=== PATIENT | male | born 1955 | race Caucasian/White ===

== ENCOUNTER → 2016-11-05 | Outpatient (CLI) | payer OTHER ==
[~2016-11-05] MED LIST: ASPIRIN81 M1; FLOMAX0.4 MG; LANTUS100 U/ML SC; LASIX40 MG; LIPITOR40 MG; LISINOPRIL5 MG; LOPID600 MG; LYRICA150 MG PO; METFORMIN500 MG PO; METHADONE10 MG; METOPROLOL25 MG; MICRO-K LS20 MEQ; PERCOCET 325 MG1 TA2; PRILOSEC40 MG; REGLAN10 MG; RESTORIL15 MG
== END | disposition home or self-care (01) ==
LOC: RAD 13:08
DX: M47.897 Other spondylosis, lumbosacral region (principal); R10.30 Lower abdominal pain, unspecified; M96.1 Postlaminectomy syndrome, not elsewhere classified; I70.0 Atherosclerosis of aorta; M16.11 Unilateral primary osteoarthritis, right hip

== ENCOUNTER 2017-03-05 14:53 | Inpatient (IN) | payer OTHER ==
[~2017-03-05] VITALS: Ht 172.7 cm; Wt 96.3 kg
--- NOTE | ~2017-03-05 | O ---
[place], [place] OPERATIVE NOTE NAME: LENNY ROBINS SR UNIT #: [id number] ROOM: [facility] DOCTOR: VICTOR M ALCALA DPM BIRTHDATE: [birth year] DOS: 03/07/2017 SURGEON: Victor M Alcala DPM PREOPERATIVE DIAGNOSIS: Abscess, right foot secondary to foreign body as well as diabetes. POSTOPERATIVE DIAGNOSIS: Abscess, right foot secondary to foreign body as well as diabetes. PROCEDURE: Incision and drainage of abscess, right foot. ANESTHESIA: LMAC. INJECTABLES: 10 mL of 0.5% Marcaine plain. ESTIMATED BLOOD LOSS: About 1 mL. COMPLICATIONS: None. DESCRIPTION OF PROCEDURE: After proper preoperative evaluation, patient brought in the OR and placed on the OR table in supine position. Anesthesia was then administered per anesthesia record. Next, a total of 10 mL of 0.5% Marcaine plain was injected proximal to the right second MPJ in a field block fashion. The area was then prepped and draped in usual sterile manner. Right foot was lowered to the surgical field. Attention was directed to the right foot where there was noted to be positive edema and fluctuance localized to the plantar right foot just at the base of the right second toe near the MPJ. There was erythema dorsally extending to the dorsal mid foot with increased temperature and there was a small puncture wound noted at the plantar right second MPJ. Next, using a 15 blade, a 2.5 cm incision was made overlying the puncture wound and there was found to be an abscess that was into subcutaneous tissue about 2 mL of purulent drainage was drained from the area. The area was inspected and no remaining foreign body was seen at this time. The area did track dorsally towards the second interspace and using a [place] elevator, this tract was extended dorsally and a 1 cm incision was made dorsally. There was noted to be about 0.5 mL of purulence at the dorsal incision. Cultures were then taken, will be sent for Gram stain culture and sensitivity, aerobic and anaerobic. Pulse stonecutter assistant was then used to irrigate 3 liters of normal saline through the wounds. Half inch plain Nu Gauze packing was placed followed by 4 x 4, dry dressing as well as Aleksandar wrap. Please note no foreign body was found. No bone appeared to be involved. The patient tolerated the procedure and anesthesia well and left the OR with vital signs stable and intact and transferred to the recovery room. The patient does have a consultation with Dr. Meyer for vascular evaluation and we will start daily dressing changes to the area. [place], [place] OPERATIVE NOTE NAME: ROBINS SRLENNY Kelsy UNIT #: [id number] ROOM: [facility] DOCTOR: VICTOR M ALCALA DPM BIRTHDATE: [birth year] VICTOR M ALCALA DPM CM:OPRECORD:OPERATIVE NOTE [id number] VICTOR M ALCALA DPM 03/08/17 0942 interface
--- NOTE | ~2017-03-05 | PR ---
[place], [place] PROGRESS NOTE NAME: LENNY ROBINS SR [id number] UNIT #: [id number] ROOM: 501 DOCTOR: HERIBERTO BARRIOS DPM BIRTHDATE: [birth year] DOS: 03/09/2017 SUBJECTIVE: The patient is seen postop I and D of abscess, right foot. The patient has some discomfort to the area, but otherwise feels improvement. OBJECTIVE: Upon removal of the dressing and packing, the edema appears resolved to the forefoot that I had noted on . There is decreased localized erythema. Upon removal of the packing, there are no signs of purulent drainage or foul odor. No signs of gangrenous changes. He at this point appears to be doing well post I and D of abscess. Again, the patient's vascular status is decreased as mentioned in my previous note. The patient was seen by Dr. Meyer and will be going for arterial procedure with possible stents on Saturday. His LUISITO on the right was 0.45 as I previously mentioned. ASSESSMENT: Postop incision and drainage, right foot. PLAN: Evaluation and management. Discussed with the patient extensively the importance of undergoing the arterial procedure to salvage his foot and leg. The patient is completely understandable and agreeable to the procedure and realizes the risk that he is currently in with the infected foot with the decreased circulation. I changed the dressing and packing consisting of 0.5 inch plain packing with wet to dry dressing with 4 x 4s, Kerlix and Aleksandar bandage and we will continue via nursing b.i.d. We will see the patient tomorrow or Saturday for followup. He is stable at this time and again will be going tomorrow or Saturday to [place] with Dr. Meyer for vascular intervention to help heal the patient's right foot infection and ulcerative lesions. HERIBERTO BARRIOS DPM CM:PNTRANS [id number] HERIBERTO BARRIOS DPM 03/09/17 1023 interface
--- NOTE | ~2017-03-05 | PR ---
[place], [place] PROGRESS NOTE NAME: LENNY ROBINS SR [facility] #: [id number] UNIT #: [id number] ROOM: 501 DOCTOR: HERIBERTO BARRIOS DPM BIRTHDATE: [birth year] DOS: 03/07/2017 SUBJECTIVE: The patient presents for followup of cellulitis, abscess of the right foot. The patient had a splinter removed from his foot yesterday by Dr. Montero. The patient feels overall improvement. Clinically, there is decreased erythema from the marked line of demarcation; however, there is still significant edema and erythema to the right forefoot. There is an open wound to the plantar second right MPJ with small amount of purulence noted and increased temperature consistent with possible underlying abscess. The patient was unable to have an MRI performed due to metal fragment in his hands. The patient's radiograph revealed soft tissue swelling consistent with cellulitis. No soft tissue gas or radiopaque foreign body, no apparent osteomyelitis. The patient's ultrasound arterial exam did reveal quickly reduced LUISITO indices. Bilateral moderate significant femoral and popliteal tandem stenosis. ASSESSMENT: Underlying abscess, plantar second right MPJ peripheral vascular disease. PLAN: Evaluation and management were discussed with the patient. I think he still has an underlying small abscess to the area and I recommend surgical incision and drainage meticulously due to the patient's vascular findings. The case will be performed tomorrow by Dr. Alcala. I discussed the case in detail with Dr. Alcala. Ordered n.p.o. after midnight. Ordered the consent for surgery. The [facility] will be held for surgery tomorrow, ordered PT, PTT for the morning and we will also consult Dr. Meyer for a vascular consultation to help with postoperative healing. I do not believe the surgical procedure should wait until vascular intervention is performed due to the erythema and edema, underlying high A1c and the potential for progression of the infection. The patient understood this and we will proceed with surgical intervention tomorrow. HERIBERTO BARRIOS DPM CM:PNTRANS [id number] HERIBERTO BARRIOS DPM 03/07/17 3529 interface
[~2017-03-05 14:53] MED LIST changes: -ASPIRIN81 M1; +ASPIRIN81 M1 PO; -LIPITOR40 MG; +LIPITOR40 MG PO; -LYRICA150 MG PO; +LYRICA200 M1 PO
[2017-03-05 15:03] VITALS: BP 157/73
[2017-03-05 15:43] LABS: BASO % 0.3 % (0.0-1.0); EOS % 0.2 % (1.0-4.0); HEMATOCRIT 35.5 % (42.0-52.0); HEMOGLOBIN 11.6 g/dl (14.0-18.0); LYMPH # 1.9 10*3/uL (1.3-4.4); LYMPH % 13.2 % (27.0-41.0); MEAN CELL VOLUME 81.4 fl (80.0-94.0); MEAN CORPUSCULAR HGB 26.6 pg (27.0-31.0); MEAN CORPUSCULAR HGB CONC 32.7 g/dl (33.0-37.0); MEAN PLATELET VOLUME 11.2 fl (9.6-12.3); MONO # 1.2 10*3/uL (0.1-1.0); NEUT # 11.3 10*3/uL (2.3-7.9); NEUT % 77.9 % (47.0-73.0); PLATELET COUNT AUTOMATED 216 10*3/uL (130-400); RED BLOOD COUNT 4.36 10*6/uL (4.50-5.90); RED CELL DISTRI WIDTH 14.7 % (0-14.5); WHITE BLOOD COUNT 14.5 10*3/uL (4.8-10.8)
[2017-03-05 16:00] LABS: ALBUMIN 2.9 gm/dl (3.1-4.5); ALKALINE PHOSPHATASE 86 U/L (45-117); BUN 22 mg/dl (7-24); CHLORIDE 95 mmol/L (98-107); CREATININE 1.02 mg/dL (0.70-1.30); POTASSIUM 3.7 mmol/L (3.5-5.1); SGOT/AST 10 IU/L (3-35); SGPT/ALT 20 U/L (12-78); SODIUM 134 mmol/L (136-145); TOTAL PROTEIN 6.9 gm/dL (6.4-8.2); TROPONIN I < 0.015 ng/ml (<0.045)
[2017-03-05 17:15] VITALS: BP 128/56
[2017-03-05] MEDS ORDERED: CARVEDILOL3.125 MG PO (17:36)
[2017-03-05] MEDS ORDERED: LOSARTAN POTASS50 M1 PO (17:36)
[2017-03-05] MEDS ORDERED: MECLIZINE HCL25 M2 PO (17:38)
[2017-03-05 17:50] VITALS: BP 143/52
[2017-03-05 20:00] VITALS: BP 134/46
[2017-03-05] MEDS ORDERED: HUMALOG100 UNIT/1 SQ (21:25)
[2017-03-06] VITALS: BP 189/74
[2017-03-06] MEDS ORDERED: METHADONE HCL10 MG PO (02:57)
[2017-03-06] MEDS ORDERED: GOOD NEIGHBOR L10 MG PO (02:58)
[2017-03-06] MEDS ORDERED: FUROSEMIDE40 MG PO (02:58)
[2017-03-06] MEDS ORDERED: GEMFIBROZIL600 MG PO (02:58)
[2017-03-06] MEDS ORDERED: POTASSIUM CHLO20 ME4 PO (02:59)
[2017-03-06] MEDS ORDERED: ATORVASTATIN CA20 M1 PO (03:00)
[2017-03-06] MEDS ORDERED: TEMAZEPAM15 M1 PO (03:00)
[2017-03-06] MEDS ORDERED: OMEPRAZOLE40 MG PO (03:00)
[2017-03-06] MEDS ORDERED: FLONASE ALLERG9.9 ML NAS (03:01)
[2017-03-06] MEDS ORDERED: ZETIA10 MG PO (03:02)
[2017-03-06 06:20] LABS: BASO % 0.3 % (0.0-1.0); EOS # 0.1 10*3/uL (0.0-0.4); EOS % 1.3 % (1.0-4.0); HEMATOCRIT 36.8 % (42.0-52.0); HEMOGLOBIN 11.9 g/dl (14.0-18.0); LYMPH # 2.6 10*3/uL (1.3-4.4); LYMPH % 25.2 % (27.0-41.0); MEAN CELL VOLUME 83.6 fl (80.0-94.0); MEAN CORPUSCULAR HGB CONC 32.3 g/dl (33.0-37.0); MEAN PLATELET VOLUME 11.3 fl (9.6-12.3); MONO # 0.9 10*3/uL (0.1-1.0); MONO % 9.2 % (3.0-9.0); NEUT # 6.5 10*3/uL (2.3-7.9); NEUT % 63.5 % (47.0-73.0); PLATELET COUNT AUTOMATED 215 10*3/uL (130-400); RED CELL DISTRI WIDTH 14.7 % (0-14.5); WHITE BLOOD COUNT 10.2 10*3/uL (4.8-10.8)
[2017-03-06 06:26] LABS: ALBUMIN 2.6 gm/dl (3.1-4.5); ALKALINE PHOSPHATASE 100 U/L (45-117); CHLORIDE 100 mmol/L (98-107); CHOLESTEROL 86 mg/dL (<200); CREATININE 0.62 mg/dL (0.70-1.30); FREE T4 1.03 ng/dl (0.76-1.46); HDL CHOLESTEROL 38 mg/dl (40-60); LDL CHOLESTEROL 22 mg/dL (9-159); PHOSPHOROUS 2.1 mg/dL (2.5-4.9); POTASSIUM 3.4 mmol/L (3.5-5.1); SGOT/AST 9 IU/L (3-35); SGPT/ALT 17 U/L (12-78); SODIUM 140 mmol/L (136-145); TOTAL PROTEIN 6.5 gm/dL (6.4-8.2); TRIGLYCERIDES 131 mg/dl (<150); VLDL CHOLESTEROL 26 mg/dL (6-40)
[2017-03-06 06:27] LABS: ACT PARTIAL THROMBO TIME 29.1 SECONDS (20.8-31.5)
[2017-03-06 06:37] LABS: BUN 11 mg/dl (7-24)
[2017-03-06 08:00] VITALS: BP 194/67
[2017-03-06] MEDS ORDERED: TOUJEO SOL300 UNIT/1 SQ (08:02)
[2017-03-06] MEDS ORDERED: Percocet 325 MG1 TAB PO (08:06)
[2017-03-06 12:00] VITALS: BP 163/54
[2017-03-06 16:00] VITALS: BP 138/57
[2017-03-06 20:00] VITALS: BP 180/64
[2017-03-07] VITALS: BP 167/52
[2017-03-07 07:37] LABS: BASO # 0.1 10*3/uL (0.0-0.1); BASO % 0.5 % (0.0-1.0); EOS # 0.2 10*3/uL (0.0-0.4); EOS % 2.2 % (1.0-4.0); HEMATOCRIT 35.6 % (42.0-52.0); HEMOGLOBIN 11.3 g/dl (14.0-18.0); LYMPH # 2.5 10*3/uL (1.3-4.4); MEAN CELL VOLUME 83.8 fl (80.0-94.0); MEAN CORPUSCULAR HGB 26.6 pg (27.0-31.0); MEAN CORPUSCULAR HGB CONC 31.7 g/dl (33.0-37.0); MEAN PLATELET VOLUME 11.7 fl (9.6-12.3); MONO # 0.9 10*3/uL (0.1-1.0); MONO % 8.5 % (3.0-9.0); NEUT # 6.5 10*3/uL (2.3-7.9); NEUT % 63.4 % (47.0-73.0); PLATELET COUNT AUTOMATED 209 10*3/uL (130-400); RED BLOOD COUNT 4.25 10*6/uL (4.50-5.90); RED CELL DISTRI WIDTH 14.8 % (0-14.5); WHITE BLOOD COUNT 10.2 10*3/uL (4.8-10.8)
[2017-03-07 07:45] LABS: BUN 11 mg/dl (7-24); CHLORIDE 101 mmol/L (98-107); CREATININE 0.51 mg/dL (0.70-1.30); SODIUM 136 mmol/L (136-145)
[2017-03-07 07:50] LABS: POTASSIUM 4.8 mmol/L (3.5-5.1)
[2017-03-07 08:00] VITALS: BP 134/56
[2017-03-07 12:00] VITALS: BP 142/52
[2017-03-07 16:00] VITALS: BP 124/100
[2017-03-07 20:00] VITALS: BP 137/77
[2017-03-08] VITALS (9 sets, daily range): BP systolic 108–182; BP diastolic 43–72
[2017-03-08 06:43] LABS: BASO % 0.4 % (0.0-1.0); EOS # 0.2 10*3/uL (0.0-0.4); EOS % 2.2 % (1.0-4.0); HEMATOCRIT 32.8 % (42.0-52.0); HEMOGLOBIN 10.7 g/dl (14.0-18.0); LYMPH # 2.2 10*3/uL (1.3-4.4); LYMPH % 22.3 % (27.0-41.0); MEAN CELL VOLUME 81.8 fl (80.0-94.0); MEAN CORPUSCULAR HGB 26.7 pg (27.0-31.0); MEAN CORPUSCULAR HGB CONC 32.6 g/dl (33.0-37.0); MEAN PLATELET VOLUME 11.3 fl (9.6-12.3); MONO # 0.8 10*3/uL (0.1-1.0); MONO % 8.6 % (3.0-9.0); NEUT # 6.4 10*3/uL (2.3-7.9); NEUT % 66.1 % (47.0-73.0); PLATELET COUNT AUTOMATED 216 10*3/uL (130-400); RED BLOOD COUNT 4.01 10*6/uL (4.50-5.90); RED CELL DISTRI WIDTH 14.6 % (0-14.5); WHITE BLOOD COUNT 9.6 10*3/uL (4.8-10.8)
[2017-03-08 07:12] LABS: ACT PARTIAL THROMBO TIME 28.9 SECONDS (20.8-31.5)
[2017-03-08 07:16] LABS: CHLORIDE 98 mmol/L (98-107); POTASSIUM 4.1 mmol/L (3.5-5.1); SODIUM 137 mmol/L (136-145)
[2017-03-08 07:21] LABS: BUN 12 mg/dl (7-24); CREATININE 0.63 mg/dL (0.70-1.30)
[2017-03-09] VITALS: BP 116/94; BP 145/45
[2017-03-09 08:00] VITALS: BP 144/50
[2017-03-09 12:00] VITALS: BP 119/67
[2017-03-09 16:00] VITALS: BP 168/54
[2017-03-09 20:00] VITALS: BP 104/74; BP 147/84
[2017-03-10] VITALS: BP 147/53
[2017-03-10 07:20] LABS: BASO # 0.1 10*3/uL (0.0-0.1); BASO % 0.6 % (0.0-1.0); EOS # 0.3 10*3/uL (0.0-0.4); EOS % 3.4 % (1.0-4.0); HEMATOCRIT 32.7 % (42.0-52.0); HEMOGLOBIN 10.3 g/dl (14.0-18.0); MEAN CELL VOLUME 84.1 fl (80.0-94.0); MEAN CORPUSCULAR HGB 26.5 pg (27.0-31.0); MEAN CORPUSCULAR HGB CONC 31.5 g/dl (33.0-37.0); MONO # 0.7 10*3/uL (0.1-1.0); MONO % 8.9 % (3.0-9.0); NEUT # 4.8 10*3/uL (2.3-7.9); NEUT % 61.5 % (47.0-73.0); PLATELET COUNT AUTOMATED 238 10*3/uL (130-400); RED BLOOD COUNT 3.89 10*6/uL (4.50-5.90); RED CELL DISTRI WIDTH 14.6 % (0-14.5); WHITE BLOOD COUNT 7.8 10*3/uL (4.8-10.8)
[2017-03-10 07:49] LABS: BUN 13 mg/dl (7-24); CHLORIDE 100 mmol/L (98-107); CREATININE 0.56 mg/dL (0.70-1.30); POTASSIUM 4.3 mmol/L (3.5-5.1); SODIUM 138 mmol/L (136-145)
[2017-03-10 08:00] VITALS: BP 137/55
[2017-03-10 12:00] VITALS: BP 160/58
[2017-03-10 16:00] VITALS: BP 165/59
[2017-03-10 19:54] VITALS: BP 178/50
[2017-03-10 23:47] VITALS: BP 184/62
[2017-03-11 07:24] LABS: BASO # 0.1 10*3/uL (0.0-0.1); BASO % 0.6 % (0.0-1.0); EOS # 0.3 10*3/uL (0.0-0.4); EOS % 3.9 % (1.0-4.0); HEMATOCRIT 33.4 % (42.0-52.0); MEAN CELL VOLUME 82.7 fl (80.0-94.0); MEAN CORPUSCULAR HGB 27.2 pg (27.0-31.0); MEAN CORPUSCULAR HGB CONC 32.9 g/dl (33.0-37.0); MEAN PLATELET VOLUME 9.9 fl (9.6-12.3); MONO # 0.7 10*3/uL (0.1-1.0); NEUT # 4.8 10*3/uL (2.3-7.9); NEUT % 60.9 % (47.0-73.0); PLATELET COUNT AUTOMATED 260 10*3/uL (130-400); RED BLOOD COUNT 4.04 10*6/uL (4.50-5.90); RED CELL DISTRI WIDTH 14.6 % (0-14.5); WHITE BLOOD COUNT 7.9 10*3/uL (4.8-10.8)
[2017-03-11 07:48] LABS: BUN 12 mg/dl (7-24); CHLORIDE 101 mmol/L (98-107); CREATININE 0.61 mg/dL (0.70-1.30); POTASSIUM 3.9 mmol/L (3.5-5.1); SODIUM 140 mmol/L (136-145)
[2017-03-11] MEDS ORDERED: VITAMIN D5000 UNI1 PO (07:51)
[2017-03-11] MEDS ORDERED: ZOSYN 3.373.375 GM/5 IV (07:51)
== END 2017-03-11 09:13 | disposition short-term general hospital (02) | DRG 853 ==
LOC: ED 14:53 → 5E 17:06 → EDHOLD 17:06 → 5E 17:23
PROVIDERS: Family Medicine; Internal Medicine; Nurse Practitioner Family; Podiatrist
PROC: 0J9Q0ZZ Drainage of Right Foot Subcutaneous Tissue and Fascia, Open Approach (ICD-10-PCS; principal; 2017-03-07)
DX: A41.9 Sepsis, unspecified organism (principal); E43 Unspecified severe protein-calorie malnutrition; E11.42 Type 2 diabetes mellitus with diabetic polyneuropathy; E87.2 Acidosis; L02.415 Cutaneous abscess of right lower limb; E11.51 Type 2 diabetes mellitus with diabetic peripheral angiopathy without gangrene; E83.39 Other disorders of phosphorus metabolism; L03.115 Cellulitis of right lower limb; E87.1 Hypo-osmolality and hyponatremia; I50.9 Heart failure, unspecified; I11.0 Hypertensive heart disease with heart failure; R65.20 Severe sepsis without septic shock; E87.6 Hypokalemia; E11.628 Type 2 diabetes mellitus with other skin complications; K21.9 Gastro-esophageal reflux disease without esophagitis; I25.10 Atherosclerotic heart disease of native coronary artery without angina pectoris; M54.9 Dorsalgia, unspecified; G89.29 Other chronic pain; E78.5 Hyperlipidemia, unspecified; E11.65 Type 2 diabetes mellitus with hyperglycemia; D64.9 Anemia, unspecified; Z88.8 Allergy status to other drugs, medicaments and biological substances; Z79.82 Long term (current) use of aspirin; Z79.899 Other long term (current) drug therapy; Z79.4 Long term (current) use of insulin; Z68.31 Body mass index [BMI] 31.0-31.9, adult

== ENCOUNTER → 2017-03-21 | Outpatient (CLI) | payer OTHER ==
[~2017-03-21] MED LIST changes: +ATORVASTATIN CA20 M1 PO; +CARVEDILOL3.125 MG PO; +DOXYCYCLINE100 M3 PO; +FLONASE ALLERG9.9 ML NAS; +FUROSEMIDE40 MG PO; +GEMFIBROZIL600 MG PO; +GOOD NEIGHBOR L10 MG PO; +HUMALOG100 UNIT/1 SQ; +LEVOFLOXACIN500 MG PO; +LOSARTAN POTASS50 M1 PO; +MECLIZINE HCL25 M2 PO; +METHADONE HCL10 MG PO; +OMEPRAZOLE40 MG PO; +POTASSIUM CHLO20 ME4 PO; +Percocet 325 MG1 TAB PO; +TEMAZEPAM15 M1 PO; +TOUJEO SOL300 UNIT/1 SQ; +VITAMIN D5000 UNI1 PO; +ZETIA10 MG PO; +ZOSYN 3.373.375 GM/5 IV
== END | disposition home or self-care (01) ==
LOC: WOUNDCARE 03-20 03:16
DX: T81.89XA Other complications of procedures, not elsewhere classified, initial encounter (principal); E11.621 Type 2 diabetes mellitus with foot ulcer; L97.511 Non-pressure chronic ulcer of other part of right foot limited to breakdown of skin; E11.40 Type 2 diabetes mellitus with diabetic neuropathy, unspecified; I10 Essential (primary) hypertension; G89.29 Other chronic pain; M54.9 Dorsalgia, unspecified; Z87.891 Personal history of nicotine dependence; Y83.8 Other surgical procedures as the cause of abnormal reaction of the patient, or of later complication, without mention of misadventure at the time of the procedure

== ENCOUNTER → 2017-03-27 | Outpatient (CLI) | payer OTHER | END | disposition home or self-care (01) | LOC: WOUNDCARE 01:01 | DX: T81.89XD Other complications of procedures, not elsewhere classified, subsequent encounter (principal); L84 Corns and callosities; E11.621 Type 2 diabetes mellitus with foot ulcer; L97.412 Non-pressure chronic ulcer of right heel and midfoot with fat layer exposed; E11.40 Type 2 diabetes mellitus with diabetic neuropathy, unspecified; G89.29 Other chronic pain; M54.9 Dorsalgia, unspecified; I10 Essential (primary) hypertension; Z87.891 Personal history of nicotine dependence; Y83.8 Other surgical procedures as the cause of abnormal reaction of the patient, or of later complication, without mention of misadventure at the time of the procedure ==

== ENCOUNTER 2017-04-16 21:39 | Emergency (ER) | payer OTHER ==
[~2017-04-16] VITALS: Ht 175.2 cm; Wt 79.4 kg
[~2017-04-16 21:39] MED LIST changes: -DOXYCYCLINE100 M3 PO; -LEVOFLOXACIN500 MG PO
[2017-04-16 21:44] VITALS: BP 130/69
== END 2017-04-16 23:08 | disposition home or self-care (01) ==
LOC: ED 21:39
DX: Z76.0 Encounter for issue of repeat prescription (principal); G89.29 Other chronic pain; I25.10 Atherosclerotic heart disease of native coronary artery without angina pectoris; I11.0 Hypertensive heart disease with heart failure; I50.9 Heart failure, unspecified; E78.5 Hyperlipidemia, unspecified; E11.65 Type 2 diabetes mellitus with hyperglycemia; Z98.890 Other specified postprocedural states; Z79.4 Long term (current) use of insulin; Z79.899 Other long term (current) drug therapy; Z79.82 Long term (current) use of aspirin; Z88.8 Allergy status to other drugs, medicaments and biological substances; Z88.6 Allergy status to analgesic agent

== ENCOUNTER 2017-04-18 21:46 | Emergency (ER) | payer OTHER ==
[~2017-04-18] VITALS: Wt 77.1 kg
[2017-04-18 21:51] VITALS: BP 145/63
== END 2017-04-18 22:52 | disposition home or self-care (01) ==
LOC: ED 21:46
DX: Z76.0 Encounter for issue of repeat prescription (principal); I25.10 Atherosclerotic heart disease of native coronary artery without angina pectoris; I11.0 Hypertensive heart disease with heart failure; I50.9 Heart failure, unspecified; G89.29 Other chronic pain; K21.9 Gastro-esophageal reflux disease without esophagitis; E78.5 Hyperlipidemia, unspecified; E11.65 Type 2 diabetes mellitus with hyperglycemia; Z98.890 Other specified postprocedural states; Z79.4 Long term (current) use of insulin; Z79.899 Other long term (current) drug therapy; Z79.82 Long term (current) use of aspirin; Z88.8 Allergy status to other drugs, medicaments and biological substances; Z88.6 Allergy status to analgesic agent

== ENCOUNTER → 2017-04-25 | Outpatient (CLI) | payer OTHER | END | disposition home or self-care (01) | LOC: US 04-19 15:00 | DX: I73.9 Peripheral vascular disease, unspecified (principal) ==

== ENCOUNTER 2017-05-02 13:29 | Inpatient (IN) | payer OTHER ==
[~2017-05-02] VITALS: Ht 176.5 cm; Wt 96.6 kg
--- NOTE | ~2017-05-02 | PR ---
[place], [place] PROGRESS NOTE NAME[id number] #: [id number] ROOM: 424 DOCTOR: HERIBERTO BARRIOS DPM BIRTHDATE: [birth year] DOS: 05/04/2017 SUBJECTIVE: The patient was seen for followup diabetic foot care. The patient also complains of pain still to the bottom of the right foot. OBJECTIVE: Pedal pulses decreased. Decreased hair growth, nail thickening, pigmentary discoloration. Decreased epicritic sensations. Mild edema. Temperature changes. Crumbly thickened yellow nails 1 through 5 bilateral, causing discomfort, erythema with edema to the left lower extremity, but improving. Upon debridement to the plantar second right MPJ, there is a small pocket of purulent drainage noted. Incision and drainage was performed with a 10 blade. The drainage was cultured per order. Apply Bactroban and dressing daily will be ordered to the post-abscess site plantar second right MPJ also. ASSESSMENT: Abscess, plantar second right MPJ; onychomycosis; diabetes with PVD; neuropathy. PLAN: Incision and drainage was performed plantar second right MPJ with a 10 blade. Approximately 18 mL of purulent drainage was noted, cultured and drained. Ordered Bactroban and gauze dressing be applied daily. Debrided nails 1 through 5 bilateral foot. The patient will be seen for postoperative followup tomorrow or Saturday and additional orders as needed. The radiographs revealed no signs of osteomyelitis of the right foot. HERIBERTO BARRIOS DPM CM:PNISAMAR [id number] HERIBERTO BARRIOS DPM 05/04/17 1206 interface
--- NOTE | ~2017-05-02 | CON ---
[place], [place] REPORT OF CONSULTATION NAME[facility]INS SR [id number] #: [id number] ROOM: 424 DOCTOR: AD GARCIAVICTOR M BIRTHDATE: [birth year] DOS: 05/03/2017 SUBJECTIVE: The patient is seen today as consulted for diabetic foot care as well. The patient is complaining of right foot pain. He states a few months ago, he had a foreign body in his right foot. He had subsequent surgery for removal and debridement. He states it has been sore ever since. He also has history of PAD, saw Dr. Meyer, who did intervention, but he is still complaining of pain in both legs with ambulation, claudication symptoms. Also, complains of swelling in his legs. PAST MEDICAL HISTORY: Positive for coronary artery disease; congestive heart failure; chronic back pain; gastroesophageal reflux disease; hyperlipidemia; hypertension; type 2 diabetes; history of infection, foreign body, right foot; history of significant PAD, status post intervention. ALLERGIES: DOLOBID and ROBAXIN. CURRENT MEDICATIONS: Include Cozaar, Claritin, Levemir, Lovenox, Zetia, vitamin D, Lopid, Prilosec, methadone, vancomycin, Lyrica, insulin, Lipitor, Percocet and Antivert. OBJECTIVE: Upon lower extremity examination, pedal pulses are decreased bilaterally. Skin temperature is warm at the feet and toes. CFT is delayed at this time. There is absent hair growth. Skin is thin and shiny. There is dependent edema noted bilaterally, left slightly worse than right, but negative Homans sign noted bilaterally. Sensation appears grossly intact and symmetrical to palpation and range of motion. He has some scarring noted at the plantar right forefoot with thick skin with pain noted to palpation in the area. Small scar noted in dorsal right forefoot as well. No signs of active infection. No fluctuance or signs of abscess. Nails bilaterally are thick and mycotic. There is some erythema noted diffusely throughout the left leg consistent with cellulitis. No blisters or open areas. His vascular exam done on April 25 showed a still monophasic flow, but it was improved from previous studies. ASSESSMENT: Diabetes mellitus; cellulitis, left lower extremity; history of foreign body, right foot with right foot pain; onychomycosis bilaterally. PLAN: Consult is performed. I reviewed the patient's vascular studies. I ordered an x-ray of the right foot to rule out any erosive process or retained foreign body. I will come back tomorrow and debride his toenails on both feet. Continue with antibiotics. Follow up tomorrow for reevaluation. Thank you for the opportunity to take part in care of this patient. [place], [place] REPORT OF CONSULTATION NAME: LENNY ROBINS SR UNIT #: [id number] ROOM: 424 DOCTOR: VICTOR M DUONG DPM BIRTHDATE: [birth year] VICTOR M DUONG DPM CM:CONSTR:REPORT OF CONSULTATION 1205 05/03/17 1246 interface
[2017-05-02 13:48] VITALS: BP 114/84
[2017-05-02] MEDS ORDERED: LEVOFLOXACIN500 MG PO (14:01)
[2017-05-02 14:18] VITALS: BP 107/72
[2017-05-02 14:20] LABS: BASO % 0.1 % (0.0-1.0); EOS # 0.2 10*3/uL (0.0-0.4); EOS % 2.3 % (1.0-4.0); HEMATOCRIT 35.3 % (42.0-52.0); HEMOGLOBIN 11.6 g/dl (14.0-18.0); LYMPH # 2.2 10*3/uL (1.3-4.4); MEAN CORPUSCULAR HGB 26.6 pg (27.0-31.0); MEAN CORPUSCULAR HGB CONC 32.9 g/dl (33.0-37.0); MEAN PLATELET VOLUME 11.3 fl (9.6-12.3); MONO # 0.6 10*3/uL (0.1-1.0); MONO % 8.8 % (3.0-9.0); NEUT # 3.8 10*3/uL (2.3-7.9); NEUT % 56.4 % (47.0-73.0); PLATELET COUNT AUTOMATED 237 10*3/uL (130-400); RED BLOOD COUNT 4.36 10*6/uL (4.50-5.90); RED CELL DISTRI WIDTH 14.8 % (0-14.5); WHITE BLOOD COUNT 6.8 10*3/uL (4.8-10.8)
[2017-05-02 14:43] LABS: ALBUMIN 3.3 gm/dl (3.1-4.5); ALKALINE PHOSPHATASE 131 U/L (45-117); BUN 17 mg/dl (7-24); CHLORIDE 95 mmol/L (98-107); CREATININE 0.85 mg/dL (0.70-1.30); POTASSIUM 4.6 mmol/L (3.5-5.1); SGOT/AST 22 IU/L (3-35); SGPT/ALT 26 U/L (12-78); SODIUM 131 mmol/L (136-145); TOTAL PROTEIN 7.4 gm/dL (6.4-8.2)
[2017-05-02 16:00] VITALS: BP 132/45
[2017-05-02 20:00] VITALS: BP 163/76
[2017-05-03] VITALS: BP 149/52
[2017-05-03 07:17] LABS: BASO % 0.3 % (0.0-1.0); EOS # 0.3 10*3/uL (0.0-0.4); EOS % 3.5 % (1.0-4.0); HEMOGLOBIN 11.7 g/dl (14.0-18.0); LYMPH # 1.7 10*3/uL (1.3-4.4); LYMPH % 18.4 % (27.0-41.0); MEAN CELL VOLUME 81.8 fl (80.0-94.0); MEAN CORPUSCULAR HGB 26.6 pg (27.0-31.0); MEAN CORPUSCULAR HGB CONC 32.5 g/dl (33.0-37.0); MEAN PLATELET VOLUME 10.8 fl (9.6-12.3); MONO # 0.8 10*3/uL (0.1-1.0); MONO % 8.4 % (3.0-9.0); NEUT # 6.4 10*3/uL (2.3-7.9); NEUT % 69.1 % (47.0-73.0); PLATELET COUNT AUTOMATED 219 10*3/uL (130-400); RED CELL DISTRI WIDTH 14.9 % (0-14.5); WHITE BLOOD COUNT 9.3 10*3/uL (4.8-10.8)
[2017-05-03 07:38] LABS: BUN 15 mg/dl (7-24); CHLORIDE 98 mmol/L (98-107); CREATININE 0.82 mg/dL (0.70-1.30); PHOSPHOROUS 2.7 mg/dL (2.5-4.9); SODIUM 135 mmol/L (136-145)
[2017-05-03 08:00] VITALS: BP 144/70
[2017-05-03 12:00] VITALS: BP 126/66
[2017-05-03 14:26] LABS: BASO % 0.4 % (0.0-1.0); EOS # 0.3 10*3/uL (0.0-0.4); EOS % 4.2 % (1.0-4.0); HEMATOCRIT 33.8 % (42.0-52.0); LYMPH # 1.9 10*3/uL (1.3-4.4); LYMPH % 25.1 % (27.0-41.0); MEAN CELL VOLUME 82.4 fl (80.0-94.0); MEAN CORPUSCULAR HGB 26.8 pg (27.0-31.0); MEAN CORPUSCULAR HGB CONC 32.5 g/dl (33.0-37.0); MEAN PLATELET VOLUME 10.9 fl (9.6-12.3); MONO # 0.7 10*3/uL (0.1-1.0); MONO % 8.5 % (3.0-9.0); NEUT # 4.7 10*3/uL (2.3-7.9); NEUT % 61.3 % (47.0-73.0); PLATELET COUNT AUTOMATED 216 10*3/uL (130-400); RED CELL DISTRI WIDTH 15.1 % (0-14.5); WHITE BLOOD COUNT 7.6 10*3/uL (4.8-10.8)
[2017-05-03 14:44] LABS: ALBUMIN 2.8 gm/dl (3.1-4.5); ALKALINE PHOSPHATASE 115 U/L (45-117); BUN 14 mg/dl (7-24); CHLORIDE 100 mmol/L (98-107); CREATININE 0.78 mg/dL (0.70-1.30); POTASSIUM 4.5 mmol/L (3.5-5.1); SGOT/AST 17 IU/L (3-35); SGPT/ALT 21 U/L (12-78); SODIUM 136 mmol/L (136-145); TOTAL PROTEIN 6.4 gm/dL (6.4-8.2)
[2017-05-03 16:00] VITALS: BP 144/40
[2017-05-03 20:00] VITALS: BP 149/69
[2017-05-04] VITALS: BP 147/55
[2017-05-04 08:00] VITALS: BP 134/60
[2017-05-04] MEDS ORDERED: DOXYCYCLINE100 M3 PO (11:16)
[2017-05-04 12:00] VITALS: BP 147/48
== END 2017-05-04 14:23 | disposition home or self-care (01) | DRG 872 ==
LOC: ED 13:29 → 4E 14:13 → EDHOLD 14:13 → 4E 14:30
PROVIDERS: Registered Nurse; Student in an Organized Health Care Education/Training Program
PROC: 0S9M3ZZ Drainage of Right Metatarsal-Phalangeal Joint, Percutaneous Approach (ICD-10-PCS; principal; 2017-05-04)
PROC: 0HBRXZZ Excision of Toe Nail, External Approach (ICD-10-PCS; 2017-05-04)
PROC: 0HBRXZZ Excision of Toe Nail, External Approach (ICD-10-PCS; 2017-05-04)
PROC: 0HBRXZZ Excision of Toe Nail, External Approach (ICD-10-PCS; 2017-05-04)
PROC: 0HBRXZZ Excision of Toe Nail, External Approach (ICD-10-PCS; 2017-05-04)
PROC: 0HBRXZZ Excision of Toe Nail, External Approach (ICD-10-PCS; 2017-05-04)
PROC: 0HBRXZZ Excision of Toe Nail, External Approach (ICD-10-PCS; 2017-05-04)
PROC: 0HBRXZZ Excision of Toe Nail, External Approach (ICD-10-PCS; 2017-05-04)
PROC: 0HBRXZZ Excision of Toe Nail, External Approach (ICD-10-PCS; 2017-05-04)
PROC: 0HBRXZZ Excision of Toe Nail, External Approach (ICD-10-PCS; 2017-05-04)
PROC: 0HBRXZZ Excision of Toe Nail, External Approach (ICD-10-PCS; 2017-05-04)
DX: A41.9 Sepsis, unspecified organism (principal); E11.51 Type 2 diabetes mellitus with diabetic peripheral angiopathy without gangrene; E11.40 Type 2 diabetes mellitus with diabetic neuropathy, unspecified; E87.2 Acidosis; E44.0 Moderate protein-calorie malnutrition; E87.1 Hypo-osmolality and hyponatremia; B35.1 Tinea unguium; L03.116 Cellulitis of left lower limb; L02.611 Cutaneous abscess of right foot; E11.65 Type 2 diabetes mellitus with hyperglycemia; E87.8 Other disorders of electrolyte and fluid balance, not elsewhere classified; I11.0 Hypertensive heart disease with heart failure; I50.9 Heart failure, unspecified; D64.9 Anemia, unspecified; K21.9 Gastro-esophageal reflux disease without esophagitis; M54.9 Dorsalgia, unspecified; G89.29 Other chronic pain; I25.10 Atherosclerotic heart disease of native coronary artery without angina pectoris; R74.8 Abnormal levels of other serum enzymes; E78.5 Hyperlipidemia, unspecified; R00.1 Bradycardia, unspecified; Z87.891 Personal history of nicotine dependence; Z78.9 Other specified health status; Z88.8 Allergy status to other drugs, medicaments and biological substances; Z79.899 Other long term (current) drug therapy; Z68.31 Body mass index [BMI] 31.0-31.9, adult; Z79.4 Long term (current) use of insulin

== ENCOUNTER 2018-04-02 21:40 | Inpatient (IN) | payer OTHER ==
[~2018-04-02] VITALS: Ht 175.3 cm; Wt 94.3 kg
--- NOTE | ~2018-04-02 | EKG ---
[place], [place] ELECTROCARDIOGRAM REPORT NAME: LENNY ROBINS SR UNIT #: [id number] ROOM: [place] [address] DOCTOR: MICHAEL DRAFT REPORT BIRTHDATE: [birth year] [facility] Test Date: 2018-04-03 Test Time: 08:38:05 Pat Name: LENNY ROBINS Department: Room: [place] [address] Gender: M School Office Manager: [id number] : 1955 Requested By: MALACHI MCGILL Order Number: [id number] Reading MD: Carl Ball MD Measurements Intervals [place] Rate: 44 P: 46 MS: 190 QRS: 30 QRSD: 89 T: 27 QT: 464 QTc: 397 Interpretive Statements Sinus bradycardia No change from earlier ECG this date Electronically Signed On 04-03-2018 17:48:17 PST by Carl Ball MD CM:EKGRPT:ELECTROCARDIOGRAM REPORT [id number] MALACHI RODRIGUEZ DRAFT REPORT MALACHI MCGILL
--- NOTE | ~2018-04-02 | EKG ---
[place], [place] ELECTROCARDIOGRAM REPORT NAME: LENNY ROBINS SR UNIT #: [id number] ROOM: 411 DOCTOR: MICHAEL DRAFT REPORT BIRTHDATE: [birth year] [facility] Test Date: 2018-04-04 Test Time: 07:07:19 Pat Name: LENNY ROBINS Department: Room: 411 Gender: M Paving Foreman: Dorothy Scruggs : 1955 Requested By: MALACHI MCGILL Order Number: [id number] Reading MD: Carl Ball MD Measurements Intervals [place] Rate: 49 P: 53 [place]: 183 QRS: 32 QRSD: 94 T: 43 QT: 457 QTc: 413 Interpretive Statements Sinus bradycardia Abnormal R-wave progression, early transition Compared to ECG 04/03/2018 08:38:05 No significant changes Electronically Signed On 04-04-2018 16:14:50 PST by Carl Ball MD CM:EKGRPT:ELECTROCARDIOGRAM REPORT [id number] MALACHI MCGILL EPIPHANY DRAFT REPORT MALACHI MCGILL
--- NOTE | ~2018-04-02 | EKG ---
[place], [place] ELECTROCARDIOGRAM REPORT NAME: LENNY ROBINS SR UNIT #: [id number] ROOM: [place] [address] DOCTOR: MICHAEL DRAFT REPORT BIRTHDATE: [birth year] [facility] Test Date: 2018-04-02 Test Time: 21:59:02 Pat Name: LENNY ROBINS Department: Room: [place] [address] Gender: M Records Officer: Janina Srivastava : 1955 Requested By: MARCOS CARRASCO Order Number: [id number] Reading MD: Carl Ball MD Measurements Intervals [place] Rate: 56 P: 58 CT: 170 QRS: 19 QRSD: 102 T: 24 QT: 428 QTc: 414 Interpretive Statements Sinus rhythm RSR' in V1 or V2, probably normal variant Compared to ECG 10/10/2017 06:50:29 RSR' in V1 or V2 now present Sinus bradycardia no longer present Electronically Signed On 04-03-2018 17:42:27 PST by Carl Ball MD CM:EKGRPT:ELECTROCARDIOGRAM REPORT [id number] MARCOS JOHNSON DRAFT REPORT MARCOS CARRASCO DO
[~2018-04-02 21:40] MED LIST changes: +ALDACTONE25 MG PO; +DOXYCYCLINE100 M3 PO; +LEVEMIR100 UNIT/1 SQ; +LEVOFLOXACIN500 MG PO; +NOVOLOG FL100 UNIT/1 SQ; +POTASSIUM CHLO20 ME3 PO; -POTASSIUM CHLO20 ME4 PO; +VITAMIN D-32000 UNIT PO
[2018-04-02 21:42] VITALS: BP 216/85
[2018-04-02 21:59] VITALS: BP 205/88
[2018-04-02 22:09] VITALS: BP 165/63
--- NOTE | 2018-04-02 22:16 | NUR ---
THIS RN SPOKE WITH POISON CONTROL- STATES 8HOURS FOR OBSERVATION, NARCAN IF RESP DRIVE DECREASES, IF QTC >500 GIVE MAG SULFATE..
[2018-04-02 22:20] VITALS: BP 162/82
[2018-04-02 22:20] LABS: BASO % 0.5 % (0.0-1.0); EOS # 0.3 10*3/uL (0.0-0.4); EOS % 4.3 % (1.0-4.0); HEMATOCRIT 38.6 % (42.0-52.0); HEMOGLOBIN 12.4 g/dl (14.0-18.0); LYMPH # 1.5 10*3/uL (1.3-4.4); LYMPH % 24.3 % (27.0-41.0); MEAN CELL VOLUME 83.5 fl (80.0-94.0); MEAN CORPUSCULAR HGB 26.8 pg (27.0-31.0); MEAN CORPUSCULAR HGB CONC 32.1 g/dl (33.0-37.0); MEAN PLATELET VOLUME 10.5 fl (9.6-12.3); MONO # 0.5 10*3/uL (0.1-1.0); MONO % 8.1 % (3.0-9.0); NEUT # 3.9 10*3/uL (2.3-7.9); NEUT % 62.3 % (47.0-73.0); PLATELET COUNT AUTOMATED 213 10*3/uL (130-400); RED BLOOD COUNT 4.62 10*6/uL (4.50-5.90); RED CELL DISTRI WIDTH 15.4 % (0-14.5); WHITE BLOOD COUNT 6.2 10*3/uL (4.8-10.8)
--- NOTE | 2018-04-02 22:38 | NUR ---
NUMEROUS SCABS THAT ARE INTACT AND NO DRAINAGE NOTED TO THE ABDOMEN,CHEST AND BILATERAL ARMS. NO PHOTOS TAKEN
--- NOTE | 2018-04-02 22:40 | NUR ---
MANUAL BP GIVEN TO DR DANILO RN WAS INFORMED TO HOLD THE HYDRALIZINE.
[2018-04-02 22:47] LABS: ALBUMIN 2.7 gm/dl (3.1-4.5); ALKALINE PHOSPHATASE 114 U/L (45-117); BUN 17 mg/dl (7-24); CHLORIDE 99 mmol/L (98-107); CREATININE 0.89 mg/dL (0.70-1.30); SGOT/AST 17 IU/L (3-35); SGPT/ALT 17 U/L (12-78); SODIUM 134 mmol/L (136-145)
[2018-04-02 22:48] LABS: ACETAMINOPHEN (TYLENOL) < 5.0 ug/ml (10-30); ETHYL ALCOHOL < 3.0 mg/dl (<3); TROPONIN I < 0.015 ng/ml (<0.045)
[2018-04-02 23:08] VITALS: BP 149/58
[2018-04-02 23:57] LABS: URINE AMPHETAMINES < 1000 (1000ng/ml); URINE BARBITURATES < 200 (200ng/ml); URINE BENZODIAZEPINES < 200 (200ng/ml); URINE CANNABINOIDS (THC) < 50 (50ng/ml); URINE COCAINE < 300 (300ng/ml); URINE METHADONE > 300 (300ng/ml); URINE OPIATES < 300 (300ng/ml)
[2018-04-02 23:58] LABS: URINE PHENCYCLIDINE < 25 (25ng/ml)
[2018-04-02 23:59] VITALS: BP 125/54
[2018-04-03 00:20] VITALS: BP 96/69
--- NOTE | 2018-04-03 00:20 | NUR ---
A 62, admitted to ICCU, under the services of BASSAM Mendez DO with a diagnosis of hypertensive urgency, accidental overdose. Chief complaint is accidentally took 15 methadone. Patient arrived via stretcher from ER. Monitor applied. Initial assessment completed. Vital signs taken and recorded. BASSAM MENDEZ DO notified of admission to the unit. Orders received. See assessment for past medical history, medications and allergies. Patient and/or family oriented to unit. [facility] visitation policy reviewed. Clothing/patient valuable form completed. ORN CARPENTER
--- NOTE | 2018-04-03 01:42 | NUR ---
POISON CONTROL CALLS TO CHECK ON PT CONDITION.
--- NOTE | 2018-04-03 01:45 | NUR ---
ADDENDUM: PT DOES NOT KNOW HIS HOME MEDICATIONS. STATES HE LEFT HIS LIST AT HOME. MULTIPLE UNOPEN SCABS ALL OVER BODY.
--- NOTE | 2018-04-03 02:32 | NUR ---
SLEEPING WITH EVEN, UNLABORED RESPIRATIONS. HR 40'S WHILE ASLEEP.
[2018-04-03 04:00] VITALS: BP 132/48
--- NOTE | 2018-04-03 04:44 | NUR ---
DR BOLANOS NOTIFIED THAT MED REC HAS NOT BEEN REVIEWED STATED EARLIER ABOUT PT NOT KNOWING HIS MEDICATIONS AND THAT HIS LIST IS AT HOME. WILL BE VERIFIED BY PHARMACY IN AM.
[2018-04-03 05:14] LABS: BUN 16 mg/dl (7-24); CHLORIDE 100 mmol/L (98-107); CHOLESTEROL 114 mg/dL (<200); CREATININE 0.72 mg/dL (0.70-1.30); FREE T4 0.83 ng/dl (0.76-1.46); HDL CHOLESTEROL 31 mg/dl (40-60); LDL CHOLESTEROL 44 mg/dL (9-159); PHOSPHOROUS 3.6 mg/dL (2.5-4.9); POTASSIUM 3.9 mmol/L (3.5-5.1); SODIUM 139 mmol/L (136-145); TRIGLYCERIDES 196 mg/dl (<150); VLDL CHOLESTEROL 39 mg/dL (6-40)
[2018-04-03 05:39] LABS: ACT PARTIAL THROMBO TIME 23.8 SECONDS (20.8-31.5)
[2018-04-03 05:56] LABS: BASO % 0.4 % (0.0-1.0); EOS # 0.3 10*3/uL (0.0-0.4); EOS % 4.2 % (1.0-4.0); HEMATOCRIT 36.9 % (42.0-52.0); HEMOGLOBIN 11.5 g/dl (14.0-18.0); LYMPH % 30.4 % (27.0-41.0); MEAN CELL VOLUME 85.2 fl (80.0-94.0); MEAN CORPUSCULAR HGB 26.6 pg (27.0-31.0); MEAN CORPUSCULAR HGB CONC 31.2 g/dl (33.0-37.0); MEAN PLATELET VOLUME 11.5 fl (9.6-12.3); MONO # 0.6 10*3/uL (0.1-1.0); MONO % 8.4 % (3.0-9.0); NEUT # 3.7 10*3/uL (2.3-7.9); NEUT % 56.2 % (47.0-73.0); PLATELET COUNT AUTOMATED 216 10*3/uL (130-400); RED BLOOD COUNT 4.33 10*6/uL (4.50-5.90); RED CELL DISTRI WIDTH 15.3 % (0-14.5); WHITE BLOOD COUNT 6.7 10*3/uL (4.8-10.8)
[2018-04-03 07:19] LABS: VITAMIN D, 25-HYDROXY 8.3 ng/mL (30-100)
[2018-04-03 08:00] VITALS: BP 146/54
--- NOTE | 2018-04-03 08:31 | NUR ---
PT SITTING UP IN BED EATING BREAKFAST AND TALKING WITH DR ZAMORA. HR 40-50 BUT ASYMPTOMATIC. ALERT AND ORIENTED AT THIS TIME.
[2018-04-03] MEDS ORDERED: ELIQUIS5 M1 PO (09:27)
[2018-04-03] MEDS ORDERED: GLUCOPHAGE500 M1 PO (09:29)
[2018-04-03] MEDS ORDERED: Imdur SA60 MG PO (09:31)
[2018-04-03] MEDS ORDERED: CLOPIDOGREL75 MG PO (09:37)
[2018-04-03] MEDS ORDERED: TOUJEO SOL300 UNIT/1 SQ (09:44)
--- NOTE | 2018-04-03 11:00 | NUR ---
Artificial Limb Maker in to talk to patient. Patient states lives at home alone with his girlfriend and daughter checking in on him. There are "lots" steps in the home. Physician: Dr. Abel Leung [facility]acy: [facility] Home health services: none Patient's level of ADLs: MINIMAL ASSIST Patient has working utilities: yes DME: cane Follow-up physician's appointment after d/c: will be made by the hospitalist nurse director upon discharge Does patient want to access PORTAL?: no Discharge plan discussed with patient. He lives at home alone with his daughter and girlfriend checking in on him. He is independent in his ADLs and ambulates with a cane. Discussed home health care services and he denies any home needs a this time. When medically stable he will be discharged to home. DAVID ANDINO
[2018-04-03 12:00] VITALS: BP 148/45
[2018-04-03 16:00] VITALS: BP 146/41
--- NOTE | 2018-04-03 19:36 | NUR ---
PT SITTING UP IN BED. FINISHING UP EATING AND TALKING ON TELEPHONE. HR MID 50'S.
[2018-04-03 20:00] VITALS: BP 143/50
--- NOTE | 2018-04-03 22:02 | NUR ---
PM CARE DONE. PT DENIES PAIN OR SLEEPLESSNESS AT THIS TIME. COOL CLOTH FOR FOREHEAD AND FAN PER PT REQUEST FOR COMFORT.
[2018-04-04] VITALS (8 sets, daily range): BP systolic 103–200; BP diastolic 50–82
--- NOTE | 2018-04-04 02:58 | NUR ---
PT SLEEPING. HR MID 40'S.
[2018-04-04 05:19] LABS: BUN 15 mg/dl (7-24); CHLORIDE 100 mmol/L (98-107); CREATININE 0.55 mg/dL (0.70-1.30); POTASSIUM 4.4 mmol/L (3.5-5.1); SODIUM 136 mmol/L (136-145)
[2018-04-04 05:58] LABS: BASO # 0.1 10*3/uL (0.0-0.1); BASO % 0.6 % (0.0-1.0); EOS # 0.3 10*3/uL (0.0-0.4); HEMATOCRIT 39.3 % (42.0-52.0); HEMOGLOBIN 12.5 g/dl (14.0-18.0); LYMPH # 1.7 10*3/uL (1.3-4.4); LYMPH % 20.9 % (27.0-41.0); MEAN CELL VOLUME 85.8 fl (80.0-94.0); MEAN CORPUSCULAR HGB 27.3 pg (27.0-31.0); MEAN CORPUSCULAR HGB CONC 31.8 g/dl (33.0-37.0); MEAN PLATELET VOLUME 11.1 fl (9.6-12.3); MONO # 0.6 10*3/uL (0.1-1.0); MONO % 7.4 % (3.0-9.0); NEUT # 5.5 10*3/uL (2.3-7.9); NEUT % 66.6 % (47.0-73.0); PLATELET COUNT AUTOMATED 219 10*3/uL (130-400); RED BLOOD COUNT 4.58 10*6/uL (4.50-5.90); RED CELL DISTRI WIDTH 15.3 % (0-14.5); WHITE BLOOD COUNT 8.2 10*3/uL (4.8-10.8)
--- NOTE | 2018-04-04 07:02 | NUR ---
awake and using urinal during report - pateint upset that they are holding home meds
--- NOTE | 2018-04-04 07:18 | NUR ---
Shift chart check completed.
--- NOTE | 2018-04-04 07:51 | NUR ---
DR RUIZ AWARE OF MANUAL BLOOD PRESSURE & THAT SOME HOME MEDS NEED CLARIFIED. ORDER FOR APRESOLINE RECEIVED.
--- NOTE | 2018-04-04 08:07 | NUR ---
PODIATRY RESIDENT CALLED WITH CONSULT. DR RUIZ AWARE OF SCABS/SCRATCHING HYDRALAZINE GIVEN
--- NOTE | 2018-04-04 09:00 | NUR ---
Branch Operations Coordinator in to see patient. No new needs or request at this time. He denies any home needs. When medically stable he will be discharged to home.
[2018-04-04] MEDS ORDERED: PERCOCET 10-321 EACH PO (09:42)
--- NOTE | 2018-04-04 09:46 | NUR ---
MANUAL BLOOD PRESSURES TAKEN TO SEE IF COMING DOWN. STABLE
[2018-04-04] MEDS ORDERED: LIPITOR20 MG PO (10:01)
[2018-04-04] MEDS ORDERED: 24 HOUR ALLER15.8 ML NAS (10:09)
--- NOTE | 2018-04-04 10:14 | NUR ---
MED REC AGAIN REVIEWED AFTER RECEIVING FAX FROM PATIENT'S PHARMACY - PATIENT IS UNAWARE OF MOST DOSES & NAMES. COPY PLACED ON PATIENT'S CHART. DR RUIZ AWARE.
--- NOTE | 2018-04-04 13:03 | NUR ---
DR LIVINGSTON AWARE OF BLOOD PRESSURE IMPROVMENT AND WILL NOTIFY DR MALDONADO PER HIS REQUEST WHEN WE SPOKE EARLIER. PER THE PATIENT HE STILL HAS PAIN IN THE LEGS & LOWER BACK BUT SAYS THAT IT IS ALWAYS THERE & THAT THE MEDICATION JUST TAKES THE EDGE OFF
--- NOTE | 2018-04-04 14:55 | NUR ---
METHADONE GIVEN - PATIENT ALSO ASKING ABOUT HIS LYRICA SAYING YOU DON'T REALIZE HOW MUCH IT HELPS UNTIL YOU DONT TAKE IT. DR RUIZ HERE AND MADE AWARE
--- NOTE | 2018-04-04 16:00 | NUR ---
LYRICA & METHADONE EFFECTIVE - PT DOZING OFF &ON
--- NOTE | 2018-04-04 17:43 | NUR ---
MOVED TO [facility] VIA BED WITH BELONGINGS.
--- NOTE | 2018-04-04 19:50 | NUR ---
PATIENTS REQUESTED BENADRYL FOR ITCHING, PATIENT HAS OLD SCABS ON CHEST FROM SCRATCHING. CONTACTED DR. SINCLAIR, NEW ORDERS RECEIVED.
--- NOTE | 2018-04-04 20:21 | NUR ---
24 HR chart check completed.
--- NOTE | 2018-04-04 20:32 | NUR ---
BENADRYL GIVEN FOR EXCESSIVE ITCHING TO ARMS AND CHEST. WILL REASSESS.
--- NOTE | 2018-04-04 22:00 | NUR ---
BENADRYL EFFECTIVE FOR ITCHING, PER PATIENT.
[2018-04-05] VITALS: BP 169/53
--- NOTE | 2018-04-05 06:48 | NUR ---
BENADRYL GIVEN FOR ITCHING OF CHEST AND ARMS. WILL REASSESS.
[2018-04-05 08:00] VITALS: BP 160/58
--- NOTE | 2018-04-05 09:10 | NUR ---
IN TO SEE PATIENT.
--- NOTE | 2018-04-05 09:32 | NUR ---
POISON CONTROL CALLED AT THIS TIME AND UPDATED ON PLAN OF CARE.
--- NOTE | 2018-04-05 10:08 | NUR ---
PT REQUESTED PO PERCOCET 5/325 COMBINED WITH PO OXICODONE PER PRN ORDER FOR C/O NECK AND BACK PAIN. CHRONIC PAIN PER PT. RATES PAIN 09/20. WILL MONITOR EFFECTIVENESS.
[2018-04-05 12:00] VITALS: BP 124/55
[2018-04-05] MEDS ORDERED: LOSARTAN POTAS100 M1 PO (13:33)
--- NOTE | 2018-04-05 13:55 | NUR ---
Discharge instructions reviewed with patient/family. Patient receptive and verbalizes understanding. Follow-up care arranged. Written instructions given to patient/family. AMADOU ALLISON.
== END 2018-04-05 13:55 | disposition home or self-care (01) | DRG 917 ==
LOC: ED 21:40 → EDHOLD 22:39 → ICCU 22:39 → 4E 04-04 17:34
PROVIDERS: Internal Medicine; Student in an Organized Health Care Education/Training Program; ADMIT Emergency Medicine
PROC: 0HBRXZZ Excision of Toe Nail, External Approach (ICD-10-PCS; principal; 2018-04-04)
PROC: 0HBRXZZ Excision of Toe Nail, External Approach (ICD-10-PCS; 2018-04-04)
PROC: 0HBRXZZ Excision of Toe Nail, External Approach (ICD-10-PCS; 2018-04-04)
PROC: 0HBRXZZ Excision of Toe Nail, External Approach (ICD-10-PCS; 2018-04-04)
PROC: 0HBRXZZ Excision of Toe Nail, External Approach (ICD-10-PCS; 2018-04-04)
PROC: 0HBRXZZ Excision of Toe Nail, External Approach (ICD-10-PCS; 2018-04-04)
PROC: 0HBRXZZ Excision of Toe Nail, External Approach (ICD-10-PCS; 2018-04-04)
PROC: 0HBRXZZ Excision of Toe Nail, External Approach (ICD-10-PCS; 2018-04-04)
PROC: 0HBRXZZ Excision of Toe Nail, External Approach (ICD-10-PCS; 2018-04-04)
PROC: 0HBRXZZ Excision of Toe Nail, External Approach (ICD-10-PCS; 2018-04-04)
DX: T40.3X1A Poisoning by methadone, accidental (unintentional), initial encounter (principal); E43 Unspecified severe protein-calorie malnutrition; E87.1 Hypo-osmolality and hyponatremia; I16.0 Hypertensive urgency; R41.3 Other amnesia; R00.1 Bradycardia, unspecified; D64.9 Anemia, unspecified; Z68.30 Body mass index [BMI] 30.0-30.9, adult; E11.65 Type 2 diabetes mellitus with hyperglycemia; K21.9 Gastro-esophageal reflux disease without esophagitis; M54.40 Lumbago with sciatica, unspecified side; G89.29 Other chronic pain; E78.5 Hyperlipidemia, unspecified; E11.51 Type 2 diabetes mellitus with diabetic peripheral angiopathy without gangrene; E66.3 Overweight; E55.9 Vitamin D deficiency, unspecified; J30.2 Other seasonal allergic rhinitis; G47.00 Insomnia, unspecified; R42 Dizziness and giddiness; B35.1 Tinea unguium; E11.40 Type 2 diabetes mellitus with diabetic neuropathy, unspecified; I25.10 Atherosclerotic heart disease of native coronary artery without angina pectoris; I50.9 Heart failure, unspecified; I11.0 Hypertensive heart disease with heart failure; Y92.89 Other specified places as the place of occurrence of the external cause; Z79.4 Long term (current) use of insulin; Z88.8 Allergy status to other drugs, medicaments and biological substances; Z87.891 Personal history of nicotine dependence; Z82.49 Family history of ischemic heart disease and other diseases of the circulatory system; Z79.899 Other long term (current) drug therapy; Z79.02 Long term (current) use of antithrombotics/antiplatelets

== ENCOUNTER 2018-08-03 00:48 | Inpatient (IN) | payer OTHER ==
[2018-08-03] VITALS (8 sets, daily range): BP systolic 124–162; BP diastolic 44–85
[~2018-08-03] VITALS: Ht 177.8 cm; Wt 95.3 kg
--- NOTE | ~2018-08-03 | EKG ---
[place], [place] ELECTROCARDIOGRAM REPORT NAME: LENNY ROBINS SR UNIT #: [id number] ROOM: 505 DOCTOR: MICHAEL DRAFT REPORT BIRTHDATE: [birth year] [facility] Test Date: 2018-08-03 Test Time: 01:30:53 Pat Name: LENNY ROBINS Department: Room: 505 Gender: M Polo Coach: : 1955 Requested By: GILDARDO MARTINEZ PA-C Order Number: [id number] Reading MD: Enrique Mcintyre MD Measurements Intervals [place] Rate: 53 P: 48 NM: 175 QRS: 13 QRSD: 100 T: 2 QT: 440 QTc: 414 Interpretive Statements Sinus rhythm Abnormal R-wave progression, early transition Borderline T abnormalities, inferior leads Compared to ECG 04/04/2018 07:07:19 T-wave abnormality now present Sinus bradycardia no longer present Electronically Signed On 08-03-2018 9:34:14 PDT by Enrique Mcintyre MD CM:EKGRPT:ELECTROCARDIOGRAM REPORT [id number] GILDARDO MARTINEZ PA-C EPIPHANY DRAFT REPORT GILDARDO MARTINEZ PA-C
[~2018-08-03 00:48] MED LIST changes: +24 HOUR ALLER15.8 ML NAS; +CLOPIDOGREL75 MG PO; +ELIQUIS5 M1 PO; +GLUCOPHAGE500 M1 PO; +Imdur SA60 MG PO; +LIPITOR20 MG PO; +LOSARTAN POTAS100 M1 PO; +PERCOCET 10-321 EACH PO
[2018-08-03 01:23] LABS: BASO % 0.5 % (0.0-1.0); EOS # 0.5 10*3/uL (0.0-0.4); HEMATOCRIT 31.5 % (42.0-52.0); HEMOGLOBIN 9.9 g/dl (14.0-18.0); LYMPH # 1.7 10*3/uL (1.3-4.4); LYMPH % 21.8 % (27.0-41.0); MEAN CELL VOLUME 84.5 fl (80.0-94.0); MEAN CORPUSCULAR HGB 26.5 pg (27.0-31.0); MEAN CORPUSCULAR HGB CONC 31.4 g/dl (33.0-37.0); MEAN PLATELET VOLUME 10.6 fl (9.6-12.3); MONO # 0.7 10*3/uL (0.1-1.0); MONO % 8.7 % (3.0-9.0); NEUT # 4.9 10*3/uL (2.3-7.9); NEUT % 62.5 % (47.0-73.0); PLATELET COUNT AUTOMATED 277 10*3/uL (130-400); RED BLOOD COUNT 3.73 10*6/uL (4.50-5.90); RED CELL DISTRI WIDTH 14.6 % (0-14.5); WHITE BLOOD COUNT 7.9 10*3/uL (4.8-10.8)
[2018-08-03 01:47] LABS: ALBUMIN 2.2 gm/dl (3.1-4.5); ALKALINE PHOSPHATASE 100 U/L (45-117); BUN 9 mg/dl (7-24); CHLORIDE 101 mmol/L (98-107); CREATININE 0.69 mg/dL (0.70-1.30); POTASSIUM 4.3 mmol/L (3.5-5.1); SGOT/AST 16 IU/L (3-35); SGPT/ALT 20 U/L (12-78); SODIUM 136 mmol/L (136-145); TOTAL PROTEIN 6.5 gm/dL (6.4-8.2)
[2018-08-03 01:57] LABS: TROPONIN I < 0.015 ng/ml (<0.045)
--- NOTE | 2018-08-03 02:50 | NUR ---
A 62, admitted to , under the services of BASSAM Mendez DO with a diagnosis of CHF EXACERBATION. Chief complaint is EDEMA. Patient arrived via bed from ER. Monitor applied. Initial assessment completed. Vital signs taken and recorded. BASSAM MENDEZ DO notified of admission to the unit. Orders received. See assessment for past medical history, medications and allergies. Patient and/or family oriented to unit. [facility] visitation policy reviewed. Clothing/patient valuable form completed. JAIME JORDAN
--- NOTE | 2018-08-03 03:30 | NUR ---
MED REC CANNOT BE COMPLETED AT THIS MOMENT. PT STATES BRANDYN IS BRINGING IN MED LIST IN TOMORROW SOME TIME.
--- NOTE | 2018-08-03 03:30 | NUR ---
PT NEEDS WOUND PHOTOS AT THIS TIME, PT WANTS TO WAIT UNTIL MORNING. REFUSED AT THIS TIME.
[2018-08-03 03:47] LABS: BASO % 0.4 % (0.0-1.0); EOS # 0.5 10*3/uL (0.0-0.4); EOS % 5.5 % (1.0-4.0); HEMATOCRIT 34.3 % (42.0-52.0); HEMOGLOBIN 10.7 g/dl (14.0-18.0); LYMPH # 1.8 10*3/uL (1.3-4.4); LYMPH % 20.1 % (27.0-41.0); MEAN CELL VOLUME 84.7 fl (80.0-94.0); MEAN CORPUSCULAR HGB 26.4 pg (27.0-31.0); MEAN CORPUSCULAR HGB CONC 31.2 g/dl (33.0-37.0); MONO # 0.7 10*3/uL (0.1-1.0); MONO % 8.3 % (3.0-9.0); NEUT # 5.8 10*3/uL (2.3-7.9); PLATELET COUNT AUTOMATED 301 10*3/uL (130-400); RED BLOOD COUNT 4.05 10*6/uL (4.50-5.90); RED CELL DISTRI WIDTH 14.6 % (0-14.5); WHITE BLOOD COUNT 8.9 10*3/uL (4.8-10.8)
[2018-08-03 03:59] LABS: BUN 10 mg/dl (7-24); CHLORIDE 98 mmol/L (98-107); CREATININE 0.75 mg/dL (0.70-1.30); POTASSIUM 4.3 mmol/L (3.5-5.1); SODIUM 134 mmol/L (136-145)
[2018-08-03 04:04] LABS: CHOLESTEROL 118 mg/dL (<200); FREE T4 0.95 ng/dl (0.76-1.46); HDL CHOLESTEROL 36 mg/dl (40-60); LDL CHOLESTEROL 40 mg/dL (9-159); PHOSPHOROUS 3.3 mg/dL (2.5-4.9); TRIGLYCERIDES 212 mg/dl (<150); VLDL CHOLESTEROL 42 mg/dL (6-40)
[2018-08-03 04:42] LABS: VITAMIN D, 25-HYDROXY 8.3 ng/mL (30-100)
--- NOTE | 2018-08-03 08:25 | NUR ---
24 HR chart check completed.
[2018-08-03] MEDS ORDERED: LOSARTAN POTASS50 M1 PO (10:01)
[2018-08-03] MEDS ORDERED: CARVEDILOL3.125 MG PO (10:03)
[2018-08-03] MEDS ORDERED: METHADONE HCL10 MG PO (10:07)
--- NOTE | 2018-08-03 10:10 | NUR ---
DR Erik AGUILAR HERE TO ASSESS PATIENT AND DISCUSS PLAN OF CARE
--- NOTE | 2018-08-03 12:15 | NUR ---
DR Mike ABRAHAM HERE, INFORMED OF CONSULT.
--- NOTE | 2018-08-03 13:10 | NUR ---
REQUESTED AND RECEIVED PERCOCET PER PRN ORDER FOR COMPLAINTS OF BLE PAIN RATING AN 8. CALL LIGHT WITHIN REACH. WILL MONITOR FOR EFFECTIVENESS
--- NOTE | 2018-08-03 14:48 | NUR ---
STATES MINIMAL RELIEF FROM EARLIER PAIN MEDS. MEDICATED WITH ROUTINE MEDS. CALL LIGHT WITHIN REACH. WILL MONITOR
--- NOTE | 2018-08-03 16:00 | NUR ---
EARLIER MEDS APPEAR EFFECTIVE. RESTING WITH EYES CLOSED. CALL LIGHT WITHIN REACH
--- NOTE | 2018-08-03 17:00 | NUR ---
STATES EARLIER MEDS "HELPING"
--- NOTE | 2018-08-03 20:40 | NUR ---
SITTING UP IN BED WATCHING T.V. ALERT & ORIENTED. SKIN WARM & DRY. BLOOD SUGAR 269; COVERAGE PROVIDED PER EMAR. PT. VOICES NO C/O AT THIS TIME. NO DISTRESS NOTED. CALL LIGHT WITHIN REACH.
--- NOTE | 2018-08-03 23:00 | NUR ---
PT RESTING IN BED EYES CLOSED. PT DENIES ANY NEEDS AT THIS TIME. PT CALL LIGHT IN REACH AND BED IN LOWEST POSITION/LOCKED.
[2018-08-04] VITALS: BP 152/55
--- NOTE | 2018-08-04 01:31 | NUR ---
24 HR chart check completed.
--- NOTE | 2018-08-04 05:40 | NUR ---
IV started left antecubital with #20 protective cath after 0 attempts. Site prepped with Chloroprep. Sterile dressing applied. Patient tolerated procedure well. KILEY RAZO
[2018-08-04 06:35] LABS: BASO # 0.1 10*3/uL (0.0-0.1); BASO % 0.7 % (0.0-1.0); EOS # 0.4 10*3/uL (0.0-0.4); HEMATOCRIT 36.4 % (42.0-52.0); HEMOGLOBIN 11.2 g/dl (14.0-18.0); LYMPH # 1.8 10*3/uL (1.3-4.4); LYMPH % 24.6 % (27.0-41.0); MEAN CELL VOLUME 84.8 fl (80.0-94.0); MEAN CORPUSCULAR HGB 26.1 pg (27.0-31.0); MEAN CORPUSCULAR HGB CONC 30.8 g/dl (33.0-37.0); MONO # 0.6 10*3/uL (0.1-1.0); MONO % 8.2 % (3.0-9.0); NEUT # 4.4 10*3/uL (2.3-7.9); NEUT % 60.2 % (47.0-73.0); PLATELET COUNT AUTOMATED 302 10*3/uL (130-400); RED BLOOD COUNT 4.29 10*6/uL (4.50-5.90); RED CELL DISTRI WIDTH 14.8 % (0-14.5); WHITE BLOOD COUNT 7.3 10*3/uL (4.8-10.8)
[2018-08-04 06:59] LABS: BUN 10 mg/dl (7-24); CHLORIDE 99 mmol/L (98-107); CREATININE 0.57 mg/dL (0.70-1.30); POTASSIUM 4.2 mmol/L (3.5-5.1); SODIUM 139 mmol/L (136-145)
[2018-08-04 08:00] VITALS: BP 102/62; BP 130/60
--- NOTE | 2018-08-04 08:17 | NUR ---
SHIMON MATA,LENNY Tierney [id number] Please refer to the physician's history and physical for past medical history, comorbid conditions, and allergies. Diagnosis: CHF EXACERBATION Scott Score: 16,AT RISK WOUND DESCRIPTIONS: BLE RED BLANCHABLE WITH INTACT SCABS NOTED. SKIN DRY AND WARM TO TOUCH.NO DRAINAGE NOTED. PATIENT STATES THIS STARTED ONE WEEK AGO. Surface the patient is resting on: Position Pro SKIN PREVENTION RECOMMENDATION: 1. Pressure redistribution support surface as appropriate 2. Elevate heels 3. Remove boots/TEDS every shift and reapply 4. Head of bed 30 degrees as tolerated 5. Assess nutrition and hydration 6. Manage moisture 7. Avoid the use of containment devices while in bed 8. Use absorptive products on surfaces limit layers of linens on bed 9. Turn and reposition every 1-2 hours in bed and every 1 hour in chair as tolerated 10. Weight shifts every 15 minutes while up in chair 11. Offloading with pillows or device to keep heels elevated off bed 12. Monitor skin at least every shift 13. Inspect under medical devices twice a day WOUND TREATMENT RECOMMENDATIONS: AQUAPHOR TO BLE DAILY TO DRY SKIN.
--- NOTE | 2018-08-04 09:15 | NUR ---
CMR CALLED SAID PATIENTS HR DROPPED TO 37. I WAS CONCERNED ABOUT WHAT MEDICATIONS TO GIVE HIM. I SPOKE WITH DR MAHONEY AND HE SAID TO HOLD THE COREG. WILL CONTINUE TO MONITOR. PATIENT DENIES DIZZINESS AND LIGHTHEADEDNESS. PATIENT RESTING COMFORTABLY.
--- NOTE | 2018-08-04 11:42 | NUR ---
Dr. Obrien notified of wound care recommendations.
[2018-08-04 12:00] VITALS: BP 144/60
--- NOTE | 2018-08-04 14:01 | NUR ---
Insulation Blanket Maker in to talk to patient. Patient states lives at HOME with ALONE. There are NO steps in the home. Physician: LYLE [facility]: [facility] Home health services: NONE Patient's level of ADLs: INDEPENDENT Patient has working utilities: YES DME: CANE Follow-up physician's appointment after d/c: WILL BE MADE BY HOSPITALIST NURSE DIRECTOR ON DISCHARGE Does patient want to access PORTAL?: NO Discharge plan PT LIVES AT HOME ALONE AND IS INDEPENDENT IN CARE. DENIES ANY NEEDS AT HOME. CAN BE DISCHARGED TO HOME WHEN MEDICALLY STABLE. WILL CONTINUE TO FOLLOW. WILL HAVE A RIDE HOME PER PT.. EDITH VANN
[2018-08-04 16:00] VITALS: BP 128/55
[2018-08-04 20:00] VITALS: BP 156/53
--- NOTE | 2018-08-04 20:23 | NUR ---
CALLED DR. HAMILTON REGARDING SCHEDULED RESTORIL WITH HR OF 50. ORDERED TO HOLD RESTORIL TONIGHT.
--- NOTE | 2018-08-04 21:00 | NUR ---
PT RESTING COMFORTABLY IN BED. HR 50'S PER CM. NO SIGNS OF LIGHTHEADEDNESS OR DIZZINESS. PT VOICES NO NEW NEEDS AT THIS TIME. WILL CONTINUE TO ASSESS. PT CALL LIGHT IN REACH.
[2018-08-05] VITALS: BP 129/53
--- NOTE | 2018-08-05 05:30 | NUR ---
PT STATED THAT HE DID NOT WANT BANDAGES ON HIS LEGS DUE TO THE FACT THAT THEY ARE NO LONGER "LEAKING"
[2018-08-05 06:18] LABS: BASO # 0.1 10*3/uL (0.0-0.1); BASO % 0.7 % (0.0-1.0); EOS # 0.5 10*3/uL (0.0-0.4); EOS % 7.1 % (1.0-4.0); HEMATOCRIT 35.5 % (42.0-52.0); HEMOGLOBIN 11.1 g/dl (14.0-18.0); LYMPH # 1.7 10*3/uL (1.3-4.4); LYMPH % 24.2 % (27.0-41.0); MEAN CELL VOLUME 84.1 fl (80.0-94.0); MEAN CORPUSCULAR HGB 26.3 pg (27.0-31.0); MEAN CORPUSCULAR HGB CONC 31.3 g/dl (33.0-37.0); MEAN PLATELET VOLUME 10.9 fl (9.6-12.3); MONO # 0.7 10*3/uL (0.1-1.0); MONO % 9.8 % (3.0-9.0); NEUT % 57.8 % (47.0-73.0); PLATELET COUNT AUTOMATED 309 10*3/uL (130-400); RED BLOOD COUNT 4.22 10*6/uL (4.50-5.90); RED CELL DISTRI WIDTH 14.8 % (0-14.5); WHITE BLOOD COUNT 6.9 10*3/uL (4.8-10.8)
[2018-08-05 07:02] LABS: ALBUMIN 2.3 gm/dl (3.1-4.5); BUN 16 mg/dl (7-24); CHLORIDE 96 mmol/L (98-107); CREATININE 0.72 mg/dL (0.70-1.30); POTASSIUM 4.4 mmol/L (3.5-5.1); SGOT/AST 18 IU/L (3-35); SGPT/ALT 24 U/L (12-78); SODIUM 135 mmol/L (136-145)
[2018-08-05 07:05] LABS: ALKALINE PHOSPHATASE 86 U/L (45-117); TOTAL PROTEIN 6.9 gm/dL (6.4-8.2)
[2018-08-05 07:40] VITALS: BP 138/50
--- NOTE | 2018-08-05 08:25 | NUR ---
TUBIGRIPS APPLIED TO BLE PER ORDER.
--- NOTE | 2018-08-05 08:28 | NUR ---
MEDICATED WITH PERCOCET PER PRN ORDER FOR COMPLAINTS OF BACK/LEG PAIN, RATES PAIN 8. WILL MONITOR FOR EFFECTIVENESS.
--- NOTE | 2018-08-05 09:30 | NUR ---
PT RESTING IN BED, EARLIER PERCOCET EFFECTIVE FOR BACK PAIN.
[2018-08-05 12:08] VITALS: BP 110/48
--- NOTE | 2018-08-05 12:21 | NUR ---
PT CONTINUES TO DENY NEEDS AT HOME ON DISCHARGE. WILL CONTINUE TO FOLLOW.
[2018-08-05] MEDS ORDERED: ALDACTONE25 MG PO (13:47)
[2018-08-05] MEDS ORDERED: KLOR-CON M1010 ME1 PO (13:47)
--- NOTE | 2018-08-05 14:30 | NUR ---
DISCHARGE PHOTOS TAKEN AT THIS TIME.
--- NOTE | 2018-08-05 14:32 | NUR ---
Nutrition Support Services Note: Pt is 62 year old male who presents with CHF exacerbation. His nutrition trigger was for a wound. During interview, pt stated he doesn't follow a diet at home and has an inconsistent intake throughout the day. I explained keeping a steady intake was best for controlling BG levels and asked if he had ever been educated on DM diet which he stated he hasn't. We went over what the diet entails. He didn't pay very well attention during this, with me explaining numerous times starches/breads/pastas/fruits all contained carbohydrate and when I asked him to explain back to me what a carbohydrate source example is, he said he didn't know. I repeated the diet education three times, with him still not paying attention. [employer] CPD Student Jeffy Wallace
--- NOTE | 2018-08-05 15:55 | NUR ---
Discharge instructions reviewed with patient/family. Patient receptive and verbalizes understanding. Follow-up care arranged. Written instructions given to patient/family. IV site and church supervisor removed. Pt trasnported to lobby via wheelchair. NAHUM WORTHINGTON
== END 2018-08-05 15:55 | disposition home or self-care (01) | DRG 291 ==
LOC: ED 00:48 → 5E 02:17 → EDHOLD 02:17 → 5E 02:35
PROVIDERS: Family Medicine; Internal Medicine; Physician Assistant; ADMIT Emergency Medicine
DX: I11.0 Hypertensive heart disease with heart failure (principal); E43 Unspecified severe protein-calorie malnutrition; E11.51 Type 2 diabetes mellitus with diabetic peripheral angiopathy without gangrene; I25.10 Atherosclerotic heart disease of native coronary artery without angina pectoris; I87.2 Venous insufficiency (chronic) (peripheral); I70.201 Unspecified atherosclerosis of native arteries of extremities, right leg; D64.9 Anemia, unspecified; R00.1 Bradycardia, unspecified; G89.29 Other chronic pain; E11.65 Type 2 diabetes mellitus with hyperglycemia; I50.33 Acute on chronic diastolic (congestive) heart failure; E66.01 Morbid (severe) obesity due to excess calories; K21.9 Gastro-esophageal reflux disease without esophagitis; R09.89 Other specified symptoms and signs involving the circulatory and respiratory systems; Z88.8 Allergy status to other drugs, medicaments and biological substances; Z84.89 Family history of other specified conditions; Z87.891 Personal history of nicotine dependence; Z68.30 Body mass index [BMI] 30.0-30.9, adult

== ENCOUNTER 2018-12-13 19:13 | Inpatient (IN) | payer OTHER ==
[~2018-12-13] VITALS: Ht 177.8 cm; Wt 98.2 kg
[~2018-12-13 19:13] MED LIST changes: +KLOR-CON M1010 ME1 PO
[2018-12-13 19:15] VITALS: BP 121/50
[2018-12-13 20:03] VITALS: BP 148/60
[2018-12-13 20:05] LABS: BASO # 0.1 10*3/uL (0.0-0.1); BASO % 0.3 % (0.0-1.0); EOS % 0.2 % (1.0-4.0); HEMATOCRIT 34.9 % (42.0-52.0); HEMOGLOBIN 10.8 g/dl (14.0-18.0); LYMPH # 1.5 10*3/uL (1.3-4.4); LYMPH % 8.3 % (27.0-41.0); MEAN CELL VOLUME 84.1 fl (80.0-94.0); MEAN CORPUSCULAR HGB CONC 30.9 g/dl (33.0-37.0); MEAN PLATELET VOLUME 10.9 fl (9.6-12.3); MONO # 1.5 10*3/uL (0.1-1.0); MONO % 8.2 % (3.0-9.0); NEUT % 82.4 % (47.0-73.0); PLATELET COUNT AUTOMATED 315 10*3/uL (130-400); RED BLOOD COUNT 4.15 10*6/uL (4.50-5.90); RED CELL DISTRI WIDTH 15.4 % (0-14.5); WHITE BLOOD COUNT 18.2 10*3/uL (4.8-10.8)
[2018-12-13 20:20] LABS: ALKALINE PHOSPHATASE 89 U/L (45-117); BUN 26 mg/dl (7-24); CHLORIDE 101 mmol/L (98-107); CREATININE 0.98 mg/dL (0.70-1.30); POTASSIUM 3.6 mmol/L (3.5-5.1); SGOT/AST 10 IU/L (3-35); SGPT/ALT 13 U/L (12-78); SODIUM 135 mmol/L (136-145); TOTAL PROTEIN 6.8 gm/dL (6.4-8.2)
--- NOTE | 2018-12-13 20:49 | NUR ---
PT IN CT SCAN AT THIS TIME.---TAHIR JORDAN RN
[2018-12-14 00:06] VITALS: BP 147/62
[2018-12-14 01:00] VITALS: BP 170/78
--- NOTE | 2018-12-14 01:35 | NUR ---
MORPHINE GIVEN PER PT REQUEST FOR 10/10 PAIN TO BUTTOCK. CALL LIGHT IN REACH.
--- NOTE | 2018-12-14 01:47 | NUR ---
MORPHINE GIVEN FOR 10/10 PAIN TO CELLULITIS AREA ON RT BUTTOCK. CALL LIGHT IN REACH
--- NOTE | 2018-12-14 01:48 | NUR ---
Time: 99 A 63 year old MALE admitted to 5E under services of ANA RICHARDSON DO. Pt. arrived via stretcher from ER. Chief complaint: CELLULITIS OF PERINEUM. JONO MARQUEZ
--- NOTE | 2018-12-14 03:30 | NUR ---
PATIENT STATES MEDICATION "HELPS A LITTLE"
--- NOTE | 2018-12-14 04:15 | NUR ---
MORPHINE REQUESTED AND GIVEN FOR 9/10 PAIN TO ALYSSA AREA/BUTTOCK. CALL LIGHT IN REACH.
[2018-12-14 06:29] LABS: BASO # 0.1 10*3/uL (0.0-0.1); BASO % 0.3 % (0.0-1.0); EOS # 0.1 10*3/uL (0.0-0.4); EOS % 0.8 % (1.0-4.0); HEMATOCRIT 34.4 % (42.0-52.0); HEMOGLOBIN 10.8 g/dl (14.0-18.0); LYMPH % 6.3 % (27.0-41.0); MEAN CELL VOLUME 83.1 fl (80.0-94.0); MEAN CORPUSCULAR HGB 26.1 pg (27.0-31.0); MEAN CORPUSCULAR HGB CONC 31.4 g/dl (33.0-37.0); MEAN PLATELET VOLUME 11.1 fl (9.6-12.3); MONO # 1.3 10*3/uL (0.1-1.0); MONO % 8.5 % (3.0-9.0); NEUT % 83.3 % (47.0-73.0); PLATELET COUNT AUTOMATED 294 10*3/uL (130-400); RED BLOOD COUNT 4.14 10*6/uL (4.50-5.90); RED CELL DISTRI WIDTH 15.2 % (0-14.5); WHITE BLOOD COUNT 15.6 10*3/uL (4.8-10.8)
[2018-12-14 06:57] LABS: BUN 18 mg/dl (7-24); CHLORIDE 103 mmol/L (98-107); CREATININE 0.81 mg/dL (0.70-1.30); PHOSPHOROUS 1.9 mg/dL (2.5-4.9); POTASSIUM 3.3 mmol/L (3.5-5.1); SODIUM 136 mmol/L (136-145)
--- NOTE | 2018-12-14 07:58 | NUR ---
MORPHINE 2MG IV GIVEN PER PATIENT REQUEST FOR PERINEUM AND RIGHT BUTTOCKS PAIN.
[2018-12-14 08:00] VITALS: BP 146/60
--- NOTE | 2018-12-14 10:00 | NUR ---
PATIENT SLEEPING. NO SIGNS OF DISTRESS. MORPHINE EFFECTIVE.
[2018-12-14] MEDS ORDERED: TEMAZEPAM30 MG PO (10:43)
[2018-12-14] MEDS ORDERED: BASAG SOL SC (10:43)
[2018-12-14 12:00] VITALS: BP 146/54
--- NOTE | 2018-12-14 12:00 | NUR ---
MORPHINE 2MG. GIVEN FOR BACK PAIN CAUSED BY LAYING IN BED. PATIENT STATES THAT HE IS UNABLE TO SIT UP BECAUSE OF THE PAIN TO HIS PERINEUM AREA AND BUTTOCKS.
--- NOTE | 2018-12-14 13:00 | NUR ---
PATIENT SLEEPING. NO SIGNS OF DISTRESS. MORPHINE EFFECTIVE.
[2018-12-14 16:00] VITALS: BP 145/63
--- NOTE | 2018-12-14 16:06 | NUR ---
Medicated for c/o pain 11/20 to back.
--- NOTE | 2018-12-14 17:08 | NUR ---
Pain med effective to reduce pain to 8/10.
[2018-12-14 20:00] VITALS: BP 120/45
--- NOTE | 2018-12-14 20:27 | NUR ---
Neurological: AAOX3 Respiratory: NONLABORED, ROOM AIR Breath sounds: CLEAR T/O Cough: NONE NOTED Cardiovascular: HRR, DENIES CP/PRESSURE, +2 EDEMA, PPP Gastrointestinal: NORMOACTIVE X4 QUADS, DENIES N/V/D/C, SOFT, NONTENDER, NONDISTENDED Genito/Urinary: DENIES DYSURIA Musculoskeketal: AMBULATORY W/ CANE. MULTIPLE WOUNDS/CELLULITIS PATIENT IS RESTING IN BED WITH NO S/S OF DISTRESS NOTED. PATIENT C/O PAIN TO LOWER HALF OF BODY RATING AN 8/10. PRN MORPHINE PROVIDED AND PATIENT TOLERATED WELL. BED IS LOW, LOCKED, AND CALL LIGHT IS WITHIN REACH. WILL CONTINUE TO MONITOR ESTEFANY THORPE
[2018-12-15] VITALS: BP 126/62
--- NOTE | 2018-12-15 03:00 | NUR ---
PATIENT APPEARS TO BE SLEEPING WITH EASY AND REGULAR RESPERS ON ROOM AIR. CALL LIGHT IS WITHIN REACH.
[2018-12-15 07:21] LABS: BASO # 0.1 10*3/uL (0.0-0.1); BASO % 0.3 % (0.0-1.0); EOS # 0.4 10*3/uL (0.0-0.4); EOS % 2.8 % (1.0-4.0); HEMATOCRIT 34.8 % (42.0-52.0); HEMOGLOBIN 10.5 g/dl (14.0-18.0); LYMPH # 1.4 10*3/uL (1.3-4.4); LYMPH % 9.3 % (27.0-41.0); MEAN CELL VOLUME 85.5 fl (80.0-94.0); MEAN CORPUSCULAR HGB 25.8 pg (27.0-31.0); MEAN CORPUSCULAR HGB CONC 30.2 g/dl (33.0-37.0); MONO # 1.1 10*3/uL (0.1-1.0); MONO % 7.1 % (3.0-9.0); NEUT # 12.1 10*3/uL (2.3-7.9); PLATELET COUNT AUTOMATED 326 10*3/uL (130-400); RED BLOOD COUNT 4.07 10*6/uL (4.50-5.90); RED CELL DISTRI WIDTH 15.1 % (0-14.5); WHITE BLOOD COUNT 15.1 10*3/uL (4.8-10.8)
[2018-12-15 07:45] LABS: ALBUMIN 1.7 gm/dl (3.1-4.5); ALKALINE PHOSPHATASE 95 U/L (45-117); BUN 18 mg/dl (7-24); CHLORIDE 100 mmol/L (98-107); CREATININE 0.93 mg/dL (0.70-1.30); POTASSIUM 3.1 mmol/L (3.5-5.1); SGOT/AST 19 IU/L (3-35); SGPT/ALT 15 U/L (12-78); SODIUM 136 mmol/L (136-145); TOTAL PROTEIN 6.6 gm/dL (6.4-8.2)
[2018-12-15 08:00] VITALS: BP 94/50
--- NOTE | 2018-12-15 10:19 | NUR ---
SHIMON MATA,LENNY Tierney [id number] Please refer to the physician's history and physical for past medical history, comorbid conditions, and allergies. Diagnosis: CELLULITIS OF PERINEUM, CELLULITIS, GLUTEAL Scott Score: 16,AT RISK WOUND DESCRIPTIONS: Wound Number: 1 Location of the wound: left buttocks Type of wound: stage 2 Thickness: Partial Size: 1.5cm x 1.3cm x 0.1cm Tunneling: none Undermining: none Sinus Tract: none Presence of Exudate: Serosanguineous Amount: Light Color: Red Odor: None Periwound Skin Appearance: Normal Wound edges: approximated Pain (associated with wound): none at time of assessment How does patient state this happened? pt stated this started about 2 weeks ago Wound Number:2 Left gavin intact scab noted. No drainage noted at time of assessment. Wound Number:3 Left hip intact scab noted. No drainage noted at time of assessment. Wound Number: 4 Location of the wound: right plantar aspect of foot Type of wound: unstageable Thickness: Full Size: 2.2cm x 2.5cm x <0.1cm Tunneling: none Undermining: none Sinus Tract: none Presence of Exudate: none Amount: None Color: Brown Odor: None Periwound Skin Appearance: Normal Wound edges: approximated Pain (associated with wound): none at time of assessment How does patient state this happened? pt unsure when this started Wound Number: 5 Location of the wound: right buttocks induration extends to front of testicles and right side of groin Type of wound: abscess Size: 21.0cm x 9.0cm x <0.1cm Tunneling: none Undermining: none Sinus Tract: none Presence of Exudate: none Amount: None Color: Purple, dark red Odor: None Periwound Skin Appearance: Firmness, erythema, warmth Wound edges: closed Pain (associated with wound): very tender to touch How does patient state this happened? pt stated this started about 2 weeks ago Surface the patient is resting on: Isoflex SKIN PREVENTION RECOMMENDATION: 1. Pressure redistribution support surface as appropriate 2. Elevate heels 3. Remove boots/TEDS every shift and reapply 4. Head of bed 30 degrees as tolerated 5. Assess nutrition and hydration 6. Manage moisture 7. Avoid the use of containment devices while in bed 8. Use absorptive products on surfaces limit layers of linens on bed 9. Turn and reposition every 1-2 hours in bed and every 1 hour in chair as tolerated 10. Weight shifts every 15 minutes while up in chair 11. Offloading with pillows or device to keep heels elevated off bed 12. Monitor skin at least every shift 13. Inspect under medical devices twice a day WOUND TREATMENT RECOMMENDATIONS: Consult Dr. Teixeira for area to right buttocks which extends to right testicle and groin. Wheelchair cushion when oob. Heel raiser pro boots to bilateral feet while in bed. Venous and arterial stuides to bilateral lower extremities due to non-healing wound. Consult podiatry for possible debridement of right plantar aspect of foot if studies allow. Stage 2 guidelines: Cleanse left buttocks with nss and apply sureprep around the wound hydrogel to wound bed and cover with optifoam gentle every 2 days and prn for soiling.
--- NOTE | 2018-12-15 10:45 | NUR ---
Dr. Teixeira notified of consult for cellulitis of testicle and perineum. No new orders physician to follow up at bedside.
[2018-12-15 12:00] VITALS: BP 91/63
--- NOTE | 2018-12-15 13:56 | NUR ---
Maintenance Pipefitter in to talk to patient. Patient states lives at HOME with GRANDSON. There are NO steps in the home. Physician: LYLE [facility] Home health services: NONE Patient's level of ADLs: MINIMAL ASSIST Patient has working utilities: YES DME: CANE, WALKER, WHEEL CHAIR Follow-up physician's appointment after d/c: WILL BE MADE BY HOSPITALIST NURSE DIRECTOR ON DISCHARGE Does patient want to access PORTAL?: NO Discharge plan PT LIVES AT HOME WITH GRANDSON. STATES DAUGHTER AND SON ARE ALSO AROUND DAILY TO HELP HIM. DENIES HE WILL HAVE ANY NEEDS ON DISCHARGE AT THIS TIME. HIS PLAN IS TO RETURN HOME WHEN MEDICALLY STABLE. STATES HE DOES HAVE A RIDE HOME. . EDITH VANN
--- NOTE | 2018-12-15 14:54 | NUR ---
Spoke with Podiatry resident regarding consult for wound on right foot.
[2018-12-15 16:00] VITALS: BP 152/70
--- NOTE | 2018-12-15 18:15 | NUR ---
Notified Dr. Villalobos that patient stated "it hurts to pee, I've been trying all day, but I can't." Urinal was emptied for 300ml of dark urine. Patient stated that's all he's gone since [address] Villalobos bladder scan patient.
--- NOTE | 2018-12-15 19:10 | NUR ---
Patient was bladder scanned for 231ml. Shift report given, nursing to continue to monitor.
[2018-12-15 20:00] VITALS: BP 144/58
--- NOTE | 2018-12-15 22:35 | NUR ---
PT SLEEPING; SCHEDULED PERCOCET AND METHODONE EFFECTIVE FOR PAIN. SNORING RESPIRATIONS EASY AND REGULAR ON ROOM AIR. CALL LIGHT WITHIN REACH.
[2018-12-16] VITALS: BP 141/61
[2018-12-16 08:00] VITALS: BP 107/44
--- NOTE | 2018-12-16 08:34 | NUR ---
Dr. Villalobos notified of wound care recommendations.
[2018-12-16 12:00] VITALS: BP 110/50
--- NOTE | 2018-12-16 12:43 | NUR ---
PT CONTINUES TO DENY NEEDS ON DISCHARGE. WILL CONTINUE TO FOLLOW.
[2018-12-16 16:00] VITALS: BP 150/76
[2018-12-16 20:00] VITALS: BP 117/53
--- NOTE | 2018-12-16 20:04 | NUR ---
PATIENT COMPLAINED OF PAIN RATED 9/10. MORPHINE GIVEN PER PATIENT REQUEST. WILL ASSESS EFFECTIVENESS.
--- NOTE | 2018-12-16 21:00 | NUR ---
MORPHINE SLIGHTLY EFFECTIVE PER PATIENT.
[2018-12-17] VITALS (9 sets, daily range): BP systolic 90–142; BP diastolic 43–86
--- NOTE | 2018-12-17 01:02 | NUR ---
24 HR chart check completed.
--- NOTE | 2018-12-17 05:45 | NUR ---
Dr. Obrien informed about patient complaining about increase pain towards his buttocks and groin. Patient has diffculty turning and repositioning self in bed due to increase in pain.
[2018-12-17 06:31] LABS: BASO # 0.1 10*3/uL (0.0-0.1); BASO % 0.3 % (0.0-1.0); EOS # 0.4 10*3/uL (0.0-0.4); EOS % 2.6 % (1.0-4.0); HEMATOCRIT 30.2 % (42.0-52.0); HEMOGLOBIN 8.9 g/dl (14.0-18.0); LYMPH # 1.5 10*3/uL (1.3-4.4); LYMPH % 9.2 % (27.0-41.0); MEAN CELL VOLUME 84.8 fl (80.0-94.0); MEAN CORPUSCULAR HGB CONC 29.5 g/dl (33.0-37.0); MEAN PLATELET VOLUME 10.8 fl (9.6-12.3); MONO # 1.4 10*3/uL (0.1-1.0); MONO % 8.5 % (3.0-9.0); NEUT # 12.8 10*3/uL (2.3-7.9); NEUT % 78.8 % (47.0-73.0); PLATELET COUNT AUTOMATED 339 10*3/uL (130-400); RED BLOOD COUNT 3.56 10*6/uL (4.50-5.90); RED CELL DISTRI WIDTH 15.3 % (0-14.5); WHITE BLOOD COUNT 16.3 10*3/uL (4.8-10.8)
[2018-12-17 06:45] LABS: ALBUMIN 1.5 gm/dl (3.1-4.5); ALKALINE PHOSPHATASE 102 U/L (45-117); BUN 21 mg/dl (7-24); CHLORIDE 107 mmol/L (98-107); CREATININE 1.37 mg/dL (0.70-1.30); SGOT/AST 15 IU/L (3-35); SGPT/ALT 15 U/L (12-78); SODIUM 139 mmol/L (136-145); TOTAL PROTEIN 6.1 gm/dL (6.4-8.2)
[2018-12-17 06:57] LABS: POTASSIUM 4.2 mmol/L (3.5-5.1)
--- NOTE | 2018-12-17 08:38 | NUR ---
Awake and alert. Perianal woound assessment reveals sheer to area. testicles suspended w/ sheet to lessen contact. Doudhnut ring ordered for comfort. dr. Goodwin in to [facility].
--- NOTE | 2018-12-17 09:30 | NUR ---
PER DR BELTRAN PT IS AGREEING TO SNF STAY ON DISCHARGE. WENT TO TALK TO PT ABOUT SNF AND GIVE A LIST OF FACILITIES IN AREA. PT STATES I DON'T WANT TO GO ANYWHERE I WANT TO GO HOME. I GET ALONG JUST FINE AT HOME. EXPLAINED THAT HE WAS GOING TO BE NON WEIGHT BEARING ON RIGHT FOOT AT HOME AND HE STATES I HAVE A WALKER AND A WHEELCHAIR AT HOME. IF I NEED ANTIBIOTICS I WILL COME BACK TO HOSPITAL FOR THEM.
--- NOTE | 2018-12-17 09:38 | NUR ---
Occupational therapy orders received and OT evaluation completed in full on floor five. Per OT evaluation, patient precautions include fall risk, cane use, IV line, and R LE NWB. Per patient, wound care told him he is NWB R LE but can heel walk, "can't walk on my toes." OT/PT will seek further clarification prior to treatment. Per OT eval, OT recommends SNF. If refused, home with SN, OT, and PT. Patient complexity is moderate, [id number]. Thank you. Kinga Vides, OTR/L
--- NOTE | 2018-12-17 09:42 | NUR ---
PHYSICAL THERAPY Physical therapy evaluation completed, 5E. Full details to follow. Moderate complexity determined after evaluation/chart review,90060. PT to work on strength, gait, transfers, balance and safety. Recommending SNF at discharge. Thank you! Lucila Forrest, PT, DPT
--- NOTE | 2018-12-17 13:04 | NUR ---
1000 Dr. Teixeira in to evaulate. Evaulated perineal abcess and discussed surgical option with pt. 1200 Pt. to OR via bed. Family present at bedside.
--- NOTE | 2018-12-17 14:10 | NUR ---
PT IS NOW HAVING AN I&D OF GROIN TODAY. WILL REVISIT PT AND DISCUSS SNF STAY AFTER SURGERY WITH PT.
--- NOTE | 2018-12-17 14:36 | NUR ---
Returned from OR stable condition. Family in room . Update given.
--- NOTE | 2018-12-17 17:17 | NUR ---
Pad reinforced moderate bloody drainage. Medicated for c/o pain 11/20.
--- NOTE | 2018-12-17 17:22 | NUR ---
Dozing , awakens easily , when asked if pain was effective, moaned and then closed eyes.
--- NOTE | 2018-12-17 20:10 | NUR ---
AWAKE & ALERT SITTING UP AT BEDSIDE EATING. HEP LOCK INTACT TO LEFT ANTECUBITAL; SITE ASYMPTOMATIC. PT. VOICES NO C/O AT THIS TIME. NO DISTRESS NOTED. CALL LIGHT WITHIN REACH.
--- NOTE | 2018-12-17 22:07 | NUR ---
MEDICATED WITH MS SLOW IV PUSH FOR C/O GROIN/BUTTOCK PAIN RATED A 9/10.
[2018-12-18] VITALS: BP 143/64
--- NOTE | 2018-12-18 00:30 | NUR ---
PATIENT SLEEPING.. RESPIRATIONS EASY ADN REGULAR ON ROOM AIR. NO S/S DISTRESS. IV ABX INFUSING WITHOUT INCIDENT. SIDE RAILS UP X1. BED IN LOWEST, LOCKED POS, CALL LIGHT WITHIN REACH.
[2018-12-18 08:00] VITALS: BP 149/88
[2018-12-18 09:26] LABS: BASO # 0.1 10*3/uL (0.0-0.1); BASO % 0.5 % (0.0-1.0); EOS # 0.7 10*3/uL (0.0-0.4); EOS % 5.2 % (1.0-4.0); HEMATOCRIT 30.8 % (42.0-52.0); HEMOGLOBIN 9.2 g/dl (14.0-18.0); LYMPH # 1.2 10*3/uL (1.3-4.4); LYMPH % 8.6 % (27.0-41.0); MEAN CELL VOLUME 86.8 fl (80.0-94.0); MEAN CORPUSCULAR HGB 25.9 pg (27.0-31.0); MEAN CORPUSCULAR HGB CONC 29.9 g/dl (33.0-37.0); MEAN PLATELET VOLUME 9.9 fl (9.6-12.3); MONO # 1.3 10*3/uL (0.1-1.0); MONO % 9.4 % (3.0-9.0); NEUT # 10.4 10*3/uL (2.3-7.9); NEUT % 75.3 % (47.0-73.0); PLATELET COUNT AUTOMATED 382 10*3/uL (130-400); RED BLOOD COUNT 3.55 10*6/uL (4.50-5.90); RED CELL DISTRI WIDTH 15.4 % (0-14.5); WHITE BLOOD COUNT 13.8 10*3/uL (4.8-10.8)
[2018-12-18 09:42] LABS: ALBUMIN 1.5 gm/dl (3.1-4.5); ALKALINE PHOSPHATASE 121 U/L (45-117); BUN 25 mg/dl (7-24); CHLORIDE 109 mmol/L (98-107); CREATININE 1.28 mg/dL (0.70-1.30); POTASSIUM 4.3 mmol/L (3.5-5.1); SGOT/AST 17 IU/L (3-35); SGPT/ALT 19 U/L (12-78); SODIUM 141 mmol/L (136-145); TOTAL PROTEIN 6.4 gm/dL (6.4-8.2)
--- NOTE | 2018-12-18 11:21 | NUR ---
TALKED WITH PT ABOUT POSSIBLE SKILLED STAY SINCE HE HAD SURGERY, PT STATES I WANT TO GO HOME. DISCUSSED THE NEED FOR DRESSING CHANGES AND POSSIBLITY OF IV ANTIBIOTICS, HE STATES I WILL COME BACK IN HERE FOR ANTIBIOTICS I HAVE DONE IT BEFORE AND MY FAMILY CAN HELP WITH DRESSING CHANGES. DID AGREE TO HOME HEALTH SERVICES. WILL CONTINUE TO FOLLOW.
--- NOTE | 2018-12-18 11:30 | NUR ---
OT NOTE Pt was seen this A.M. 1:1 for 15 minute OT session. Upon arrival pt was supine in bed. Pt idenitified by name and and had complaints of "9.5/10 pain all over." Pt transferred supine to sit EOB with SBA. While sitting EOB pt was questioned on weight bearing status and without any prompts pt stated "I am to place no weight on my R foot." Pt completed sit to stand transfer from EOB with Vivien and use of w/w. Pt required constant verbal prompts for maintaining NWB to RLE. Functional mobility was then completed to the bathroom and back with CGA and use of w/w while being non compliant with weight bearing status. Educated pt on importance and pt continued to be placing full weight through the foot resulting in ending session and returning to bed. Pt was left supine in bed with call light in hand, tray table in place, and bed alarm activated for safety. Continue with POC as able. CHENCHO Sanchez/Gibson
--- NOTE | 2018-12-18 11:42 | NUR ---
PHYSICAL THERAPY Patient presented to therapy in supine wit hhead of bed elevated and report of NWB on R LE. Patient reports 9.5/10 pain level although he doesn't appear to be in that level of pain. Patient was identified by name and on wristband. Patient gives informed consent for treatment. Patient was educated by this NEUROPATHOLOGIST on maintaining of NWB on R LE with use of Wh Walker. Patient does not want to use Wh Walker , but says he will if the doctor has recommended it's use. Patient transfers supine to sitting at EOB with SBA. Patient sat on EOB unassisted. Patient still complains of having to use Wh Walker. In response, this NEUROPATHOLOGIST recommended just performing standing tolerance at bedside, instead of ambulation. Patient says again, that he will use the walker if the doctor recommended it. Patient says the doctor knows best. This NEUROPATHOLOGIST agreed with patient. Patient sit to stand from EOB with CGA X 1 with verbal cues for pushing off of bed with UEs. Patient was educated in proper technique for maintaining NWB STATUS ON R LE with Wh Walker again. Patient ambulated with Wh Walker and CGA X 1 for 50' x 1 with 50% of AMBULATION distance patient was compliant with NWB on R LE. Patient was NON- COMPLIANT with NWB STATUS 50% of the ambulation distance. Patient required maximum verbal cues for proper technique for maintaining NWB on R LE during ambualation. Patient transferred back to supine to supine with SBA. Patient was left in supine with head of bed elevated, call light within reach, and bed alarm activated. Patient was 1:1 with this NEUROPATHOLOGIST for 20 minutes total. REBECCA LYLES NEUROPATHOLOGIST
[2018-12-18 12:00] VITALS: BP 151/61
--- NOTE | 2018-12-18 15:14 | NUR ---
PT REQUESTED AND GIVEN MORPHINE FOR C/O BUTTOCKS PAIN. PT RATES PAIN 8/10 WILL MONITOR
[2018-12-18 16:00] VITALS: BP 132/87
--- NOTE | 2018-12-18 19:43 | NUR ---
PATIENT COMPLAINS OF 9/10 ABD AND LEG PAIN. MEDICATED PER ORDER. WILL CONTINUE TO MONITOR FOR RELIEF. VOICES NO OTHER CONCERNS AT THIS TIME. RESTING IN CHAIR. CALL LIGHT WITHIN REACH
[2018-12-18 20:00] VITALS: BP 139/58
--- NOTE | 2018-12-18 20:30 | NUR ---
MORPHINE EFFECTIVE PER PT
--- NOTE | 2018-12-18 22:00 | NUR ---
BLOOD SUGAR 158
--- NOTE | 2018-12-18 22:00 | NUR ---
ALL DRESSINGS CHANGED PER PATIENTS REQUEST. TOLERATED WELL. RESTING IN CHAIR. CALL LIGHT WITHIN REACH
[2018-12-19] VITALS: BP 147/66
--- NOTE | 2018-12-19 01:53 | NUR ---
Patient resting quietly with no c/o discomfort. Respirations easy and regular. Vital signs stable. No overt distress. CALL LIGHT WITHIN REACH HISSOM,NAKUL
--- NOTE | 2018-12-19 03:07 | NUR ---
24 HR chart check completed.
--- NOTE | 2018-12-19 04:01 | NUR ---
Follow up with Dr. Teixeira in wound care clinic on 12/23/18 at 8:00am, call [phone] with any concerns
[2018-12-19 06:22] LABS: BASO % 0.4 % (0.0-1.0); EOS # 0.8 10*3/uL (0.0-0.4); EOS % 7.3 % (1.0-4.0); HEMATOCRIT 30.9 % (42.0-52.0); HEMOGLOBIN 9.2 g/dl (14.0-18.0); LYMPH # 1.4 10*3/uL (1.3-4.4); LYMPH % 12.5 % (27.0-41.0); MEAN CELL VOLUME 86.1 fl (80.0-94.0); MEAN CORPUSCULAR HGB 25.6 pg (27.0-31.0); MEAN CORPUSCULAR HGB CONC 29.8 g/dl (33.0-37.0); MEAN PLATELET VOLUME 9.8 fl (9.6-12.3); MONO # 1.1 10*3/uL (0.1-1.0); MONO % 10.2 % (3.0-9.0); NEUT # 7.4 10*3/uL (2.3-7.9); NEUT % 67.9 % (47.0-73.0); PLATELET COUNT AUTOMATED 441 10*3/uL (130-400); RED BLOOD COUNT 3.59 10*6/uL (4.50-5.90); RED CELL DISTRI WIDTH 15.4 % (0-14.5); WHITE BLOOD COUNT 10.9 10*3/uL (4.8-10.8)
[2018-12-19 06:32] LABS: BUN 20 mg/dl (7-24); CHLORIDE 110 mmol/L (98-107); CREATININE 1.03 mg/dL (0.70-1.30); POTASSIUM 4.2 mmol/L (3.5-5.1); SODIUM 144 mmol/L (136-145)
[2018-12-19 08:00] VITALS: BP 133/48
--- NOTE | 2018-12-19 08:45 | NUR ---
PHYSICAL THERAPY Patient seen this am 1:1 for therapy visit and was sitting up in bedside chair upon therapist arrival. Patient identified by name / and reports R sided Groin pain upon standing activities. Patient however unable to rate pain on 0-10 scale and transfers sit to stand from low chair surface with MIN A. Patient ambulates with use of st cane, CGA, demonstrating "heel only" WB on R LE and when questioned regarding WB status as NWB per physician order, patient became agitated stating "this is how I do it". Patient educated on importance of following safe WB precautions to aid in R foot wound healing, but proceeded with "heel only" gait, 25'x 2 to bathroom. Patient returned to bedside chair with mild fatigue and remained with call light, tray table and telephone. Will continue per POC as tolerated, total treatment time 15 minutes. Rancho Schaeffer, VACUUM TECHNICIAN
--- NOTE | 2018-12-19 09:20 | NUR ---
OT NOTE Pt was seen this A.M. 1:1 for 15 minute OT session. Upon arrival pt was sitting upright in the recliner. Pt identified by name and and had complaints of R sided groin pain which he did not rate on 0-10 pain scale. Sit to stand completed from chair level with CGA for safety and use of straight cane for UE support due to pt declining w/w use. Pt was able to verbalize that he was non weight bearing to RLE however stated, "I will put weight through my heel only but I will not be able to do non weight bearing. and I am not using the walker." Functional mobility completed into the bathroom with CGA and use of straight cane while being non compliant with weight bearing status even when provided with verbal instructions. Pt transferred on/off standard commode with Vivien due to low surface area and was again eduated on non weight bearing technique for toilet transfers and pt was non compliant. Pt then stood sink side while washing his hands with CGA, pt had one lOB that occured backwards that required Vivien to correct. Pt was left sitting upright in the recliner with call light in hand, tray table in place, and phone in reach. Continue with POC as able. CHENCHO Sanchez/Gibson
[2018-12-19] MEDS ORDERED: AUGMENTIN 875-875 MG PO (09:55)
--- NOTE | 2018-12-19 11:10 | NUR ---
PT STATES HE DOES NOT WANT DISCHARGE PHOTOS TAKEN D/T HIS PAIN LEVEL.
[2018-12-19 12:00] VITALS: BP 135/50
--- NOTE | 2018-12-19 12:25 | NUR ---
REFERRAL FAXED TO [facility].
--- NOTE | 2018-12-19 13:27 | NUR ---
Discharge instructions reviewed with patient/family. Patient receptive and verbalizes understanding. Follow-up care arranged. Written instructions given to patient/family. DEVYN LOPEZ
--- NOTE | 2018-12-19 15:26 | NUR ---
PHYSICAL THERAPY CO-SIGN I approve of the Physical Therapy notes written above. Elissa Combs PT
--- NOTE | 2018-12-23 07:57 | NUR ---
OCCUPATIONAL THERAPY CO-SIGN I approve of the Occupational Therapy notes written above. SINGH ARCINIEGA OTR/Gibson
== END 2018-12-19 13:27 | disposition home health service (06) | DRG 383 ==
LOC: ED 19:13 → EDHOLD 23:13 → 5E 23:13
PROVIDERS: Emergency Medicine; Internal Medicine; Physician Assistant; Student in an Organized Health Care Education/Training Program; ADMIT Family Medicine
PROC: 0HBRXZZ Excision of Toe Nail, External Approach (ICD-10-PCS; principal; 2018-12-16)
PROC: 0HBRXZZ Excision of Toe Nail, External Approach (ICD-10-PCS; 2018-12-16)
PROC: 0HBRXZZ Excision of Toe Nail, External Approach (ICD-10-PCS; 2018-12-16)
PROC: 0HBRXZZ Excision of Toe Nail, External Approach (ICD-10-PCS; 2018-12-16)
PROC: 0HBRXZZ Excision of Toe Nail, External Approach (ICD-10-PCS; 2018-12-16)
PROC: 0HBRXZZ Excision of Toe Nail, External Approach (ICD-10-PCS; 2018-12-16)
PROC: 0HBRXZZ Excision of Toe Nail, External Approach (ICD-10-PCS; 2018-12-16)
PROC: 0HBRXZZ Excision of Toe Nail, External Approach (ICD-10-PCS; 2018-12-16)
PROC: 0HBRXZZ Excision of Toe Nail, External Approach (ICD-10-PCS; 2018-12-16)
PROC: 0HBRXZZ Excision of Toe Nail, External Approach (ICD-10-PCS; 2018-12-16)
PROC: 0H99XZZ Drainage of Perineum Skin, External Approach (ICD-10-PCS; 2018-12-17)
DX: L03.315 Cellulitis of perineum (principal); L03.317 Cellulitis of buttock; K61.0 Anal abscess; R60.0 Localized edema; D72.829 Elevated white blood cell count, unspecified; D64.9 Anemia, unspecified; E87.1 Hypo-osmolality and hyponatremia; E43 Unspecified severe protein-calorie malnutrition; E66.3 Overweight; K21.9 Gastro-esophageal reflux disease without esophagitis; M54.9 Dorsalgia, unspecified; G89.29 Other chronic pain; E78.5 Hyperlipidemia, unspecified; I11.0 Hypertensive heart disease with heart failure; I87.2 Venous insufficiency (chronic) (peripheral); B35.1 Tinea unguium; E11.51 Type 2 diabetes mellitus with diabetic peripheral angiopathy without gangrene; E55.9 Vitamin D deficiency, unspecified; B95.62 Methicillin resistant Staphylococcus aureus infection as the cause of diseases classified elsewhere; E11.42 Type 2 diabetes mellitus with diabetic polyneuropathy; R42 Dizziness and giddiness; G47.00 Insomnia, unspecified; I25.10 Atherosclerotic heart disease of native coronary artery without angina pectoris; L02.215 Cutaneous abscess of perineum; E11.65 Type 2 diabetes mellitus with hyperglycemia; I50.32 Chronic diastolic (congestive) heart failure; R59.9 Enlarged lymph nodes, unspecified; Z79.4 Long term (current) use of insulin; Z88.8 Allergy status to other drugs, medicaments and biological substances; Z87.891 Personal history of nicotine dependence; Z84.89 Family history of other specified conditions; Z79.899 Other long term (current) drug therapy; Z79.02 Long term (current) use of antithrombotics/antiplatelets; Z68.28 Body mass index [BMI] 28.0-28.9, adult

== ENCOUNTER 2019-01-14 08:13 | Inpatient (IN) | payer OTHER ==
[~2019-01-14] VITALS: Ht 177.8 cm; Wt 105.0 kg
[~2019-01-14 08:13] MED LIST changes: +AUGMENTIN 875-875 MG PO; +BASAG SOL SC; +TEMAZEPAM30 MG PO
[2019-01-14 08:14] VITALS: BP 226/134
--- NOTE | 2019-01-14 08:19 | NUR ---
PATIENT BROUGHT IN BY AMBULANCE ON A 10L CPAP MASK. SPO2 READ OUT WAS 84% ON CPAP. PATIENT PLACED ON BIPAP AT 14/8 WITH 100% OXYGEN. PATIENTS SPO2 JUMP TO 100% ON THE BIPAP. OXYGEN TITRATED TO 60% WITH AN SPO2 OF 100%. CONTINUING TO MONITOR.
--- NOTE | 2019-01-14 08:20 | NUR ---
PT REFUSES TO DISROBE HIS PANTS.
--- NOTE | 2019-01-14 08:23 | NUR ---
BIPAP CHECK. RATE 25 TIDAL VOLUME 562 LEAK 54 ALARMS AND PARAMETER ALL SET. NO RESPIRATORY DISTRESS ON THE BIPAP. IPAP14/EPAP8 OXYGEN 60%
--- NOTE | 2019-01-14 08:33 | NUR ---
PT EXPRESSES MODERATE RELIEF IN SOB COMPLAINTS. POX REMAINS 100% ON 60% O2 VIA BIPAP 24/09 NOTED BY RESPIRATORY.
[2019-01-14 08:34] LABS: BASO # 0.1 10*3/uL (0.0-0.1); BASO % 0.9 % (0.0-1.0); EOS # 0.9 10*3/uL (0.0-0.4); EOS % 10.2 % (1.0-4.0); HEMATOCRIT 39.1 % (42.0-52.0); HEMOGLOBIN 11.7 g/dl (14.0-18.0); LYMPH # 2.1 10*3/uL (1.3-4.4); LYMPH % 24.3 % (27.0-41.0); MEAN CELL VOLUME 85.7 fl (80.0-94.0); MEAN CORPUSCULAR HGB 25.7 pg (27.0-31.0); MEAN CORPUSCULAR HGB CONC 29.9 g/dl (33.0-37.0); MONO # 0.6 10*3/uL (0.1-1.0); MONO % 6.9 % (3.0-9.0); NEUT % 57.2 % (47.0-73.0); PLATELET COUNT AUTOMATED 311 10*3/uL (130-400); RED BLOOD COUNT 4.56 10*6/uL (4.50-5.90); RED CELL DISTRI WIDTH 16.4 % (0-14.5); WHITE BLOOD COUNT 8.7 10*3/uL (4.8-10.8)
[2019-01-14 08:44] LABS: ACT PARTIAL THROMBO TIME 25.3 SECONDS (20.0-32.1)
[2019-01-14 08:46] VITALS: BP 186/88
[2019-01-14 08:52] LABS: ALBUMIN 2.7 gm/dl (3.1-4.5); ALKALINE PHOSPHATASE 182 U/L (45-117); BUN 19 mg/dl (7-24); CHLORIDE 103 mmol/L (98-107); LIPASE 206 U/L (73-393); POTASSIUM 3.8 mmol/L (3.5-5.1); SGOT/AST 18 IU/L (3-35); SGPT/ALT 12 U/L (12-78); SODIUM 136 mmol/L (136-145); TOTAL PROTEIN 8.4 gm/dL (6.4-8.2); TROPONIN I 0.017 ng/ml (<0.045)
--- NOTE | 2019-01-14 08:59 | NUR ---
CRITICAL LAB TEST RESULTS HAVE BEEN REPORTED TO DR AGUILAR,LACTIC ACID OF 2.5 AND GLUCOSE OF 583. CHARITO SYED
[2019-01-14 09:12] VITALS: BP 159/87
[2019-01-14 10:00] VITALS: BP 167/69
--- NOTE | 2019-01-14 10:00 | NUR ---
A 63, admitted to [facility], under the services of TJ Crowley DO with a diagnosis of ACUTE RESPIRATORY FAILURE. Chief complaint is CHF. Patient arrived via bed from ER. Monitor applied. Initial assessment completed. Vital signs taken and recorded. TJ CROWLEY DO notified of admission to the unit. Orders received. See assessment for past medical history, medications and allergies. Patient and/or family oriented to unit. [facility] visitation policy reviewed. Clothing/patient valuable form completed. DR. OJNES IN TO SEE THE PATIENT AND DISCUSS PLAN OF CARE, DR. KINCAID NOTIFIED THAT MED REC IS UP-TO-DATE. BART DRAKE J
--- NOTE | 2019-01-14 10:28 | NUR ---
SHIMON MATA,LENNY Tierney [id number] Please refer to the physician's history and physical for past medical history, comorbid conditions, and allergies. Diagnosis: ACUTE RESPIRATORY FAILURE WITH HYPOXIA Scott Score: 15,AT RISK WOUND DESCRIPTIONS: Wound Number: 1 Location of the wound: right plantar aspect of foot Type of wound: surgical Thickness: Full Size: 0.9cm x 1.6cm x 0.3cm Tunneling: none Undermining: none Sinus Tract: none Presence of Exudate: Serosanguineous Amount: Light Color: Yellow, red Odor: None Periwound Skin Appearance: Normal Wound edges: approximated Pain (associated with wound): tender at time of assessment How does patient state this happened? pt stated he had surgery during his last stay Wound Number: 2 Location of the wound: right lower extremity Thickness: Partial Size: 13.0cm x 40.0cm x <0.1cm Tunneling: none Undermining: none Sinus Tract: none Presence of Exudate: none Amount: None Color: Red Odor: None Periwound Skin Appearance: Erythema Wound edges: approximated Pain (associated with wound): none at time of assessment How does patient state this happened? pt stated this is an ongoing thing Wound Number: 3 Location of the wound: left lower extremity Thickness: Partial Size: 14.5cm x 40.0cm x <0.1cm Tunneling: none Undermining: none Sinus Tract: none Presence of Exudate: none Amount: None Color: Red Odor: None Periwound Skin Appearance: Erythema Wound edges: approximated Pain (associated with wound): none at time of assessment How does patient state this happened? pt stated this is an ongoing thing Patient has multiple linear partial thickness areas noted to entire back, abdomen, bilateral arms and bilateral lower extremities no drainage at time of assessment. Patient states this has been ongoing for 3 years and this comes and goes and stated he has tried several different types of topical medication. Surface the patient is resting on: XPRT SKIN PREVENTION RECOMMENDATION: 1. Pressure redistribution support surface as appropriate 2. Elevate heels 3. Remove boots/TEDS every shift and reapply 4. Head of bed 30 degrees as tolerated 5. Assess nutrition and hydration 6. Manage moisture 7. Avoid the use of containment devices while in bed 8. Use absorptive products on surfaces limit layers of linens on bed 9. Turn and reposition every 1-2 hours in bed and every 1 hour in chair as tolerated 10. Weight shifts every 15 minutes while up in chair 11. Offloading with pillows or device to keep heels elevated off bed 12. Monitor skin at least every shift 13. Inspect under medical devices twice a day WOUND TREATMENT RECOMMENDATIONS: Consult podiatry for area to right plantar aspect of foot Full thickness guidelines: Cleanse right plantar aspect of foot with nss and apply sureprep around the wound therahoney to wound bed and cover with optifoam gentle. heel raiser pro boots to bilateral feet while in bed. Cleanse bilateral lower extermities with soap and water and apply aquaphor ointment bid. elimite cream
--- NOTE | 2019-01-14 11:21 | NUR ---
DR. PARK NOTIFIED OF PODIATRY CONSULT. REASON FOR CONSULT AND PATIENT CONDITION REVIEWED.
--- NOTE | 2019-01-14 15:07 | NUR ---
PT MEDICATED WITH PERCOCET FOR C/O FOOT PAIN.
[2019-01-14 16:00] VITALS: BP 144/70
[2019-01-14 20:00] VITALS: BP 154/68
--- NOTE | 2019-01-14 21:38 | NUR ---
PERMETHRIN CREAM APPLIED PER ORDERS. TO WASH OFF AT 1130 AM
--- NOTE | 2019-01-14 21:38 | NUR ---
RESTORIL GIVEN PER PT REQUEST FOR INSOMNIA. CALL LIGHT IN REACH.
[2019-01-15] VITALS: BP 126/70
--- NOTE | 2019-01-15 00:27 | NUR ---
Patient is refusing NIV use at this time. States his breathing is just fine, and that he doesn't want to wear it. Patient is stable and comfortable on 2L nasal cannula.
[2019-01-15 04:00] VITALS: BP 149/59
[2019-01-15 05:09] LABS: ALBUMIN 2.5 gm/dl (3.1-4.5); ALKALINE PHOSPHATASE 107 U/L (45-117); BUN 19 mg/dl (7-24); CHLORIDE 103 mmol/L (98-107); PHOSPHOROUS 3.1 mg/dL (2.5-4.9); POTASSIUM 4.1 mmol/L (3.5-5.1); SGOT/AST 10 IU/L (3-35); SGPT/ALT 10 U/L (12-78); SODIUM 139 mmol/L (136-145); TOTAL PROTEIN 7.3 gm/dL (6.4-8.2)
[2019-01-15 06:15] LABS: HEMATOCRIT 33.7 % (42.0-52.0); HEMOGLOBIN 10.1 g/dl (14.0-18.0); MEAN CELL VOLUME 83.4 fl (80.0-94.0); PLATELET COUNT AUTOMATED 256 10*3/uL (130-400); RED BLOOD COUNT 4.04 10*6/uL (4.50-5.90); RED CELL DISTRI WIDTH 16.5 % (0-14.5); WHITE BLOOD COUNT 9.6 10*3/uL (4.8-10.8)
[2019-01-15 07:00] LABS: TOTAL CELLS COUNTED 100 #CELLS
[2019-01-15 07:01] LABS: PLATELET SUFFICIENCY NORMAL (NORMAL)
[2019-01-15 08:00] VITALS: BP 136/62
[2019-01-15 09:48] LABS: VITAMIN D, 25-HYDROXY 15.9 ng/mL (30-100)
--- NOTE | 2019-01-15 10:08 | NUR ---
PT TAKEN TO SHOWER ROOM TO WASH ELIMITE OINTMENT OFF.
--- NOTE | 2019-01-15 10:30 | NUR ---
Sandwich Counter Attendant in to talk to patient. Patient states lives at home with his grandson. There are lots of steps in the home. Physician: Dr. Abel Leung Pharmacy: [facility] Home health services: none Patient's level of ADLs: MINIMAL ASSIST Patient has working utilities: yes DME: cane, walker, wheelchair Follow-up physician's appointment after d/c: will be made by the hospitalist nurse director upon discharge Does patient want to access PORTAL?: no Discharge plan discussed with patient. He lives at home with his grandson. He is independent in his ADLs and ambulates with a cane. Discussed home health care services and he denies any home needs at this time. When medically stable he will be discharged to home. His son will provide transportation on discharge. He is receiving IV Lasix, fluid restriction of 1.5L, levaquin, BC pending, and podiatry consult for right foot wound. DAVID ANDINO
[2019-01-15 16:00] VITALS: BP 106/52
--- NOTE | 2019-01-15 19:17 | NUR ---
PT MEDICATED WITH PERCOCET AT HIS REQUEST FOR FOOT PAIN.
--- NOTE | 2019-01-15 19:34 | NUR ---
PT TRANSFERED TO [facility] [place] AT THIS [place]. REPORT GIVEN TO JOSS SYED.
--- NOTE | 2019-01-15 19:45 | NUR ---
PT TRANSFERRED FROM ICU TO THE FLOOR AT THIS TIME. RECEIVED REPORT FROM ICU NURSE GABRIELA. PT RESTING IN BED WITH NO COMPLAINTS AT THIS TIME AND STATES HE FEELS BETTER THAN EVER. HIS PULSE OX IS 98% ON ROOM AIR.
[2019-01-15 20:00] VITALS: BP 127/54; BP 150/68
--- NOTE | 2019-01-15 21:49 | NUR ---
RESTORIL GIVEN PER PT REQUEST FOR INSOMNIA. WILL CHECK EFFECTIVENESS. CALL LIGHT WITHIN REACH.
--- NOTE | 2019-01-15 22:22 | NUR ---
RESTORIL GIVEN PER PT REQUEST FOR INSOMNIA. WILL CHECK EFFECTIVENESS. CALL LIGHT WTIHIN REACH.
--- NOTE | 2019-01-15 23:53 | NUR ---
PT CO OF ITCHING TO LOWER LEGS. MEDICATED WITH PRN BENEDRYL. WILL CHECK EFFECTIVENESS. CALL LIGHT WITHIN REACH.
[2019-01-16] VITALS: BP 141/64
--- NOTE | 2019-01-16 00:20 | NUR ---
Patient is refusing NIV at this time.
--- NOTE | 2019-01-16 01:00 | NUR ---
PT STATES BENEDRYL WAS SOMEWHAT EFFECTIVE. WILL CONTINUE TO MONITOR.
[2019-01-16 06:32] LABS: BASO % 0.1 % (0.0-1.0); BUN 25 mg/dl (7-24); CHLORIDE 98 mmol/L (98-107); CREATININE 0.93 mg/dL (0.70-1.30); HEMATOCRIT 33.8 % (42.0-52.0); HEMOGLOBIN 10.2 g/dl (14.0-18.0); LYMPH # 0.6 10*3/uL (1.3-4.4); LYMPH % 7.4 % (27.0-41.0); MEAN CELL VOLUME 84.3 fl (80.0-94.0); MEAN CORPUSCULAR HGB 25.4 pg (27.0-31.0); MEAN CORPUSCULAR HGB CONC 30.2 g/dl (33.0-37.0); MEAN PLATELET VOLUME 11.2 fl (9.6-12.3); MONO # 0.2 10*3/uL (0.1-1.0); MONO % 2.2 % (3.0-9.0); NEUT # 7.5 10*3/uL (2.3-7.9); NEUT % 89.8 % (47.0-73.0); PLATELET COUNT AUTOMATED 259 10*3/uL (130-400); RED BLOOD COUNT 4.01 10*6/uL (4.50-5.90); RED CELL DISTRI WIDTH 16.7 % (0-14.5); SODIUM 135 mmol/L (136-145); WHITE BLOOD COUNT 8.4 10*3/uL (4.8-10.8)
[2019-01-16 08:00] VITALS: BP 129/82
--- NOTE | 2019-01-16 09:00 | NUR ---
Judicial Clerk in to see patient. He is sitting up in his bedside chair without distress noted eating breakfast. No new needs or request at this time. He denies any home needs and states the doctors told him yesterday he would be going home today. When medically stable he will be discharged to home.
[2019-01-16] MEDS ORDERED: LEVAQUIN750 M1 PO (10:33)
[2019-01-16] MEDS ORDERED: LASIX20 MG PO (10:33)
[2019-01-16] MEDS ORDERED: PREDNISONE10 MG PO (10:33)
[2019-01-16] MEDS ORDERED: VITAMIN D32000 UNI1 PO (10:33)
--- NOTE | 2019-01-16 11:47 | NUR ---
Discharge instructions reviewed with patient/family. Patient receptive and verbalizes understanding. Follow-up care arranged. Written instructions given to patient/family. Daughter states that podiatry was up today and changed dressing. Dressing not removed for wound care photos. ESTEFANY FERNANDEZ
--- NOTE | 2019-01-16 11:51 | NUR ---
Pt discharged in care of daughter with belongings.
== END 2019-01-16 11:51 | disposition home or self-care (01) | DRG 720 ==
LOC: ED 08:13 → ICCU 09:13 → 5E 01-15 20:09
PROVIDERS: Emergency Medicine; Family Medicine; Internal Medicine; ADMIT Internal Medicine
PROC: 5A09357 Assistance with Respiratory Ventilation, Less than 24 Consecutive Hours, Continuous Positive Airway Pressure (ICD-10-PCS; principal; 2019-01-14)
DX: A41.9 Sepsis, unspecified organism (principal); J18.9 Pneumonia, unspecified organism; J96.01 Acute respiratory failure with hypoxia; I50.33 Acute on chronic diastolic (congestive) heart failure; I25.10 Atherosclerotic heart disease of native coronary artery without angina pectoris; G89.29 Other chronic pain; M54.9 Dorsalgia, unspecified; K21.9 Gastro-esophageal reflux disease without esophagitis; E78.5 Hyperlipidemia, unspecified; G47.00 Insomnia, unspecified; I11.0 Hypertensive heart disease with heart failure; E66.9 Obesity, unspecified; I16.1 Hypertensive emergency; E11.65 Type 2 diabetes mellitus with hyperglycemia; E11.59 Type 2 diabetes mellitus with other circulatory complications; E55.9 Vitamin D deficiency, unspecified; R65.20 Severe sepsis without septic shock; E11.51 Type 2 diabetes mellitus with diabetic peripheral angiopathy without gangrene; Z82.49 Family history of ischemic heart disease and other diseases of the circulatory system; Z88.8 Allergy status to other drugs, medicaments and biological substances; Z79.4 Long term (current) use of insulin

== ENCOUNTER 2019-09-09 18:35 | Emergency (ER) | payer OTHER ==
[~2019-09-09] VITALS: Ht 175.2 cm; Wt 95.3 kg
[~2019-09-09 18:35] MED LIST changes: +LASIX20 MG PO; +LEVAQUIN750 M1 PO; +PREDNISONE10 MG PO; +VITAMIN D32000 UNI1 PO
[2019-09-09 20:10] LABS: BASO % 0.1 % (0.0-1.0); EOS % 0.3 % (1.0-4.0); HEMATOCRIT 38.8 % (42.0-52.0); LYMPH # 0.8 10*3/uL (1.3-4.4); LYMPH % 11.4 % (27.0-41.0); MEAN CELL VOLUME 79.7 fl (80.0-94.0); MEAN CORPUSCULAR HGB 25.3 pg (27.0-31.0); MEAN CORPUSCULAR HGB CONC 31.7 g/dl (33.0-37.0); MEAN PLATELET VOLUME 10.3 fl (9.6-12.3); MONO # 0.4 10*3/uL (0.1-1.0); MONO % 4.8 % (3.0-9.0); NEUT % 83.1 % (47.0-73.0); PLATELET COUNT AUTOMATED 265 10*3/uL (130-400); RED BLOOD COUNT 4.87 10*6/uL (4.50-5.90); RED CELL DISTRI WIDTH 14.8 % (0-14.5); WHITE BLOOD COUNT 7.3 10*3/uL (4.8-10.8)
[2019-09-09 20:24] LABS: ALBUMIN 2.1 gm/dl (3.1-4.5); ALKALINE PHOSPHATASE 97 U/L (45-117); BUN 9 mg/dl (7-24); CHLORIDE 104 mmol/L (98-107); CREATININE 0.66 mg/dL (0.70-1.30); LIPASE 58 U/L (73-393); POTASSIUM 4.4 mmol/L (3.5-5.1); SGOT/AST 11 IU/L (3-35); SGPT/ALT 13 U/L (12-78); SODIUM 136 mmol/L (136-145); TOTAL PROTEIN 6.6 gm/dL (6.4-8.2); TROPONIN I < 0.015 ng/ml (<0.045)
[2019-09-09 20:47] LABS: BILIRUBIN NEGATIVE (NEGATIVE); BLOOD 2+ (NEGATIVE); CLARITY SL CLOUDY (CLEAR); COLOR YELLOW (YELLOW); GLUCOSE 3+ (NEGATIVE); KETONE TRACE (NEGATIVE)
[2019-09-09 20:48] LABS: LEUKO ESTERASE NEGATIVE (NEGATIVE); NITRITE NEGATIVE (NEGATIVE); UROBILINOGEN 0.2 E.U./dl (0.2-1.0)
[2019-09-09 20:57] LABS: BACTERIA 2+; RBC 0-2 rbc/hpf (0-2)
[2019-09-09 22:03] VITALS: BP 179/81
[2019-09-09] MEDS ORDERED: PEPCID40 MG PO (23:16)
== END 2019-09-09 23:50 | disposition home or self-care (01) ==
LOC: ED 18:35
PROVIDERS: Emergency Medicine
DX: K29.70 Gastritis, unspecified, without bleeding (principal); I11.0 Hypertensive heart disease with heart failure; I50.9 Heart failure, unspecified; E11.9 Type 2 diabetes mellitus without complications; I25.10 Atherosclerotic heart disease of native coronary artery without angina pectoris; Z88.8 Allergy status to other drugs, medicaments and biological substances; Z79.899 Other long term (current) drug therapy; Z79.4 Long term (current) use of insulin; Z79.2 Long term (current) use of antibiotics

== ENCOUNTER 2020-02-17 18:55 | Inpatient (IN) | payer OTHER ==
[~2020-02-17] VITALS: Ht 177.8 cm; Wt 91.2 kg
[2020-02-17 09:30] VITALS: BP 190/67
[~2020-02-17 18:55] MED LIST changes: +PEPCID40 MG PO
[2020-02-17 19:04] VITALS: BP 170/63
[2020-02-17 19:51] LABS: BASO % 0.3 % (0.0-1.0); EOS # 0.2 10*3/uL (0.0-0.4); EOS % 3.1 % (1.0-4.0); HEMATOCRIT 35.2 % (42.0-52.0); LYMPH # 0.9 10*3/uL (1.3-4.4); LYMPH % 13.8 % (27.0-41.0); MEAN CELL VOLUME 78.4 fl (80.0-94.0); MEAN CORPUSCULAR HGB 23.2 pg (27.0-31.0); MEAN CORPUSCULAR HGB CONC 29.5 g/dl (33.0-37.0); MEAN PLATELET VOLUME 10.3 fl (9.6-12.3); MONO # 0.4 10*3/uL (0.1-1.0); MONO % 6.4 % (3.0-9.0); NEUT # 5.2 10*3/uL (2.3-7.9); NEUT % 76.1 % (47.0-73.0); PLATELET COUNT AUTOMATED 378 10*3/uL (130-400); RED BLOOD COUNT 4.49 10*6/uL (4.50-5.90); RED CELL DISTRI WIDTH 15.2 % (0-14.5); WHITE BLOOD COUNT 6.8 10*3/uL (4.8-10.8)
[2020-02-17 20:15] LABS: ALBUMIN 1.7 gm/dl (3.1-4.5); ALKALINE PHOSPHATASE 127 U/L (45-117); BUN 7 mg/dl (7-24); CHLORIDE 103 mmol/L (98-107); CREATININE 0.86 mg/dL (0.70-1.30); POTASSIUM 3.2 mmol/L (3.5-5.1); SGOT/AST 10 IU/L (3-35); SGPT/ALT 7 U/L (12-78); SODIUM 138 mmol/L (136-145); TOTAL PROTEIN 6.3 gm/dL (6.4-8.2)
[2020-02-17 20:15] LABS: INTERNATIONAL NORM RATIO 1.1 (2.0-3.5)
[2020-02-17 20:16] LABS: TROPONIN I < 0.015 ng/ml (<0.045)
[2020-02-17] MEDS ORDERED: TEMAZEPAM15 M1 PO (21:29)
[2020-02-17] MEDS ORDERED: KLOR-CON M2020 ME1 PO (21:31)
[2020-02-17] MEDS ORDERED: POTASSIUM CHLO20 ME3 PO (21:32)
[2020-02-17] MEDS ORDERED: FAMOTIDINE40 MG PO (21:33)
[2020-02-17] MEDS ORDERED: GOOD NEIGHBOR M25 M1 PO (21:33)
[2020-02-17] MEDS ORDERED: LANTUS SOL100 UNIT/1 SC (21:35)
[2020-02-17 22:11] VITALS: BP 155/76
[2020-02-18 02:08] VITALS: BP 150/66
[2020-02-18 05:43] LABS: ALBUMIN 1.7 gm/dl (3.1-4.5); ALKALINE PHOSPHATASE 105 U/L (45-117); BUN 9 mg/dl (7-24); CHLORIDE 106 mmol/L (98-107); CHOLESTEROL 92 mg/dL (<200); CREATININE 0.71 mg/dL (0.70-1.30); HDL CHOLESTEROL 35 mg/dl (40-60); LDL CHOLESTEROL 36 mg/dL (9-159); POTASSIUM 3.3 mmol/L (3.5-5.1); SGOT/AST 8 IU/L (3-35); SGPT/ALT 11 U/L (12-78); SODIUM 142 mmol/L (136-145); TRIGLYCERIDES 104 mg/dl (<150); VLDL CHOLESTEROL 21 mg/dL (6-40)
[2020-02-18 06:03] VITALS: BP 156/87
[2020-02-18 06:20] LABS: BASO % 0.2 % (0.0-1.0); EOS # 0.1 10*3/uL (0.0-0.4); HEMATOCRIT 33.9 % (42.0-52.0); LYMPH # 1.1 10*3/uL (1.3-4.4); LYMPH % 12.6 % (27.0-41.0); MEAN CELL VOLUME 78.3 fl (80.0-94.0); MEAN CORPUSCULAR HGB 23.6 pg (27.0-31.0); MEAN CORPUSCULAR HGB CONC 30.1 g/dl (33.0-37.0); MEAN PLATELET VOLUME 10.3 fl (9.6-12.3); MONO # 0.7 10*3/uL (0.1-1.0); MONO % 8.2 % (3.0-9.0); NEUT # 6.9 10*3/uL (2.3-7.9); NEUT % 77.7 % (47.0-73.0); PLATELET COUNT AUTOMATED 354 10*3/uL (130-400); RED BLOOD COUNT 4.33 10*6/uL (4.50-5.90); RED CELL DISTRI WIDTH 15.2 % (0-14.5); WHITE BLOOD COUNT 8.9 10*3/uL (4.8-10.8)
[2020-02-18 07:39] LABS: VITAMIN D, 25-HYDROXY 9.5 ng/mL (30-100)
[2020-02-18 08:20] VITALS: BP 148/62
[2020-02-18 12:00] VITALS: BP 176/58
[2020-02-18 16:00] VITALS: BP 148/52
[2020-02-18 20:00] VITALS: BP 128/50
[2020-02-19] VITALS: BP 135/50
[2020-02-19 06:31] LABS: BASO % 0.4 % (0.0-1.0); EOS # 0.4 10*3/uL (0.0-0.4); EOS % 5.5 % (1.0-4.0); HEMATOCRIT 31.1 % (42.0-52.0); LYMPH # 1.9 10*3/uL (1.3-4.4); LYMPH % 27.3 % (27.0-41.0); MEAN CELL VOLUME 78.3 fl (80.0-94.0); MEAN CORPUSCULAR HGB 23.4 pg (27.0-31.0); MEAN CORPUSCULAR HGB CONC 29.9 g/dl (33.0-37.0); MEAN PLATELET VOLUME 10.2 fl (9.6-12.3); MONO # 0.6 10*3/uL (0.1-1.0); MONO % 8.6 % (3.0-9.0); NEUT # 3.9 10*3/uL (2.3-7.9); NEUT % 58.1 % (47.0-73.0); PLATELET COUNT AUTOMATED 340 10*3/uL (130-400); RED BLOOD COUNT 3.97 10*6/uL (4.50-5.90); RED CELL DISTRI WIDTH 15.5 % (0-14.5); WHITE BLOOD COUNT 6.8 10*3/uL (4.8-10.8)
[2020-02-19 06:43] LABS: BUN 10 mg/dl (7-24); CHLORIDE 107 mmol/L (98-107); POTASSIUM 3.8 mmol/L (3.5-5.1); SODIUM 142 mmol/L (136-145)
[2020-02-19 06:44] LABS: CREATININE 0.66 mg/dL (0.70-1.30)
[2020-02-19 08:00] VITALS: BP 130/77
[2020-02-19 12:00] VITALS: BP 135/75
[2020-02-19 16:00] VITALS: BP 163/48
[2020-02-19 20:00] VITALS: BP 156/56
[2020-02-20] VITALS: BP 169/57
[2020-02-20 00:30] VITALS: BP 160/58
[2020-02-20 07:40] VITALS: BP 140/72
[2020-02-20] MEDS ORDERED: LASIX40 MG PO (11:47)
[2020-02-20 12:28] LABS: BASO % 0.4 % (0.0-1.0); EOS # 0.3 10*3/uL (0.0-0.4); EOS % 3.8 % (1.0-4.0); LYMPH % 27.6 % (27.0-41.0); MEAN CELL VOLUME 79.8 fl (80.0-94.0); MEAN CORPUSCULAR HGB 23.5 pg (27.0-31.0); MEAN CORPUSCULAR HGB CONC 29.4 g/dl (33.0-37.0); MEAN PLATELET VOLUME 10.1 fl (9.6-12.3); MONO # 0.7 10*3/uL (0.1-1.0); MONO % 9.7 % (3.0-9.0); NEUT # 4.3 10*3/uL (2.3-7.9); NEUT % 58.1 % (47.0-73.0); PLATELET COUNT AUTOMATED 353 10*3/uL (130-400); RED BLOOD COUNT 4.26 10*6/uL (4.50-5.90); RED CELL DISTRI WIDTH 15.8 % (0-14.5); WHITE BLOOD COUNT 7.3 10*3/uL (4.8-10.8)
== END 2020-02-20 13:50 | disposition home or self-care (01) | DRG 194 ==
LOC: ED 18:55 → EDHOLD 20:57 → 5E 20:57
PROVIDERS: Family Medicine; Hospitalist; Physician Assistant; Podiatrist Foot & Ankle Surgery; ADMIT Internal Medicine; ATTEND Internal Medicine
DX: I11.0 Hypertensive heart disease with heart failure (principal); I25.10 Atherosclerotic heart disease of native coronary artery without angina pectoris; L03.116 Cellulitis of left lower limb; I50.33 Acute on chronic diastolic (congestive) heart failure; G89.29 Other chronic pain; E87.6 Hypokalemia; M54.9 Dorsalgia, unspecified; K21.9 Gastro-esophageal reflux disease without esophagitis; E78.5 Hyperlipidemia, unspecified; E11.65 Type 2 diabetes mellitus with hyperglycemia; E55.9 Vitamin D deficiency, unspecified; D64.9 Anemia, unspecified; E43 Unspecified severe protein-calorie malnutrition; G47.00 Insomnia, unspecified; E66.9 Obesity, unspecified; E11.51 Type 2 diabetes mellitus with diabetic peripheral angiopathy without gangrene; Y92.89 Other specified places as the place of occurrence of the external cause; S81.801A Unspecified open wound, right lower leg, initial encounter; L03.115 Cellulitis of right lower limb; I87.8 Other specified disorders of veins; Z20.822 Contact with and (suspected) exposure to COVID-19; Z68.28 Body mass index [BMI] 28.0-28.9, adult; S81.802A Unspecified open wound, left lower leg, initial encounter; X58.XXXA Exposure to other specified factors, initial encounter; Y93.89 Activity, other specified; Y99.8 Other external cause status; Z79.4 Long term (current) use of insulin; Z88.8 Allergy status to other drugs, medicaments and biological substances; Z87.891 Personal history of nicotine dependence; Z82.49 Family history of ischemic heart disease and other diseases of the circulatory system; Z79.899 Other long term (current) drug therapy

== ENCOUNTER 2020-03-15 18:06 | Inpatient (IN) | payer OTHER ==
[~2020-03-15] VITALS: Ht 177.8 cm; Wt 90.8 kg
[~2020-03-15 18:06] MED LIST changes: +FAMOTIDINE40 MG PO; +GOOD NEIGHBOR M25 M1 PO; +KLOR-CON M2020 ME1 PO; +LANTUS SOL100 UNIT/1 SC; +LASIX40 MG PO
[2020-03-15 18:09] VITALS: BP 174/84
[2020-03-15 18:56] LABS: BASO % 0.4 % (0.0-1.0); EOS # 0.2 10*3/uL (0.0-0.4); EOS % 3.4 % (1.0-4.0); HEMATOCRIT 31.1 % (42.0-52.0); LYMPH # 1.3 10*3/uL (1.3-4.4); LYMPH % 18.9 % (27.0-41.0); MEAN CELL VOLUME 77.4 fl (80.0-94.0); MEAN CORPUSCULAR HGB 23.1 pg (27.0-31.0); MEAN CORPUSCULAR HGB CONC 29.9 g/dl (33.0-37.0); MEAN PLATELET VOLUME 10.4 fl (9.6-12.3); MONO # 0.5 10*3/uL (0.1-1.0); MONO % 7.7 % (3.0-9.0); NEUT # 4.7 10*3/uL (2.3-7.9); NEUT % 69.3 % (47.0-73.0); PLATELET COUNT AUTOMATED 284 10*3/uL (130-400); RED BLOOD COUNT 4.02 10*6/uL (4.50-5.90); RED CELL DISTRI WIDTH 15.6 % (0-14.5); WHITE BLOOD COUNT 6.8 10*3/uL (4.8-10.8)
[2020-03-15 19:07] LABS: ACT PARTIAL THROMBO TIME 28.2 SECONDS (20.0-32.1); INTERNATIONAL NORM RATIO 1.1 (2.0-3.5)
[2020-03-15 19:12] LABS: ALBUMIN 2.3 gm/dl (3.1-4.5); ALKALINE PHOSPHATASE 81 U/L (45-117); BUN 18 mg/dl (7-24); CHLORIDE 103 mmol/L (98-107); CREATININE 0.96 mg/dL (0.70-1.30); LIPASE 127 U/L (73-393); POTASSIUM 3.7 mmol/L (3.5-5.1); SGOT/AST 8 IU/L (3-35); SGPT/ALT 8 U/L (12-78); SODIUM 137 mmol/L (136-145); TOTAL PROTEIN 6.6 gm/dL (6.4-8.2)
[2020-03-15 19:14] LABS: TROPONIN I < 0.015 ng/ml (<0.045)
[2020-03-15 19:54] VITALS: BP 167/72
[2020-03-15 21:20] VITALS: BP 166/66
[2020-03-15 21:48] LABS: IRON 40 ug/dL (65-175); TOTAL IRON BINDING CAPACITY 276 ug/dl (250-450)
[2020-03-15 23:45] VITALS: BP 186/66
[2020-03-16] VITALS (7 sets, daily range): BP systolic 110–171; BP diastolic 44–81
[2020-03-16 06:28] LABS: BASO % 0.3 % (0.0-1.0); EOS # 0.1 10*3/uL (0.0-0.4); EOS % 1.7 % (1.0-4.0); HEMATOCRIT 36.1 % (42.0-52.0); LYMPH # 0.9 10*3/uL (1.3-4.4); LYMPH % 12.4 % (27.0-41.0); MEAN CELL VOLUME 76.3 fl (80.0-94.0); MEAN CORPUSCULAR HGB 22.6 pg (27.0-31.0); MEAN CORPUSCULAR HGB CONC 29.6 g/dl (33.0-37.0); MEAN PLATELET VOLUME 10.8 fl (9.6-12.3); MONO # 0.4 10*3/uL (0.1-1.0); MONO % 5.1 % (3.0-9.0); NEUT % 80.2 % (47.0-73.0); PLATELET COUNT AUTOMATED 310 10*3/uL (130-400); RED BLOOD COUNT 4.73 10*6/uL (4.50-5.90); RED CELL DISTRI WIDTH 15.6 % (0-14.5); WHITE BLOOD COUNT 7.5 10*3/uL (4.8-10.8)
[2020-03-16 06:47] LABS: ACT PARTIAL THROMBO TIME 28.5 SECONDS (20.0-32.1)
[2020-03-16 07:07] LABS: ALBUMIN 2.5 gm/dl (3.1-4.5); ALKALINE PHOSPHATASE 90 U/L (45-117); BUN 14 mg/dl (7-24); CHLORIDE 101 mmol/L (98-107); CHOLESTEROL 121 mg/dL (<200); POTASSIUM 3.3 mmol/L (3.5-5.1); SGOT/AST 7 IU/L (3-35); SGPT/ALT 9 U/L (12-78); SODIUM 138 mmol/L (136-145); TOTAL PROTEIN 7.2 gm/dL (6.4-8.2); TRIGLYCERIDES 183 mg/dl (<150); VLDL CHOLESTEROL 37 mg/dL (6-40)
[2020-03-16 07:14] LABS: FREE T4 0.95 ng/dl (0.76-1.46); HDL CHOLESTEROL 38 mg/dl (40-60); LDL CHOLESTEROL 46 mg/dL (9-159)
[2020-03-16 08:02] LABS: VITAMIN D, 25-HYDROXY 11.3 ng/mL (30-100)
[2020-03-16 14:23] LABS: BUN 14 mg/dl (7-24); CHLORIDE 100 mmol/L (98-107); CREATININE 0.87 mg/dL (0.70-1.30); POTASSIUM 4.1 mmol/L (3.5-5.1); SODIUM 137 mmol/L (136-145)
[2020-03-17] VITALS: BP 154/59
[2020-03-17 06:18] LABS: BASO % 0.3 % (0.0-1.0); EOS # 0.2 10*3/uL (0.0-0.4); EOS % 3.2 % (1.0-4.0); HEMATOCRIT 34.8 % (42.0-52.0); LYMPH # 1.6 10*3/uL (1.3-4.4); MEAN CELL VOLUME 77.3 fl (80.0-94.0); MEAN CORPUSCULAR HGB 22.7 pg (27.0-31.0); MEAN CORPUSCULAR HGB CONC 29.3 g/dl (33.0-37.0); MEAN PLATELET VOLUME 11.1 fl (9.6-12.3); MONO # 0.6 10*3/uL (0.1-1.0); MONO % 9.3 % (3.0-9.0); NEUT # 4.4 10*3/uL (2.3-7.9); NEUT % 63.9 % (47.0-73.0); PLATELET COUNT AUTOMATED 299 10*3/uL (130-400); RED CELL DISTRI WIDTH 16.1 % (0-14.5); WHITE BLOOD COUNT 6.9 10*3/uL (4.8-10.8)
[2020-03-17 06:48] LABS: ALBUMIN 2.2 gm/dl (3.1-4.5); BUN 19 mg/dl (7-24); CHLORIDE 98 mmol/L (98-107); POTASSIUM 3.7 mmol/L (3.5-5.1); SGOT/AST 7 IU/L (3-35); SGPT/ALT 8 U/L (12-78); SODIUM 136 mmol/L (136-145); TOTAL PROTEIN 6.5 gm/dL (6.4-8.2)
[2020-03-17 06:50] LABS: ALKALINE PHOSPHATASE 73 U/L (45-117)
[2020-03-17 08:00] VITALS: BP 160/52
[2020-03-17 12:00] VITALS: BP 158/55
[2020-03-17 16:00] VITALS: BP 160/58
[2020-03-17 20:00] VITALS: BP 95/40
[2020-03-18] VITALS: BP 114/53
[2020-03-18 06:11] LABS: BASO % 0.4 % (0.0-1.0); EOS # 0.3 10*3/uL (0.0-0.4); EOS % 3.5 % (1.0-4.0); HEMATOCRIT 29.8 % (42.0-52.0); LYMPH # 1.9 10*3/uL (1.3-4.4); LYMPH % 25.2 % (27.0-41.0); MEAN CELL VOLUME 78.8 fl (80.0-94.0); MEAN CORPUSCULAR HGB 23.5 pg (27.0-31.0); MEAN CORPUSCULAR HGB CONC 29.9 g/dl (33.0-37.0); MEAN PLATELET VOLUME 10.6 fl (9.6-12.3); MONO # 0.7 10*3/uL (0.1-1.0); NEUT # 4.5 10*3/uL (2.3-7.9); NEUT % 60.4 % (47.0-73.0); PLATELET COUNT AUTOMATED 258 10*3/uL (130-400); RED BLOOD COUNT 3.78 10*6/uL (4.50-5.90); RED CELL DISTRI WIDTH 16.3 % (0-14.5); WHITE BLOOD COUNT 7.4 10*3/uL (4.8-10.8)
[2020-03-18 06:22] LABS: CHLORIDE 100 mmol/L (98-107); POTASSIUM 4.2 mmol/L (3.5-5.1); SODIUM 136 mmol/L (136-145)
[2020-03-18 06:37] LABS: CREATININE 1.16 mg/dL (0.70-1.30)
[2020-03-18 06:40] LABS: BUN 30 mg/dl (7-24)
[2020-03-18 08:00] VITALS: BP 118/39
[2020-03-18 09:53] VITALS: BP 118/58
[2020-03-18 12:00] VITALS: BP 87/55
[2020-03-18 14:23] VITALS: BP 110/52
[2020-03-18] MEDS ORDERED: PERCOCET 10-321 EACH PO (14:57)
[2020-03-18] MEDS ORDERED: METHADONE HCL10 MG PO ×4 (14:57→15:02)
== END 2020-03-18 16:37 | DRG 194 ==
LOC: ED 18:06 → EDHOLD 20:12 → 5E 20:12
PROVIDERS: Emergency Medicine; Hospitalist; Internal Medicine; Social Worker Clinical; ADMIT Internal Medicine; ATTEND Internal Medicine
DX: I11.0 Hypertensive heart disease with heart failure (principal); I50.33 Acute on chronic diastolic (congestive) heart failure; E11.65 Type 2 diabetes mellitus with hyperglycemia; R79.89 Other specified abnormal findings of blood chemistry; E43 Unspecified severe protein-calorie malnutrition; E11.42 Type 2 diabetes mellitus with diabetic polyneuropathy; K21.9 Gastro-esophageal reflux disease without esophagitis; G89.29 Other chronic pain; I25.10 Atherosclerotic heart disease of native coronary artery without angina pectoris; E11.51 Type 2 diabetes mellitus with diabetic peripheral angiopathy without gangrene; E66.9 Obesity, unspecified; E78.5 Hyperlipidemia, unspecified; D50.9 Iron deficiency anemia, unspecified; M54.5 Low back pain; E78.2 Mixed hyperlipidemia; E55.9 Vitamin D deficiency, unspecified; G47.09 Other insomnia; Z20.822 Contact with and (suspected) exposure to COVID-19; Z79.4 Long term (current) use of insulin; Z88.8 Allergy status to other drugs, medicaments and biological substances; Z87.891 Personal history of nicotine dependence; Z82.49 Family history of ischemic heart disease and other diseases of the circulatory system; Z68.26 Body mass index [BMI] 26.0-26.9, adult; Z79.899 Other long term (current) drug therapy

== ENCOUNTER 2020-04-21 09:36 | Inpatient (IN) | payer OTHER ==
[~2020-04-21] VITALS: Ht 177.8 cm; Wt 100.8 kg
[2020-04-21 09:36] VITALS: BP 207/82
[2020-04-21 10:06] LABS: ABG BASE EXCESS 2.5 mmol/L (-2.0-2.0); ARTERIAL BLOOD GAS PH 7.423 (7.35-7.45); ARTERIAL BLOOD GAS PO2 104.1 (80-90)
[2020-04-21 10:12] LABS: BASO % 0.3 % (0.0-1.0); EOS # 0.2 10*3/uL (0.0-0.4); EOS % 2.4 % (1.0-4.0); HEMATOCRIT 32.2 % (42.0-52.0); LYMPH # 1.2 10*3/uL (1.3-4.4); LYMPH % 13.7 % (27.0-41.0); MEAN CELL VOLUME 77.8 fl (80.0-94.0); MEAN CORPUSCULAR HGB 22.5 pg (27.0-31.0); MEAN CORPUSCULAR HGB CONC 28.9 g/dl (33.0-37.0); MEAN PLATELET VOLUME 9.5 fl (9.6-12.3); MONO # 0.6 10*3/uL (0.1-1.0); MONO % 6.7 % (3.0-9.0); NEUT # 6.6 10*3/uL (2.3-7.9); NEUT % 76.1 % (47.0-73.0); PLATELET COUNT AUTOMATED 416 10*3/uL (130-400); RED BLOOD COUNT 4.14 10*6/uL (4.50-5.90); RED CELL DISTRI WIDTH 17.1 % (0-14.5); WHITE BLOOD COUNT 8.6 10*3/uL (4.8-10.8)
[2020-04-21 10:13] VITALS: BP 176/66
[2020-04-21 10:23] LABS: ACT PARTIAL THROMBO TIME 28.7 SECONDS (20.0-32.1)
[2020-04-21 10:29] LABS: ALBUMIN 1.7 gm/dl (3.1-4.5); ALKALINE PHOSPHATASE 136 U/L (45-117); BUN 16 mg/dl (7-24); CHLORIDE 106 mmol/L (98-107); CREATININE 0.71 mg/dL (0.70-1.30); SGOT/AST 9 IU/L (3-35); SGPT/ALT 11 U/L (12-78); SODIUM 141 mmol/L (136-145); TOTAL PROTEIN 6.3 gm/dL (6.4-8.2)
[2020-04-21 10:30] LABS: TROPONIN I < 0.015 ng/ml (<0.045)
[2020-04-21 11:23] VITALS: BP 161/52
[2020-04-21 13:47] LABS: BILIRUBIN Negative (Negative); BLOOD Trace-Lysed (Negative); CLARITY Clear (Clear); COLOR Yellow (Yellow); GLUCOSE Trace (Negative); KETONE Negative (Negative); LEUKO ESTERASE Negative (Negative); NITRITE Negative (Negative); PH 6.5 (4.5-8.0); SPECIFIC GRAVITY 1.015 (1.001-1.030)
[2020-04-21 13:52] LABS: WBC 0-2 wbc/hpf (0-5)
[2020-04-21 14:42] VITALS: BP 143/98
[2020-04-21 15:00] VITALS: BP 189/70
[2020-04-21] MEDS ORDERED: METHADONE HCL10 MG PO ×3 (16:12→16:13)
[2020-04-21] MEDS ORDERED: PERCOCET 10-321 EACH PO (16:19)
[2020-04-21 20:00] VITALS: BP 188/75
[2020-04-22] VITALS (9 sets, daily range): BP systolic 145–200; BP diastolic 52–82
[2020-04-22 06:32] LABS: BASO % 0.2 % (0.0-1.0); HEMATOCRIT 30.9 % (42.0-52.0); LYMPH # 0.8 10*3/uL (1.3-4.4); LYMPH % 12.8 % (27.0-41.0); MEAN CELL VOLUME 76.3 fl (80.0-94.0); MEAN CORPUSCULAR HGB 22.5 pg (27.0-31.0); MEAN CORPUSCULAR HGB CONC 29.4 g/dl (33.0-37.0); MEAN PLATELET VOLUME 9.6 fl (9.6-12.3); MONO # 0.4 10*3/uL (0.1-1.0); MONO % 5.5 % (3.0-9.0); NEUT # 5.3 10*3/uL (2.3-7.9); PLATELET COUNT AUTOMATED 374 10*3/uL (130-400); RED BLOOD COUNT 4.05 10*6/uL (4.50-5.90); RED CELL DISTRI WIDTH 16.8 % (0-14.5); WHITE BLOOD COUNT 6.5 10*3/uL (4.8-10.8)
[2020-04-22 06:53] LABS: ALBUMIN 1.6 gm/dl (3.1-4.5); ALKALINE PHOSPHATASE 118 U/L (45-117); BUN 17 mg/dl (7-24); CHLORIDE 105 mmol/L (98-107); CREATININE 0.69 mg/dL (0.70-1.30); LDH 182 U/L (87-241); POTASSIUM 4.4 mmol/L (3.5-5.1); SGOT/AST 7 IU/L (3-35); SGPT/ALT 8 U/L (12-78); SODIUM 139 mmol/L (136-145); TOTAL PROTEIN 5.8 gm/dL (6.4-8.2)
[2020-04-22 08:52] LABS: FERRITIN 67.3 ng/mL (22.0-322.0); VITAMIN D, 25-HYDROXY 11.7 ng/mL (30-100)
[2020-04-23] VITALS: BP 153/71
[2020-04-23 05:47] LABS: ALBUMIN 1.7 gm/dl (3.1-4.5); ALKALINE PHOSPHATASE 103 U/L (45-117); BUN 23 mg/dl (7-24); CHLORIDE 101 mmol/L (98-107); CREATININE 0.72 mg/dL (0.70-1.30); LDH 153 U/L (87-241); POTASSIUM 4.2 mmol/L (3.5-5.1); SGOT/AST 5 IU/L (3-35); SGPT/ALT 6 U/L (12-78); SODIUM 136 mmol/L (136-145); TOTAL PROTEIN 5.7 gm/dL (6.4-8.2)
[2020-04-23 05:54] LABS: BASO % 0.2 % (0.0-1.0); EOS % 0.2 % (1.0-4.0); HEMATOCRIT 27.9 % (42.0-52.0); LYMPH # 1.4 10*3/uL (1.3-4.4); MEAN CORPUSCULAR HGB 22.3 pg (27.0-31.0); MEAN CORPUSCULAR HGB CONC 29.4 g/dl (33.0-37.0); MEAN PLATELET VOLUME 9.7 fl (9.6-12.3); MONO # 0.8 10*3/uL (0.1-1.0); MONO % 8.6 % (3.0-9.0); NEUT % 75.6 % (47.0-73.0); PLATELET COUNT AUTOMATED 349 10*3/uL (130-400); RED BLOOD COUNT 3.67 10*6/uL (4.50-5.90); RED CELL DISTRI WIDTH 16.6 % (0-14.5); WHITE BLOOD COUNT 9.2 10*3/uL (4.8-10.8)
[2020-04-23 08:00] VITALS: BP 180/72
[2020-04-23 12:00] VITALS: BP 164/58
[2020-04-23 16:00] VITALS: BP 158/62
[2020-04-23 20:00] VITALS: BP 168/54
[2020-04-24] VITALS: BP 176/61
[2020-04-24 05:08] LABS: BASO % 0.2 % (0.0-1.0); EOS % 0.1 % (1.0-4.0); HEMATOCRIT 29.8 % (42.0-52.0); LYMPH # 1.6 10*3/uL (1.3-4.4); LYMPH % 16.2 % (27.0-41.0); MEAN CELL VOLUME 75.1 fl (80.0-94.0); MEAN CORPUSCULAR HGB 22.2 pg (27.0-31.0); MEAN CORPUSCULAR HGB CONC 29.5 g/dl (33.0-37.0); MEAN PLATELET VOLUME 9.9 fl (9.6-12.3); MONO # 0.8 10*3/uL (0.1-1.0); MONO % 8.1 % (3.0-9.0); NEUT # 7.4 10*3/uL (2.3-7.9); NEUT % 74.9 % (47.0-73.0); PLATELET COUNT AUTOMATED 394 10*3/uL (130-400); RED BLOOD COUNT 3.97 10*6/uL (4.50-5.90); RED CELL DISTRI WIDTH 16.7 % (0-14.5); WHITE BLOOD COUNT 9.9 10*3/uL (4.8-10.8)
[2020-04-24 05:09] LABS: BUN 27 mg/dl (7-24); CHLORIDE 102 mmol/L (98-107); POTASSIUM 3.9 mmol/L (3.5-5.1); SODIUM 137 mmol/L (136-145)
[2020-04-24 08:00] VITALS: BP 176/56
[2020-04-24 12:00] VITALS: BP 151/56
== END 2020-04-24 14:36 | disposition home health service (06) | DRG 137 ==
LOC: ED 09:36 → EDHOLD 11:37 → 4E 11:37 → EDHOLD 11:41 → 4E 14:24
PROVIDERS: Emergency Medicine; Hospitalist; ADMIT Internal Medicine; ATTEND Internal Medicine
DX: J15.6 Pneumonia due to other Gram-negative bacteria (principal); I11.0 Hypertensive heart disease with heart failure; I50.33 Acute on chronic diastolic (congestive) heart failure; Z20.822 Contact with and (suspected) exposure to COVID-19; E11.42 Type 2 diabetes mellitus with diabetic polyneuropathy; Z79.4 Long term (current) use of insulin; E43 Unspecified severe protein-calorie malnutrition; D50.9 Iron deficiency anemia, unspecified; E78.5 Hyperlipidemia, unspecified; G47.00 Insomnia, unspecified; I25.10 Atherosclerotic heart disease of native coronary artery without angina pectoris; K21.9 Gastro-esophageal reflux disease without esophagitis; E11.65 Type 2 diabetes mellitus with hyperglycemia; E11.51 Type 2 diabetes mellitus with diabetic peripheral angiopathy without gangrene; Z88.8 Allergy status to other drugs, medicaments and biological substances; E66.9 Obesity, unspecified; Z87.891 Personal history of nicotine dependence; Z82.49 Family history of ischemic heart disease and other diseases of the circulatory system; Z79.899 Other long term (current) drug therapy; Z79.02 Long term (current) use of antithrombotics/antiplatelets; J96.01 Acute respiratory failure with hypoxia; Z68.31 Body mass index [BMI] 31.0-31.9, adult

== ENCOUNTER 2020-05-24 15:29 | Inpatient (IN) | payer OTHER ==
[~2020-05-24] VITALS: Ht 177.8 cm; Wt 94.0 kg
[2020-05-24 15:44] VITALS: BP 166/59
[2020-05-24 16:44] LABS: BASO % 0.3 % (0.0-1.0); EOS # 0.1 10*3/uL (0.0-0.4); EOS % 1.5 % (1.0-4.0); HEMATOCRIT 29.5 % (42.0-52.0); LYMPH # 1.2 10*3/uL (1.3-4.4); LYMPH % 12.2 % (27.0-41.0); MEAN CELL VOLUME 76.8 fl (80.0-94.0); MEAN CORPUSCULAR HGB 22.4 pg (27.0-31.0); MEAN CORPUSCULAR HGB CONC 29.2 g/dl (33.0-37.0); MEAN PLATELET VOLUME 10.4 fl (9.6-12.3); MONO # 0.8 10*3/uL (0.1-1.0); MONO % 8.5 % (3.0-9.0); NEUT # 7.4 10*3/uL (2.3-7.9); NEUT % 77.1 % (47.0-73.0); PLATELET COUNT AUTOMATED 472 10*3/uL (130-400); RED BLOOD COUNT 3.84 10*6/uL (4.50-5.90); RED CELL DISTRI WIDTH 16.9 % (0-14.5); WHITE BLOOD COUNT 9.5 10*3/uL (4.8-10.8)
[2020-05-24 17:00] LABS: ALBUMIN 1.6 gm/dl (3.1-4.5); ALKALINE PHOSPHATASE 126 U/L (45-117); BUN 16 mg/dl (7-24); CHLORIDE 105 mmol/L (98-107); POTASSIUM 4.6 mmol/L (3.5-5.1); SGOT/AST 6 IU/L (3-35); SGPT/ALT 9 U/L (12-78); SODIUM 137 mmol/L (136-145); TOTAL PROTEIN 6.3 gm/dL (6.4-8.2)
[2020-05-24 17:21] VITALS: BP 158/72
[2020-05-24 19:42] VITALS: BP 144/76
[2020-05-24 20:45] VITALS: BP 191/75
[2020-05-25] VITALS: BP 196/69
[2020-05-25 07:09] LABS: BASO # 0.1 10*3/uL (0.0-0.1); BASO % 0.5 % (0.0-1.0); EOS # 0.2 10*3/uL (0.0-0.4); HEMATOCRIT 29.7 % (42.0-52.0); LYMPH # 1.9 10*3/uL (1.3-4.4); LYMPH % 15.9 % (27.0-41.0); MEAN CELL VOLUME 76.9 fl (80.0-94.0); MEAN CORPUSCULAR HGB CONC 28.6 g/dl (33.0-37.0); MEAN PLATELET VOLUME 10.4 fl (9.6-12.3); MONO # 1.1 10*3/uL (0.1-1.0); MONO % 9.5 % (3.0-9.0); NEUT # 8.6 10*3/uL (2.3-7.9); NEUT % 71.5 % (47.0-73.0); PLATELET COUNT AUTOMATED 456 10*3/uL (130-400); RED BLOOD COUNT 3.86 10*6/uL (4.50-5.90); RED CELL DISTRI WIDTH 17.2 % (0-14.5)
[2020-05-25 07:19] LABS: ACT PARTIAL THROMBO TIME 34.7 SECONDS (20.0-32.1); INTERNATIONAL NORM RATIO 1.1 (2.0-3.5)
[2020-05-25 07:23] LABS: ALBUMIN 1.5 gm/dl (3.1-4.5); ALKALINE PHOSPHATASE 94 U/L (45-117); BUN 14 mg/dl (7-24); CHLORIDE 108 mmol/L (98-107); CREATININE 0.89 mg/dL (0.70-1.30); POTASSIUM 3.8 mmol/L (3.5-5.1); SGOT/AST 7 IU/L (3-35); SGPT/ALT 8 U/L (12-78); SODIUM 141 mmol/L (136-145); TOTAL PROTEIN 5.9 gm/dL (6.4-8.2)
[2020-05-25 08:00] VITALS: BP 134/54
[2020-05-25 12:00] VITALS: BP 135/56
[2020-05-25 16:00] VITALS: BP 143/19; BP 171/71
[2020-05-25 20:00] VITALS: BP 172/84
[2020-05-26] VITALS: BP 118/79
[2020-05-26 06:29] LABS: BASO # 0.1 10*3/uL (0.0-0.1); BASO % 0.6 % (0.0-1.0); EOS # 0.2 10*3/uL (0.0-0.4); EOS % 1.7 % (1.0-4.0); HEMATOCRIT 33.5 % (42.0-52.0); LYMPH # 1.8 10*3/uL (1.3-4.4); LYMPH % 15.2 % (27.0-41.0); MEAN CELL VOLUME 77.2 fl (80.0-94.0); MEAN CORPUSCULAR HGB 21.9 pg (27.0-31.0); MEAN CORPUSCULAR HGB CONC 28.4 g/dl (33.0-37.0); MEAN PLATELET VOLUME 10.3 fl (9.6-12.3); MONO % 8.4 % (3.0-9.0); NEUT # 8.6 10*3/uL (2.3-7.9); NEUT % 73.5 % (47.0-73.0); PLATELET COUNT AUTOMATED 490 10*3/uL (130-400); RED BLOOD COUNT 4.34 10*6/uL (4.50-5.90); RED CELL DISTRI WIDTH 17.2 % (0-14.5); WHITE BLOOD COUNT 11.7 10*3/uL (4.8-10.8)
[2020-05-26 06:43] LABS: BUN 15 mg/dl (7-24); CHLORIDE 105 mmol/L (98-107); CREATININE 0.85 mg/dL (0.70-1.30); POTASSIUM 3.7 mmol/L (3.5-5.1); SODIUM 139 mmol/L (136-145)
[2020-05-26 08:00] VITALS: BP 150/50
[2020-05-26 12:00] VITALS: BP 142/67
[2020-05-26 16:00] VITALS: BP 128/81
[2020-05-26 20:00] VITALS: BP 153/96
[2020-05-27] VITALS: BP 169/68
[2020-05-27 06:23] LABS: BASO % 0.3 % (0.0-1.0); EOS # 0.3 10*3/uL (0.0-0.4); EOS % 2.8 % (1.0-4.0); HEMATOCRIT 29.7 % (42.0-52.0); LYMPH # 2.3 10*3/uL (1.3-4.4); LYMPH % 19.6 % (27.0-41.0); MEAN CELL VOLUME 76.7 fl (80.0-94.0); MEAN CORPUSCULAR HGB CONC 28.6 g/dl (33.0-37.0); MEAN PLATELET VOLUME 9.6 fl (9.6-12.3); MONO # 1.2 10*3/uL (0.1-1.0); MONO % 10.2 % (3.0-9.0); NEUT # 7.7 10*3/uL (2.3-7.9); NEUT % 66.6 % (47.0-73.0); PLATELET COUNT AUTOMATED 426 10*3/uL (130-400); RED BLOOD COUNT 3.87 10*6/uL (4.50-5.90); RED CELL DISTRI WIDTH 17.4 % (0-14.5); WHITE BLOOD COUNT 11.6 10*3/uL (4.8-10.8)
[2020-05-27 06:37] LABS: BUN 17 mg/dl (7-24); CHLORIDE 106 mmol/L (98-107); CREATININE 1.14 mg/dL (0.70-1.30); POTASSIUM 4.3 mmol/L (3.5-5.1); SODIUM 139 mmol/L (136-145)
[2020-05-27 08:00] VITALS: BP 122/60
[2020-05-27 12:00] VITALS: BP 134/69
[2020-05-27 16:00] VITALS: BP 148/69
[2020-05-27 20:00] VITALS: BP 171/56
[2020-05-28] VITALS: BP 155/57
[2020-05-28 06:30] LABS: BASO % 0.4 % (0.0-1.0); EOS # 0.3 10*3/uL (0.0-0.4); EOS % 2.8 % (1.0-4.0); HEMATOCRIT 29.8 % (42.0-52.0); LYMPH # 1.9 10*3/uL (1.3-4.4); LYMPH % 18.6 % (27.0-41.0); MEAN CELL VOLUME 76.4 fl (80.0-94.0); MEAN CORPUSCULAR HGB 22.1 pg (27.0-31.0); MEAN CORPUSCULAR HGB CONC 28.9 g/dl (33.0-37.0); MEAN PLATELET VOLUME 10.1 fl (9.6-12.3); MONO # 1.1 10*3/uL (0.1-1.0); MONO % 10.5 % (3.0-9.0); NEUT # 6.9 10*3/uL (2.3-7.9); NEUT % 67.1 % (47.0-73.0); PLATELET COUNT AUTOMATED 457 10*3/uL (130-400); RED CELL DISTRI WIDTH 17.1 % (0-14.5); WHITE BLOOD COUNT 10.3 10*3/uL (4.8-10.8)
[2020-05-28 06:40] LABS: BUN 20 mg/dl (7-24); CHLORIDE 103 mmol/L (98-107); CREATININE 0.99 mg/dL (0.70-1.30); POTASSIUM 4.1 mmol/L (3.5-5.1); SODIUM 137 mmol/L (136-145)
[2020-05-28 08:00] VITALS: BP 156/65
[2020-05-28 12:00] VITALS: BP 153/55
[2020-05-28 16:00] VITALS: BP 133/55
[2020-05-28 20:00] VITALS: BP 149/60
[2020-05-29] VITALS: BP 175/59
[2020-05-29 06:01] LABS: BUN 23 mg/dl (7-24); CHLORIDE 106 mmol/L (98-107); CREATININE 0.89 mg/dL (0.70-1.30); POTASSIUM 4.1 mmol/L (3.5-5.1); SODIUM 138 mmol/L (136-145)
[2020-05-29 06:08] LABS: BASO % 0.4 % (0.0-1.0); EOS # 0.3 10*3/uL (0.0-0.4); EOS % 2.8 % (1.0-4.0); HEMATOCRIT 29.1 % (42.0-52.0); LYMPH # 2.1 10*3/uL (1.3-4.4); LYMPH % 18.8 % (27.0-41.0); MEAN CELL VOLUME 76.8 fl (80.0-94.0); MEAN CORPUSCULAR HGB 22.2 pg (27.0-31.0); MEAN CORPUSCULAR HGB CONC 28.9 g/dl (33.0-37.0); MONO # 1.2 10*3/uL (0.1-1.0); MONO % 10.1 % (3.0-9.0); NEUT # 7.7 10*3/uL (2.3-7.9); NEUT % 67.4 % (47.0-73.0); PLATELET COUNT AUTOMATED 461 10*3/uL (130-400); RED BLOOD COUNT 3.79 10*6/uL (4.50-5.90); RED CELL DISTRI WIDTH 17.2 % (0-14.5); WHITE BLOOD COUNT 11.4 10*3/uL (4.8-10.8)
[2020-05-29 08:00] VITALS: BP 158/70
[2020-05-29 08:53] VITALS: BP 186/46
[2020-05-29 11:35] VITALS: BP 113/54
[2020-05-29] MEDS ORDERED: AUGMENTIN 875875 MG PO (13:19)
[2020-05-29 15:59] VITALS: BP 134/60
[2020-05-29 20:00] VITALS: BP 152/55
[2020-05-30] VITALS: BP 156/64
[2020-05-30 06:27] LABS: BASO % 0.4 % (0.0-1.0); EOS # 0.3 10*3/uL (0.0-0.4); EOS % 3.2 % (1.0-4.0); HEMATOCRIT 28.3 % (42.0-52.0); LYMPH # 2.2 10*3/uL (1.3-4.4); MEAN CELL VOLUME 75.9 fl (80.0-94.0); MEAN CORPUSCULAR HGB 22.3 pg (27.0-31.0); MEAN CORPUSCULAR HGB CONC 29.3 g/dl (33.0-37.0); MEAN PLATELET VOLUME 9.9 fl (9.6-12.3); MONO # 1.1 10*3/uL (0.1-1.0); MONO % 10.8 % (3.0-9.0); NEUT # 6.6 10*3/uL (2.3-7.9); NEUT % 63.9 % (47.0-73.0); PLATELET COUNT AUTOMATED 458 10*3/uL (130-400); RED BLOOD COUNT 3.73 10*6/uL (4.50-5.90); WHITE BLOOD COUNT 10.4 10*3/uL (4.8-10.8)
[2020-05-30 08:00] VITALS: BP 148/68
[2020-05-30 12:00] VITALS: BP 140/53
[2020-05-30 16:00] VITALS: BP 127/50
[2020-05-30 20:00] VITALS: BP 127/42
[2020-05-31] VITALS: BP 141/69
[2020-05-31 08:00] VITALS: BP 145/82
== END 2020-05-31 08:15 | disposition short-term general hospital (02) | DRG 383 ==
LOC: ED 15:29 → EDHOLD 16:59 → 5E 16:59
PROVIDERS: Hospitalist; Internal Medicine; Nurse Practitioner; Student in an Organized Health Care Education/Training Program; ADMIT Family Medicine; ATTEND Family Medicine
DX: L03.116 Cellulitis of left lower limb (principal); D50.9 Iron deficiency anemia, unspecified; I50.9 Heart failure, unspecified; E43 Unspecified severe protein-calorie malnutrition; E78.5 Hyperlipidemia, unspecified; Z20.822 Contact with and (suspected) exposure to COVID-19; E11.42 Type 2 diabetes mellitus with diabetic polyneuropathy; E11.65 Type 2 diabetes mellitus with hyperglycemia; K21.9 Gastro-esophageal reflux disease without esophagitis; I11.0 Hypertensive heart disease with heart failure; B95.8 Unspecified staphylococcus as the cause of diseases classified elsewhere; I87.8 Other specified disorders of veins; E11.51 Type 2 diabetes mellitus with diabetic peripheral angiopathy without gangrene; M54.5 Low back pain; G89.29 Other chronic pain; E55.9 Vitamin D deficiency, unspecified; I25.10 Atherosclerotic heart disease of native coronary artery without angina pectoris; L89.623 Pressure ulcer of left heel, stage 3; Z79.4 Long term (current) use of insulin; Z87.891 Personal history of nicotine dependence; Z88.8 Allergy status to other drugs, medicaments and biological substances; Z79.1 Long term (current) use of non-steroidal anti-inflammatories (NSAID); Z79.899 Other long term (current) drug therapy

== ENCOUNTER 2020-06-20 02:14 | Inpatient (IN) | payer OTHER ==
[2020-06-20] VITALS (10 sets, daily range): BP systolic 154–191; BP diastolic 52–89
[~2020-06-20] VITALS: Ht 177.8 cm; Wt 96.8 kg
[~2020-06-20 02:14] MED LIST changes: +AUGMENTIN 875875 MG PO
[2020-06-20 03:18] LABS: BASO % 0.3 % (0.0-1.0); EOS # 0.1 10*3/uL (0.0-0.4); LYMPH # 0.9 10*3/uL (1.3-4.4); LYMPH % 8.1 % (27.0-41.0); MEAN CELL VOLUME 74.6 fl (80.0-94.0); MEAN CORPUSCULAR HGB 21.5 pg (27.0-31.0); MEAN CORPUSCULAR HGB CONC 28.9 g/dl (33.0-37.0); MONO # 0.6 10*3/uL (0.1-1.0); MONO % 5.5 % (3.0-9.0); NEUT % 84.3 % (47.0-73.0); PLATELET COUNT AUTOMATED 417 10*3/uL (130-400); RED BLOOD COUNT 3.62 10*6/uL (4.50-5.90); RED CELL DISTRI WIDTH 16.9 % (0-14.5); WHITE BLOOD COUNT 10.6 10*3/uL (4.8-10.8)
[2020-06-20 03:31] LABS: INTERNATIONAL NORM RATIO 1.1 (2.0-3.5)
[2020-06-20 03:37] LABS: ALBUMIN 1.6 gm/dl (3.1-4.5); ALKALINE PHOSPHATASE 148 U/L (45-117); BUN 20 mg/dl (7-24); CHLORIDE 108 mmol/L (98-107); CREATININE 0.91 mg/dL (0.70-1.30); POTASSIUM 3.5 mmol/L (3.5-5.1); SGOT/AST 10 IU/L (3-35); SGPT/ALT 13 U/L (12-78); SODIUM 140 mmol/L (136-145); TOTAL PROTEIN 6.8 gm/dL (6.4-8.2)
[2020-06-21] VITALS (8 sets, daily range): BP systolic 141–187; BP diastolic 57–77
[2020-06-21 06:14] LABS: CHLORIDE 109 mmol/L (98-107); POTASSIUM 3.3 mmol/L (3.5-5.1); SODIUM 141 mmol/L (136-145)
[2020-06-21 06:28] LABS: BASO % 0.3 % (0.0-1.0); EOS # 0.2 10*3/uL (0.0-0.4); EOS % 1.7 % (1.0-4.0); HEMATOCRIT 25.6 % (42.0-52.0); LYMPH # 1.8 10*3/uL (1.3-4.4); LYMPH % 17.8 % (27.0-41.0); MEAN CELL VOLUME 73.6 fl (80.0-94.0); MEAN CORPUSCULAR HGB 21.3 pg (27.0-31.0); MEAN CORPUSCULAR HGB CONC 28.9 g/dl (33.0-37.0); MEAN PLATELET VOLUME 9.6 fl (9.6-12.3); MONO # 0.7 10*3/uL (0.1-1.0); MONO % 7.1 % (3.0-9.0); NEUT # 7.4 10*3/uL (2.3-7.9); NEUT % 72.6 % (47.0-73.0); PLATELET COUNT AUTOMATED 426 10*3/uL (130-400); RED BLOOD COUNT 3.48 10*6/uL (4.50-5.90); RED CELL DISTRI WIDTH 17.2 % (0-14.5); WHITE BLOOD COUNT 10.2 10*3/uL (4.8-10.8)
[2020-06-21 06:35] LABS: ALBUMIN 1.6 gm/dl (3.1-4.5); ALKALINE PHOSPHATASE 130 U/L (45-117); BUN 16 mg/dl (7-24); CREATININE 0.76 mg/dL (0.70-1.30); SGOT/AST 9 IU/L (3-35); SGPT/ALT 11 U/L (12-78); TOTAL PROTEIN 6.2 gm/dL (6.4-8.2)
[2020-06-22] VITALS (7 sets, daily range): BP systolic 112–187; BP diastolic 51–80
[2020-06-23] VITALS: BP 166/76
[2020-06-23 06:31] LABS: BASO % 0.3 % (0.0-1.0); EOS # 0.3 10*3/uL (0.0-0.4); EOS % 2.5 % (1.0-4.0); HEMATOCRIT 27.6 % (42.0-52.0); LYMPH # 1.6 10*3/uL (1.3-4.4); LYMPH % 15.2 % (27.0-41.0); MEAN CELL VOLUME 73.2 fl (80.0-94.0); MEAN CORPUSCULAR HGB 21.2 pg (27.0-31.0); MEAN PLATELET VOLUME 8.9 fl (9.6-12.3); MONO # 1.1 10*3/uL (0.1-1.0); MONO % 10.4 % (3.0-9.0); NEUT # 7.4 10*3/uL (2.3-7.9); NEUT % 71.1 % (47.0-73.0); PLATELET COUNT AUTOMATED 415 10*3/uL (130-400); RED BLOOD COUNT 3.77 10*6/uL (4.50-5.90); RED CELL DISTRI WIDTH 18.2 % (0-14.5); WHITE BLOOD COUNT 10.5 10*3/uL (4.8-10.8)
[2020-06-23 06:57] LABS: BUN 21 mg/dl (7-24); CHLORIDE 107 mmol/L (98-107); CREATININE 0.99 mg/dL (0.70-1.30); SODIUM 140 mmol/L (136-145)
[2020-06-23 08:00] VITALS: BP 160/51
[2020-06-23 12:00] VITALS: BP 131/53
[2020-06-23 14:25] LABS: BUN 22 mg/dl (7-24); CHLORIDE 106 mmol/L (98-107); CREATININE 1.02 mg/dL (0.70-1.30); POTASSIUM 3.9 mmol/L (3.5-5.1); SODIUM 140 mmol/L (136-145)
[2020-06-23 16:00] VITALS: BP 108/48
[2020-06-23 20:00] VITALS: BP 133/51
[2020-06-24] VITALS: BP 147/57
[2020-06-24 06:45] LABS: BASO % 0.4 % (0.0-1.0); EOS # 0.3 10*3/uL (0.0-0.4); EOS % 2.8 % (1.0-4.0); HEMATOCRIT 28.1 % (42.0-52.0); LYMPH # 1.7 10*3/uL (1.3-4.4); LYMPH % 17.1 % (27.0-41.0); MEAN CELL VOLUME 75.5 fl (80.0-94.0); MEAN CORPUSCULAR HGB 21.5 pg (27.0-31.0); MEAN CORPUSCULAR HGB CONC 28.5 g/dl (33.0-37.0); MEAN PLATELET VOLUME 9.5 fl (9.6-12.3); MONO # 1.1 10*3/uL (0.1-1.0); MONO % 10.9 % (3.0-9.0); NEUT # 6.7 10*3/uL (2.3-7.9); NEUT % 68.1 % (47.0-73.0); PLATELET COUNT AUTOMATED 424 10*3/uL (130-400); RED BLOOD COUNT 3.72 10*6/uL (4.50-5.90); RED CELL DISTRI WIDTH 18.7 % (0-14.5); WHITE BLOOD COUNT 9.8 10*3/uL (4.8-10.8)
[2020-06-24 07:08] LABS: BUN 22 mg/dl (7-24); CHLORIDE 105 mmol/L (98-107); CREATININE 1.04 mg/dL (0.70-1.30); SODIUM 141 mmol/L (136-145)
[2020-06-24 08:00] VITALS: BP 145/62
[2020-06-24 12:00] VITALS: BP 136/58
[2020-06-24] MEDS ORDERED: LEVOFLOXACIN750 M2 PO (13:24)
[2020-06-24 15:07] LABS: ACID FAST SPEC PROCESSING Tissue Grinding (.)
[2020-06-24 21:12] VITALS: BP 163/35
[2020-06-25] VITALS: BP 171/66
[2020-06-25 06:33] LABS: BUN 24 mg/dl (7-24); CHLORIDE 104 mmol/L (98-107); CREATININE 1.04 mg/dL (0.70-1.30); POTASSIUM 4.3 mmol/L (3.5-5.1); SODIUM 139 mmol/L (136-145)
[2020-06-25 08:00] VITALS: BP 129/64
[2020-06-25 12:00] VITALS: BP 122/46
[2020-06-25 16:00] VITALS: BP 135/46
[2020-06-25 20:19] VITALS: BP 138/55
[2020-06-25 23:53] VITALS: BP 145/70
[2020-06-26 08:00] VITALS: BP 111/61
[2020-06-26 12:00] VITALS: BP 108/48
[2020-06-26 16:00] VITALS: BP 117/54
[2020-06-26 20:00] VITALS: BP 113/42
[2020-06-27] VITALS: BP 149/56
[2020-06-27 06:20] LABS: BASO % 0.3 % (0.0-1.0); EOS # 0.2 10*3/uL (0.0-0.4); EOS % 2.1 % (1.0-4.0); LYMPH # 1.5 10*3/uL (1.3-4.4); LYMPH % 17.4 % (27.0-41.0); MEAN CELL VOLUME 74.3 fl (80.0-94.0); MEAN CORPUSCULAR HGB 21.1 pg (27.0-31.0); MEAN CORPUSCULAR HGB CONC 28.5 g/dl (33.0-37.0); MEAN PLATELET VOLUME 10.2 fl (9.6-12.3); MONO # 1.3 10*3/uL (0.1-1.0); MONO % 15.2 % (3.0-9.0); NEUT # 5.6 10*3/uL (2.3-7.9); NEUT % 64.4 % (47.0-73.0); PLATELET COUNT AUTOMATED 420 10*3/uL (130-400); RED CELL DISTRI WIDTH 18.9 % (0-14.5); WHITE BLOOD COUNT 8.7 10*3/uL (4.8-10.8)
[2020-06-27 06:29] LABS: CREATININE 1.47 mg/dL (0.70-1.30)
[2020-06-27 08:04] VITALS: BP 113/75
[2020-06-27 11:57] VITALS: BP 98/77
[2020-06-27] MEDS ORDERED: METHADONE HCL10 MG PO (12:05)
[2020-06-27] MEDS ORDERED: LYRICA200 M1 PO (12:05)
== END 2020-06-27 14:37 | DRG 951 ==
LOC: ED 02:14 → 5E 06:35 → EDHOLD 06:35 → 5E 06-21 08:20
PROVIDERS: Emergency Medicine; Family Medicine; Internal Medicine; Podiatrist; ADMIT Emergency Medicine; ATTEND Emergency Medicine
PROC: 0JB90ZZ Excision of Buttock Subcutaneous Tissue and Fascia, Open Approach (ICD-10-PCS; principal; 2020-06-22)
PROC: 0QBM0ZX Excision of Left Tarsal, Open Approach, Diagnostic (ICD-10-PCS; 2020-06-22)
PROC: 0HRNXK3 Replacement of Left Foot Skin with Nonautologous Tissue Substitute, Full Thickness, External Approach (ICD-10-PCS; 2020-06-22)
PROC: 2W1RX6Z Compression of Left Lower Leg using Pressure Dressing (ICD-10-PCS; 2020-06-22)
DX: E11.51 Type 2 diabetes mellitus with diabetic peripheral angiopathy without gangrene (principal); I50.33 Acute on chronic diastolic (congestive) heart failure; L89.620 Pressure ulcer of left heel, unstageable; E11.65 Type 2 diabetes mellitus with hyperglycemia; J96.01 Acute respiratory failure with hypoxia; Z20.822 Contact with and (suspected) exposure to COVID-19; K21.9 Gastro-esophageal reflux disease without esophagitis; D50.9 Iron deficiency anemia, unspecified; E43 Unspecified severe protein-calorie malnutrition; I25.10 Atherosclerotic heart disease of native coronary artery without angina pectoris; D69.6 Thrombocytopenia, unspecified; E66.9 Obesity, unspecified; L89.323 Pressure ulcer of left buttock, stage 3; G47.00 Insomnia, unspecified; E11.69 Type 2 diabetes mellitus with other specified complication; M86.8X7 Other osteomyelitis, ankle and foot; M54.9 Dorsalgia, unspecified; E78.5 Hyperlipidemia, unspecified; G89.29 Other chronic pain; E11.42 Type 2 diabetes mellitus with diabetic polyneuropathy; Z79.4 Long term (current) use of insulin; Z68.30 Body mass index [BMI] 30.0-30.9, adult; Z88.8 Allergy status to other drugs, medicaments and biological substances; Z87.891 Personal history of nicotine dependence; Z79.1 Long term (current) use of non-steroidal anti-inflammatories (NSAID)

== ENCOUNTER → 2020-08-19 | Outpatient (CLI) | payer OTHER ==
[~2020-08-19] MED LIST changes: +LEVOFLOXACIN750 M2 PO; +Methadone Hydro10 MG PO
== END | disposition home or self-care (01) ==
LOC: ORTHO 13:13
PROVIDERS: ATTEND Orthopaedic Surgery
DX: M17.11 Unilateral primary osteoarthritis, right knee (principal); M25.461 Effusion, right knee; M25.761 Osteophyte, right knee

== ENCOUNTER 2020-09-25 16:31 | Emergency (ER) | payer MEDICAID ==
[~2020-09-25] VITALS: Ht 177.8 cm; Wt 96.6 kg
[~2020-09-25 16:31] MED LIST changes: -Methadone Hydro10 MG PO
[2020-09-25 16:34] VITALS: BP 180/76
== END 2020-09-25 18:51 | disposition home or self-care (01) ==
LOC: ED 16:31
DX: F19.939 Other psychoactive substance use, unspecified with withdrawal, unspecified (principal); Z76.0 Encounter for issue of repeat prescription; R25.1 Tremor, unspecified; Z88.8 Allergy status to other drugs, medicaments and biological substances; Z79.899 Other long term (current) drug therapy; Z79.2 Long term (current) use of antibiotics; Z79.4 Long term (current) use of insulin; Z98.890 Other specified postprocedural states; Z87.891 Personal history of nicotine dependence

== ENCOUNTER 2020-10-09 21:28 | Inpatient (IN) | payer MEDICAID ==
[~2020-10-09] VITALS: Ht 177.8 cm; Wt 99.8 kg
[2020-10-09 21:31] VITALS: BP 216/100
[2020-10-09 21:42] LABS: BASO # 0.1 10*3/uL (0.0-0.1); BASO % 0.5 % (0.0-1.0); EOS # 0.3 10*3/uL (0.0-0.4); EOS % 2.4 % (1.0-4.0); HEMATOCRIT 34.5 % (42.0-52.0); LYMPH # 1.9 10*3/uL (1.3-4.4); LYMPH % 15.3 % (27.0-41.0); MEAN CELL VOLUME 73.4 fl (80.0-94.0); MEAN CORPUSCULAR HGB 20.2 pg (27.0-31.0); MEAN CORPUSCULAR HGB CONC 27.5 g/dl (33.0-37.0); MEAN PLATELET VOLUME 9.9 fl (9.6-12.3); MONO # 1.1 10*3/uL (0.1-1.0); MONO % 9.2 % (3.0-9.0); NEUT # 8.8 10*3/uL (2.3-7.9); NEUT % 71.8 % (47.0-73.0); PLATELET COUNT AUTOMATED 391 10*3/uL (130-400); RED CELL DISTRI WIDTH 19.7 % (0-14.5); WHITE BLOOD COUNT 12.2 10*3/uL (4.8-10.8)
[2020-10-09 22:05] LABS: ALKALINE PHOSPHATASE 156 U/L (45-117); BUN 12 mg/dl (7-24); CHLORIDE 104 mmol/L (98-107); SGOT/AST 13 IU/L (3-35); SGPT/ALT 19 U/L (12-78); SODIUM 137 mmol/L (136-145); TOTAL PROTEIN 6.8 gm/dL (6.4-8.2)
[2020-10-09 22:32] LABS: TROPONIN I < 0.015 ng/ml (<0.045)
[2020-10-09 22:38] VITALS: BP 131/51
[2020-10-10] VITALS (10 sets, daily range): BP systolic 122–182; BP diastolic 45–82
[2020-10-10 04:04] LABS: ALBUMIN 1.7 gm/dl (3.1-4.5); ALKALINE PHOSPHATASE 127 U/L (45-117); BUN 16 mg/dl (7-24); CHLORIDE 106 mmol/L (98-107); SGOT/AST 12 IU/L (3-35); SGPT/ALT 19 U/L (12-78); SODIUM 138 mmol/L (136-145)
[2020-10-10 04:14] LABS: POTASSIUM 5.3 mmol/L (3.5-5.1)
[2020-10-10 04:22] LABS: BASO % 0.2 % (0.0-1.0); EOS % 0.2 % (1.0-4.0); HEMATOCRIT 28.8 % (42.0-52.0); LYMPH % 8.3 % (27.0-41.0); MEAN CELL VOLUME 74.4 fl (80.0-94.0); MEAN CORPUSCULAR HGB 20.4 pg (27.0-31.0); MEAN CORPUSCULAR HGB CONC 27.4 g/dl (33.0-37.0); MEAN PLATELET VOLUME 10.6 fl (9.6-12.3); MONO % 7.8 % (3.0-9.0); NEUT % 82.9 % (47.0-73.0); PLATELET COUNT AUTOMATED 322 10*3/uL (130-400); RED BLOOD COUNT 3.87 10*6/uL (4.50-5.90); RED CELL DISTRI WIDTH 19.5 % (0-14.5); WHITE BLOOD COUNT 12.1 10*3/uL (4.8-10.8)
[2020-10-10] MEDS ORDERED: Methadone Hydro10 MG PO ×3 (09:52→09:53)
[2020-10-10] MEDS ORDERED: LASIX40 MG PO (11:02)
[2020-10-11] VITALS (11 sets, daily range): BP systolic 100–157; BP diastolic 33–61
[2020-10-11 06:25] LABS: BASO % 0.4 % (0.0-1.0); EOS # 0.3 10*3/uL (0.0-0.4); EOS % 3.4 % (1.0-4.0); HEMATOCRIT 27.6 % (42.0-52.0); LYMPH # 1.6 10*3/uL (1.3-4.4); LYMPH % 16.5 % (27.0-41.0); MEAN CELL VOLUME 72.8 fl (80.0-94.0); MEAN CORPUSCULAR HGB 20.3 pg (27.0-31.0); MEAN CORPUSCULAR HGB CONC 27.9 g/dl (33.0-37.0); MEAN PLATELET VOLUME 10.7 fl (9.6-12.3); MONO % 10.1 % (3.0-9.0); NEUT # 6.5 10*3/uL (2.3-7.9); NEUT % 69.1 % (47.0-73.0); PLATELET COUNT AUTOMATED 305 10*3/uL (130-400); RED BLOOD COUNT 3.79 10*6/uL (4.50-5.90); RED CELL DISTRI WIDTH 19.2 % (0-14.5); WHITE BLOOD COUNT 9.4 10*3/uL (4.8-10.8)
[2020-10-11 06:38] LABS: BUN 14 mg/dl (7-24); CHLORIDE 106 mmol/L (98-107); CREATININE 0.74 mg/dL (0.70-1.30); POTASSIUM 4.1 mmol/L (3.5-5.1); SODIUM 138 mmol/L (136-145)
[2020-10-11 18:14] LABS: BASO # 0.1 10*3/uL (0.0-0.1); BASO % 0.6 % (0.0-1.0); EOS # 0.3 10*3/uL (0.0-0.4); EOS % 3.4 % (1.0-4.0); HEMATOCRIT 30.9 % (42.0-52.0); LYMPH # 1.3 10*3/uL (1.3-4.4); LYMPH % 15.2 % (27.0-41.0); MEAN CELL VOLUME 74.8 fl (80.0-94.0); MEAN CORPUSCULAR HGB 21.3 pg (27.0-31.0); MEAN CORPUSCULAR HGB CONC 28.5 g/dl (33.0-37.0); MEAN PLATELET VOLUME 10.3 fl (9.6-12.3); MONO # 0.9 10*3/uL (0.1-1.0); MONO % 9.9 % (3.0-9.0); NEUT # 6.2 10*3/uL (2.3-7.9); NEUT % 70.6 % (47.0-73.0); PLATELET COUNT AUTOMATED 313 10*3/uL (130-400); RED BLOOD COUNT 4.13 10*6/uL (4.50-5.90); RED CELL DISTRI WIDTH 19.9 % (0-14.5); WHITE BLOOD COUNT 8.8 10*3/uL (4.8-10.8)
[2020-10-12] VITALS: BP 141/50
[2020-10-12 04:07] VITALS: BP 138/60
[2020-10-12 06:30] LABS: BASO % 0.4 % (0.0-1.0); EOS # 0.3 10*3/uL (0.0-0.4); EOS % 2.8 % (1.0-4.0); HEMATOCRIT 29.6 % (42.0-52.0); LYMPH # 1.2 10*3/uL (1.3-4.4); LYMPH % 13.5 % (27.0-41.0); MEAN CORPUSCULAR HGB 20.8 pg (27.0-31.0); MEAN PLATELET VOLUME 10.7 fl (9.6-12.3); MONO # 1.1 10*3/uL (0.1-1.0); MONO % 11.9 % (3.0-9.0); NEUT # 6.4 10*3/uL (2.3-7.9); NEUT % 71.1 % (47.0-73.0); PLATELET COUNT AUTOMATED 335 10*3/uL (130-400); RED CELL DISTRI WIDTH 19.9 % (0-14.5)
[2020-10-12 06:38] LABS: BUN 19 mg/dl (7-24); CHLORIDE 103 mmol/L (98-107); POTASSIUM 4.2 mmol/L (3.5-5.1); SODIUM 138 mmol/L (136-145)
[2020-10-12 08:00] VITALS: BP 108/46
[2020-10-12 12:00] VITALS: BP 111/52
[2020-10-12 16:00] VITALS: BP 111/39
[2020-10-12 20:00] VITALS: BP 128/44
[2020-10-13] VITALS: BP 120/44
[2020-10-13 07:05] LABS: BASO % 0.5 % (0.0-1.0); EOS # 0.2 10*3/uL (0.0-0.4); EOS % 2.8 % (1.0-4.0); HEMATOCRIT 29.8 % (42.0-52.0); LYMPH # 1.4 10*3/uL (1.3-4.4); LYMPH % 15.8 % (27.0-41.0); MEAN CELL VOLUME 75.3 fl (80.0-94.0); MEAN CORPUSCULAR HGB CONC 27.9 g/dl (33.0-37.0); MEAN PLATELET VOLUME 10.7 fl (9.6-12.3); MONO # 1.1 10*3/uL (0.1-1.0); NEUT # 5.8 10*3/uL (2.3-7.9); NEUT % 67.6 % (47.0-73.0); PLATELET COUNT AUTOMATED 311 10*3/uL (130-400); RED BLOOD COUNT 3.96 10*6/uL (4.50-5.90); RED CELL DISTRI WIDTH 20.4 % (0-14.5); WHITE BLOOD COUNT 8.6 10*3/uL (4.8-10.8)
[2020-10-13 07:17] LABS: BUN 25 mg/dl (7-24); CHLORIDE 105 mmol/L (98-107); CREATININE 1.05 mg/dL (0.70-1.30); POTASSIUM 4.1 mmol/L (3.5-5.1); SODIUM 140 mmol/L (136-145)
[2020-10-13 08:00] VITALS: BP 146/58
[2020-10-13 12:00] VITALS: BP 160/68
[2020-10-13 15:41] VITALS: BP 145/58
[2020-10-13 20:00] VITALS: BP 124/43
[2020-10-14] VITALS: BP 127/68
[2020-10-14 06:15] LABS: BASO % 0.5 % (0.0-1.0); EOS # 0.2 10*3/uL (0.0-0.4); EOS % 2.8 % (1.0-4.0); HEMATOCRIT 30.1 % (42.0-52.0); LYMPH # 1.6 10*3/uL (1.3-4.4); LYMPH % 19.3 % (27.0-41.0); MEAN CELL VOLUME 74.9 fl (80.0-94.0); MEAN CORPUSCULAR HGB 21.1 pg (27.0-31.0); MEAN CORPUSCULAR HGB CONC 28.2 g/dl (33.0-37.0); MEAN PLATELET VOLUME 10.6 fl (9.6-12.3); MONO # 1.1 10*3/uL (0.1-1.0); MONO % 13.6 % (3.0-9.0); NEUT # 5.2 10*3/uL (2.3-7.9); NEUT % 63.3 % (47.0-73.0); PLATELET COUNT AUTOMATED 340 10*3/uL (130-400); RED BLOOD COUNT 4.02 10*6/uL (4.50-5.90); RED CELL DISTRI WIDTH 20.5 % (0-14.5); WHITE BLOOD COUNT 8.2 10*3/uL (4.8-10.8)
[2020-10-14 06:25] LABS: BUN 32 mg/dl (7-24); CHLORIDE 105 mmol/L (98-107); CREATININE 1.26 mg/dL (0.70-1.30); POTASSIUM 4.4 mmol/L (3.5-5.1); SODIUM 141 mmol/L (136-145)
[2020-10-14 08:00] VITALS: BP 162/50
[2020-10-14] MEDS ORDERED: CARVEDILOL3.125 MG PO (12:27)
== END 2020-10-14 13:48 | disposition home or self-care (01) | DRG 194 ==
LOC: ED 21:28 → EDHOLD 10-10 03:27 → 4E 10-10 03:27
PROVIDERS: Hospitalist; Internal Medicine; ADMIT Family Medicine; ATTEND Family Medicine
PROC: 30233N1 Transfusion of Nonautologous Red Blood Cells into Peripheral Vein, Percutaneous Approach (ICD-10-PCS; principal; 2020-10-11)
PROC: 0HB8XZZ Excision of Buttock Skin, External Approach (ICD-10-PCS; 2020-10-12)
DX: I11.0 Hypertensive heart disease with heart failure (principal); I50.23 Acute on chronic systolic (congestive) heart failure; R65.10 Systemic inflammatory response syndrome (SIRS) of non-infectious origin without acute organ dysfunction; J91.8 Pleural effusion in other conditions classified elsewhere; E88.09 Other disorders of plasma-protein metabolism, not elsewhere classified; D50.9 Iron deficiency anemia, unspecified; R00.1 Bradycardia, unspecified; J96.01 Acute respiratory failure with hypoxia; D69.6 Thrombocytopenia, unspecified; E11.65 Type 2 diabetes mellitus with hyperglycemia; I16.1 Hypertensive emergency; I21.4 Non-ST elevation (NSTEMI) myocardial infarction; L89.320 Pressure ulcer of left buttock, unstageable; I25.10 Atherosclerotic heart disease of native coronary artery without angina pectoris; L03.116 Cellulitis of left lower limb; L89.313 Pressure ulcer of right buttock, stage 3; E43 Unspecified severe protein-calorie malnutrition; E11.69 Type 2 diabetes mellitus with other specified complication; E11.621 Type 2 diabetes mellitus with foot ulcer; L97.429 Non-pressure chronic ulcer of left heel and midfoot with unspecified severity; M86.8X7 Other osteomyelitis, ankle and foot; E11.40 Type 2 diabetes mellitus with diabetic neuropathy, unspecified; Z68.36 Body mass index [BMI] 36.0-36.9, adult; Z79.4 Long term (current) use of insulin; Z87.891 Personal history of nicotine dependence; Z95.5 Presence of coronary angioplasty implant and graft; Z88.8 Allergy status to other drugs, medicaments and biological substances

== ENCOUNTER 2020-11-02 23:56 | Inpatient (IN) | payer OTHER ==
[~2020-11-02] VITALS: Ht 177.8 cm; Wt 94.8 kg
[~2020-11-02 23:56] MED LIST changes: +Methadone Hydro10 MG PO
[2020-11-03] VITALS (14 sets, daily range): BP systolic 131–212; BP diastolic 49–88
[2020-11-03 00:11] LABS: BASO % 0.4 % (0.0-1.0); EOS # 0.2 10*3/uL (0.0-0.4); EOS % 2.3 % (1.0-4.0); HEMATOCRIT 33.9 % (42.0-52.0); LYMPH # 0.8 10*3/uL (1.3-4.4); LYMPH % 8.8 % (27.0-41.0); MEAN CELL VOLUME 72.6 fl (80.0-94.0); MEAN CORPUSCULAR HGB 19.9 pg (27.0-31.0); MEAN CORPUSCULAR HGB CONC 27.4 g/dl (33.0-37.0); MEAN PLATELET VOLUME 9.4 fl (9.6-12.3); MONO # 0.7 10*3/uL (0.1-1.0); MONO % 7.5 % (3.0-9.0); NEUT # 7.7 10*3/uL (2.3-7.9); NEUT % 80.2 % (47.0-73.0); PLATELET COUNT AUTOMATED 366 10*3/uL (130-400); RED BLOOD COUNT 4.67 10*6/uL (4.50-5.90); RED CELL DISTRI WIDTH 18.7 % (0-14.5); WHITE BLOOD COUNT 9.6 10*3/uL (4.8-10.8)
[2020-11-03 00:27] LABS: ALBUMIN 1.6 gm/dl (3.1-4.5); ALKALINE PHOSPHATASE 161 U/L (45-117); BUN 21 mg/dl (7-24); CHLORIDE 107 mmol/L (98-107); POTASSIUM 3.8 mmol/L (3.5-5.1); SGOT/AST 10 IU/L (3-35); SGPT/ALT 12 U/L (12-78); SODIUM 139 mmol/L (136-145); TOTAL PROTEIN 6.6 gm/dL (6.4-8.2)
[2020-11-03 06:17] LABS: BASO % 0.3 % (0.0-1.0); EOS # 0.1 10*3/uL (0.0-0.4); EOS % 1.5 % (1.0-4.0); HEMATOCRIT 31.1 % (42.0-52.0); LYMPH # 1.3 10*3/uL (1.3-4.4); LYMPH % 14.3 % (27.0-41.0); MEAN CORPUSCULAR HGB 19.9 pg (27.0-31.0); MEAN CORPUSCULAR HGB CONC 27.7 g/dl (33.0-37.0); MEAN PLATELET VOLUME 9.9 fl (9.6-12.3); MONO # 0.9 10*3/uL (0.1-1.0); MONO % 9.5 % (3.0-9.0); NEUT # 6.7 10*3/uL (2.3-7.9); NEUT % 73.7 % (47.0-73.0); PLATELET COUNT AUTOMATED 363 10*3/uL (130-400); RED BLOOD COUNT 4.32 10*6/uL (4.50-5.90); RED CELL DISTRI WIDTH 18.6 % (0-14.5); WHITE BLOOD COUNT 9.1 10*3/uL (4.8-10.8)
[2020-11-03 06:33] LABS: ALBUMIN 1.5 gm/dl (3.1-4.5); ALKALINE PHOSPHATASE 120 U/L (45-117); BUN 21 mg/dl (7-24); CHLORIDE 108 mmol/L (98-107); CREATININE 0.89 mg/dL (0.70-1.30); POTASSIUM 3.7 mmol/L (3.5-5.1); SGOT/AST 12 IU/L (3-35); SGPT/ALT 11 U/L (12-78); SODIUM 139 mmol/L (136-145); TOTAL PROTEIN 5.9 gm/dL (6.4-8.2)
[2020-11-04] VITALS: BP 180/72
[2020-11-04 06:15] VITALS: BP 150/72
[2020-11-04 06:22] LABS: BASO % 0.4 % (0.0-1.0); EOS # 0.2 10*3/uL (0.0-0.4); EOS % 2.1 % (1.0-4.0); HEMATOCRIT 31.6 % (42.0-52.0); LYMPH # 1.5 10*3/uL (1.3-4.4); LYMPH % 15.9 % (27.0-41.0); MEAN CELL VOLUME 70.1 fl (80.0-94.0); MEAN CORPUSCULAR HGB 20.2 pg (27.0-31.0); MEAN CORPUSCULAR HGB CONC 28.8 g/dl (33.0-37.0); MEAN PLATELET VOLUME 10.3 fl (9.6-12.3); MONO # 0.9 10*3/uL (0.1-1.0); MONO % 9.5 % (3.0-9.0); NEUT # 6.7 10*3/uL (2.3-7.9); NEUT % 70.8 % (47.0-73.0); PLATELET COUNT AUTOMATED 379 10*3/uL (130-400); RED BLOOD COUNT 4.51 10*6/uL (4.50-5.90); WHITE BLOOD COUNT 9.5 10*3/uL (4.8-10.8)
[2020-11-04 06:45] LABS: CHLORIDE 106 mmol/L (98-107); POTASSIUM 3.7 mmol/L (3.5-5.1); SODIUM 139 mmol/L (136-145)
[2020-11-04 06:55] LABS: BUN 18 mg/dl (7-24); CREATININE 0.76 mg/dL (0.70-1.30)
[2020-11-04 08:00] VITALS: BP 145/78
[2020-11-04 12:00] VITALS: BP 123/53
[2020-11-04 16:00] VITALS: BP 131/58
[2020-11-04 20:00] VITALS: BP 137/51
[2020-11-05] VITALS: BP 129/42
[2020-11-05 04:00] VITALS: BP 129/42
[2020-11-05 07:14] LABS: BASO % 0.4 % (0.0-1.0); EOS # 0.2 10*3/uL (0.0-0.4); EOS % 2.1 % (1.0-4.0); HEMATOCRIT 30.4 % (42.0-52.0); LYMPH # 1.5 10*3/uL (1.3-4.4); LYMPH % 16.5 % (27.0-41.0); MEAN CELL VOLUME 72.2 fl (80.0-94.0); MEAN CORPUSCULAR HGB CONC 27.6 g/dl (33.0-37.0); MEAN PLATELET VOLUME 10.2 fl (9.6-12.3); MONO # 1.2 10*3/uL (0.1-1.0); MONO % 13.2 % (3.0-9.0); NEUT # 6.2 10*3/uL (2.3-7.9); NEUT % 67.4 % (47.0-73.0); PLATELET COUNT AUTOMATED 353 10*3/uL (130-400); RED BLOOD COUNT 4.21 10*6/uL (4.50-5.90); RED CELL DISTRI WIDTH 19.2 % (0-14.5); WHITE BLOOD COUNT 9.3 10*3/uL (4.8-10.8)
[2020-11-05 07:54] LABS: BUN 24 mg/dl (7-24); CHLORIDE 104 mmol/L (98-107); CREATININE 1.04 mg/dL (0.70-1.30); SODIUM 140 mmol/L (136-145)
[2020-11-05 08:00] VITALS: BP 119/41
[2020-11-05 12:00] VITALS: BP 107/48
[2020-11-05 16:00] VITALS: BP 131/54
[2020-11-05 20:00] VITALS: BP 123/47
[2020-11-06] VITALS: BP 142/46
[2020-11-06 08:00] VITALS: BP 118/40
[2020-11-06 12:00] VITALS: BP 142/46
[2020-11-06 16:00] VITALS: BP 138/51
[2020-11-06 20:00] VITALS: BP 142/51
[2020-11-07] VITALS: BP 144/53
[2020-11-07 06:50] LABS: BASO % 0.5 % (0.0-1.0); EOS # 0.1 10*3/uL (0.0-0.4); EOS % 1.6 % (1.0-4.0); HEMATOCRIT 33.1 % (42.0-52.0); LYMPH # 1.2 10*3/uL (1.3-4.4); LYMPH % 15.4 % (27.0-41.0); MEAN CELL VOLUME 71.2 fl (80.0-94.0); MEAN CORPUSCULAR HGB CONC 28.1 g/dl (33.0-37.0); MEAN PLATELET VOLUME 10.1 fl (9.6-12.3); MONO % 12.4 % (3.0-9.0); NEUT # 5.3 10*3/uL (2.3-7.9); NEUT % 69.6 % (47.0-73.0); PLATELET COUNT AUTOMATED 348 10*3/uL (130-400); RED BLOOD COUNT 4.65 10*6/uL (4.50-5.90); RED CELL DISTRI WIDTH 19.4 % (0-14.5); WHITE BLOOD COUNT 7.7 10*3/uL (4.8-10.8)
[2020-11-07 07:08] LABS: ALBUMIN 1.7 gm/dl (3.1-4.5); CHLORIDE 101 mmol/L (98-107); CREATININE 1.26 mg/dL (0.70-1.30); POTASSIUM 4.1 mmol/L (3.5-5.1); SGOT/AST 7 IU/L (3-35); SGPT/ALT 12 U/L (12-78); SODIUM 139 mmol/L (136-145)
[2020-11-07 07:10] LABS: ALKALINE PHOSPHATASE 123 U/L (45-117); TOTAL PROTEIN 6.3 gm/dL (6.4-8.2)
[2020-11-07 07:11] LABS: BUN 35 mg/dl (7-24)
[2020-11-07 08:00] VITALS: BP 113/62
[2020-11-07 12:00] VITALS: BP 92/53
[2020-11-07 16:00] VITALS: BP 103/60
[2020-11-07 20:09] VITALS: BP 109/49
[2020-11-08] VITALS: BP 129/56
[2020-11-08 08:00] VITALS: BP 108/42
[2020-11-08 12:00] VITALS: BP 116/58
[2020-11-08] MEDS ORDERED: BUMETANIDE1 MG PO (12:58)
[2020-11-08 16:00] VITALS: BP 124/37
== END 2020-11-08 19:50 | disposition home or self-care (01) | DRG 194 ==
LOC: ED 23:56 → EDHOLD 11-03 02:40 → 4E 11-03 02:40
PROVIDERS: Hospitalist; Internal Medicine; Registered Nurse; ADMIT Family Medicine; ATTEND Family Medicine
PROC: 0HB6XZZ Excision of Back Skin, External Approach (ICD-10-PCS; principal; 2020-11-04)
DX: I11.0 Hypertensive heart disease with heart failure (principal); I50.23 Acute on chronic systolic (congestive) heart failure; I16.1 Hypertensive emergency; J96.01 Acute respiratory failure with hypoxia; E44.0 Moderate protein-calorie malnutrition; L89.893 Pressure ulcer of other site, stage 3; E11.65 Type 2 diabetes mellitus with hyperglycemia; E11.51 Type 2 diabetes mellitus with diabetic peripheral angiopathy without gangrene; D50.9 Iron deficiency anemia, unspecified; Z20.822 Contact with and (suspected) exposure to COVID-19; E11.69 Type 2 diabetes mellitus with other specified complication; E78.2 Mixed hyperlipidemia; E55.9 Vitamin D deficiency, unspecified; E88.09 Other disorders of plasma-protein metabolism, not elsewhere classified; G47.00 Insomnia, unspecified; I95.9 Hypotension, unspecified; Z88.8 Allergy status to other drugs, medicaments and biological substances; Z79.4 Long term (current) use of insulin; Z87.891 Personal history of nicotine dependence; Z95.5 Presence of coronary angioplasty implant and graft; Z68.32 Body mass index [BMI] 32.0-32.9, adult

== ENCOUNTER → 2021-01-23 | Outpatient (CLI) | payer OTHER ==
[~2021-01-23] MED LIST changes: +BUMETANIDE1 MG PO; +Humalog SQ; +METRONIDAZOLE500 M1 PO; +TRAMADOL HCL50 MG PO; +VITAMIN D350 MC2 PO
== END ==
LOC: WOUNDCARE 08:04
PROVIDERS: ATTEND Nurse Practitioner Family
DX: T81.89XA Other complications of procedures, not elsewhere classified, initial encounter (principal); E11.622 Type 2 diabetes mellitus with other skin ulcer; L89.321 Pressure ulcer of left buttock, stage 1; L98.412 Non-pressure chronic ulcer of buttock with fat layer exposed; L89.222 Pressure ulcer of left hip, stage 2; L98.491 Non-pressure chronic ulcer of skin of other sites limited to breakdown of skin; E11.42 Type 2 diabetes mellitus with diabetic polyneuropathy; L03.115 Cellulitis of right lower limb; I11.0 Hypertensive heart disease with heart failure; I50.9 Heart failure, unspecified; G89.29 Other chronic pain; M54.9 Dorsalgia, unspecified; K21.9 Gastro-esophageal reflux disease without esophagitis; D64.9 Anemia, unspecified; Z87.891 Personal history of nicotine dependence; Z98.890 Other specified postprocedural states; Y83.8 Other surgical procedures as the cause of abnormal reaction of the patient, or of later complication, without mention of misadventure at the time of the procedure; Y92.238 Other place in hospital as the place of occurrence of the external cause

== ENCOUNTER 2021-05-10 09:14 | Inpatient (IN) | payer OTHER ==
[~2021-05-10] VITALS: Ht 177.8 cm; Wt 96.6 kg
[~2021-05-10 09:14] MED LIST changes: +AMLODIPINE BESYL5 MG PO; +CARVEDILOL6.25 MG PO; +ERTAPENEM1 GM IV; +LISINOPRIL20 MG PO; +VANC1PIG IV
[2021-05-10 09:25] VITALS: BP 141/42
[2021-05-10] MEDS ORDERED: BUMETANIDE2 MG PO (09:34)
[2021-05-10] MEDS ORDERED: VITAMIN D350 MC3 PO (09:37)
[2021-05-10] MEDS ORDERED: HUMALOG KW200 UNIT/1 SQ (09:40)
[2021-05-10] MEDS ORDERED: METHADONE HYDRO10 MG PO (09:41)
[2021-05-10 10:00] LABS: BASO % 0.4 % (0.0-1.0); EOS # 0.1 10*3/uL (0.0-0.4); EOS % 1.3 % (1.0-4.0); HEMATOCRIT 27.7 % (42.0-52.0); LYMPH # 0.9 10*3/uL (1.3-4.4); MEAN CELL VOLUME 75.5 fl (80.0-94.0); MEAN CORPUSCULAR HGB 22.3 pg (27.0-31.0); MEAN CORPUSCULAR HGB CONC 29.6 g/dl (33.0-37.0); MEAN PLATELET VOLUME 10.1 fl (9.6-12.3); MONO # 0.8 10*3/uL (0.1-1.0); MONO % 8.2 % (3.0-9.0); NEUT % 80.8 % (47.0-73.0); PLATELET COUNT AUTOMATED 271 10*3/uL (130-400); RED BLOOD COUNT 3.67 10*6/uL (4.50-5.90); RED CELL DISTRI WIDTH 19.4 % (0-14.5); WHITE BLOOD COUNT 9.9 10*3/uL (4.8-10.8)
[2021-05-10 10:15] LABS: CREATININE 1.45 mg/dL (0.70-1.30); TOTAL PROTEIN 5.9 gm/dL (6.4-8.2)
[2021-05-10 10:27] LABS: BILIRUBIN Negative (Negative); BLOOD Trace-Lysed (Negative); CLARITY Clear (Clear); COLOR Yellow (Yellow); GLUCOSE Trace (Negative); KETONE Negative (Negative); LEUKO ESTERASE Negative (Negative); NITRITE Negative (Negative); UROBILINOGEN 0.2 E.U./dl (0.0-1.0)
[2021-05-10 11:08] LABS: BACTERIA 1+; EPITHELIAL CELLS 0-2; MUCOUS 1+; YEAST 1+
[2021-05-10 14:00] VITALS: BP 135/47
[2021-05-10] MEDS ORDERED: HUMALOG100 UNIT/1 SC (16:59)
[2021-05-10 20:00] VITALS: BP 116/51
[2021-05-11] VITALS: BP 128/42
[2021-05-11 04:00] VITALS: BP 125/42
[2021-05-11 06:04] LABS: ALKALINE PHOSPHATASE 86 U/L (45-117); BUN 30 mg/dl (7-24); CHLORIDE 109 mmol/L (98-107); CREATININE 1.28 mg/dL (0.70-1.30); POTASSIUM 4.6 mmol/L (3.5-5.1); SGOT/AST 11 IU/L (3-35); SGPT/ALT 6 U/L (12-78); SODIUM 142 mmol/L (136-145); TOTAL PROTEIN 5.9 gm/dL (6.4-8.2)
[2021-05-11 06:38] LABS: BASO % 0.5 % (0.0-1.0); EOS # 0.6 10*3/uL (0.0-0.4); EOS % 6.4 % (1.0-4.0); HEMATOCRIT 26.8 % (42.0-52.0); LYMPH # 1.5 10*3/uL (1.3-4.4); LYMPH % 17.1 % (27.0-41.0); MEAN CELL VOLUME 77.2 fl (80.0-94.0); MEAN CORPUSCULAR HGB 22.5 pg (27.0-31.0); MEAN CORPUSCULAR HGB CONC 29.1 g/dl (33.0-37.0); MEAN PLATELET VOLUME 10.7 fl (9.6-12.3); NEUT # 5.6 10*3/uL (2.3-7.9); NEUT % 64.7 % (47.0-73.0); PLATELET COUNT AUTOMATED 271 10*3/uL (130-400); RED BLOOD COUNT 3.47 10*6/uL (4.50-5.90); RED CELL DISTRI WIDTH 19.5 % (0-14.5); WHITE BLOOD COUNT 8.7 10*3/uL (4.8-10.8)
[2021-05-11 08:00] VITALS: BP 130/46
[2021-05-11 12:00] VITALS: BP 124/48
[2021-05-11 16:00] VITALS: BP 148/52
[2021-05-11 20:00] VITALS: BP 146/48
[2021-05-11 21:06] LABS: ABG BASE EXCESS 5.1 mmol/L (-2.0-2.0); ARTERIAL BLOOD GAS PH 7.476 (7.35-7.45); ARTERIAL BLOOD GAS PO2 68.6 (80-90)
[2021-05-11 21:09] LABS: ALKALINE PHOSPHATASE 87 U/L (45-117); BUN 28 mg/dl (7-24); CHLORIDE 106 mmol/L (98-107); CREATININE 1.25 mg/dL (0.70-1.30); POTASSIUM 4.2 mmol/L (3.5-5.1); SGOT/AST 15 IU/L (3-35); SGPT/ALT 8 U/L (12-78); SODIUM 142 mmol/L (136-145); TOTAL PROTEIN 6.1 gm/dL (6.4-8.2)
[2021-05-12] VITALS: BP 150/43
[2021-05-12 04:00] VITALS: BP 145/45
[2021-05-12 06:13] LABS: BUN 25 mg/dl (7-24); CHLORIDE 108 mmol/L (98-107); POTASSIUM 3.7 mmol/L (3.5-5.1); SODIUM 142 mmol/L (136-145)
[2021-05-12 06:31] LABS: BASO # 0.1 10*3/uL (0.0-0.1); BASO % 0.6 % (0.0-1.0); EOS # 1.3 10*3/uL (0.0-0.4); HEMATOCRIT 25.9 % (42.0-52.0); LYMPH # 1.5 10*3/uL (1.3-4.4); LYMPH % 17.8 % (27.0-41.0); MEAN CELL VOLUME 75.3 fl (80.0-94.0); MEAN CORPUSCULAR HGB 22.4 pg (27.0-31.0); MEAN CORPUSCULAR HGB CONC 29.7 g/dl (33.0-37.0); MEAN PLATELET VOLUME 10.4 fl (9.6-12.3); MONO # 0.8 10*3/uL (0.1-1.0); MONO % 9.2 % (3.0-9.0); NEUT # 4.9 10*3/uL (2.3-7.9); NEUT % 57.1 % (47.0-73.0); PLATELET COUNT AUTOMATED 253 10*3/uL (130-400); RED BLOOD COUNT 3.44 10*6/uL (4.50-5.90); RED CELL DISTRI WIDTH 19.1 % (0-14.5); WHITE BLOOD COUNT 8.7 10*3/uL (4.8-10.8)
[2021-05-12 08:51] VITALS: BP 135/47
[2021-05-12 12:00] VITALS: BP 126/54
[2021-05-12] MEDS ORDERED: CUBICIN500 MG IV (13:36)
[2021-05-12] MEDS ORDERED: TEMAZEPAM15 M1 PO (14:55)
[2021-05-12] MEDS ORDERED: LYRICA200 M1 PO (14:55)
[2021-05-12] MEDS ORDERED: METHADONE HYDRO10 MG PO (14:55)
== END 2021-05-12 18:36 | DRG 52 ==
LOC: ED 09:14 → EDHOLD 13:07 → 5E 13:07
PROVIDERS: Emergency Medicine; Internal Medicine; ADMIT Internal Medicine; ATTEND Internal Medicine
PROC: 02HV33Z Insertion of Infusion Device into Superior Vena Cava, Percutaneous Approach (ICD-10-PCS; principal; 2021-05-11)
DX: G93.41 Metabolic encephalopathy (principal); N17.0 Acute kidney failure with tubular necrosis; E43 Unspecified severe protein-calorie malnutrition; D50.9 Iron deficiency anemia, unspecified; E11.65 Type 2 diabetes mellitus with hyperglycemia; R00.1 Bradycardia, unspecified; K21.9 Gastro-esophageal reflux disease without esophagitis; E78.5 Hyperlipidemia, unspecified; I11.0 Hypertensive heart disease with heart failure; G47.00 Insomnia, unspecified; I50.9 Heart failure, unspecified; E11.42 Type 2 diabetes mellitus with diabetic polyneuropathy; E11.51 Type 2 diabetes mellitus with diabetic peripheral angiopathy without gangrene; E11.69 Type 2 diabetes mellitus with other specified complication; M86.8X7 Other osteomyelitis, ankle and foot; E11.621 Type 2 diabetes mellitus with foot ulcer; L97.429 Non-pressure chronic ulcer of left heel and midfoot with unspecified severity; L97.419 Non-pressure chronic ulcer of right heel and midfoot with unspecified severity; R91.1 Solitary pulmonary nodule; G30.9 Alzheimer's disease, unspecified; F02.80 Dementia in other diseases classified elsewhere, unspecified severity, without behavioral disturbance, psychotic disturbance, mood disturbance, and anxiety; Z79.4 Long term (current) use of insulin; Z88.8 Allergy status to other drugs, medicaments and biological substances; Z79.899 Other long term (current) drug therapy; Z68.30 Body mass index [BMI] 30.0-30.9, adult

== ENCOUNTER 2021-05-19 15:40 | Emergency (ER) | payer OTHER ==
[~2021-05-19] VITALS: Ht 182.8 cm; Wt 97.5 kg
[~2021-05-19 15:40] MED LIST changes: +BUMETANIDE2 MG PO; +CUBICIN500 MG IV; +HUMALOG KW200 UNIT/1 SQ; +HUMALOG100 UNIT/1 SC; +METHADONE HYDRO10 MG PO; +VITAMIN D350 MC3 PO
[2021-05-19 15:47] VITALS: BP 154/53
[2021-05-19 16:08] LABS: BILIRUBIN Negative (Negative); BLOOD Negative (Negative); CLARITY Clear (Clear); COLOR Yellow (Yellow); GLUCOSE Negative (Negative); KETONE Negative (Negative); LEUKO ESTERASE Negative (Negative); NITRITE Negative (Negative); PH 7.5 (4.5-8.0); SPECIFIC GRAVITY 1.015 (1.001-1.030); UROBILINOGEN 0.2 E.U./dl (0.0-1.0)
[2021-05-19 16:11] LABS: BASO % 0.3 % (0.0-1.0); EOS # 0.2 10*3/uL (0.0-0.4); EOS % 1.6 % (1.0-4.0); HEMATOCRIT 29.5 % (42.0-52.0); LYMPH # 0.9 10*3/uL (1.3-4.4); LYMPH % 10.1 % (27.0-41.0); MEAN CORPUSCULAR HGB 22.7 pg (27.0-31.0); MEAN CORPUSCULAR HGB CONC 29.8 g/dl (33.0-37.0); MEAN PLATELET VOLUME 9.8 fl (9.6-12.3); MONO # 0.7 10*3/uL (0.1-1.0); MONO % 7.6 % (3.0-9.0); NEUT # 7.4 10*3/uL (2.3-7.9); NEUT % 79.6 % (47.0-73.0); PLATELET COUNT AUTOMATED 376 10*3/uL (130-400); RED BLOOD COUNT 3.88 10*6/uL (4.50-5.90); RED CELL DISTRI WIDTH 18.1 % (0-14.5); WHITE BLOOD COUNT 9.3 10*3/uL (4.8-10.8)
[2021-05-19 16:14] LABS: EPITHELIAL CELLS 0-2
[2021-05-19 16:15] LABS: BACTERIA 1+; HYALINE CAST 0-2
[2021-05-19 16:25] LABS: CREATININE 1.56 mg/dL (0.70-1.30); TOTAL PROTEIN 7.1 gm/dL (6.4-8.2)
== END 2021-05-19 19:34 ==
LOC: ED 15:40
PROVIDERS: Student in an Organized Health Care Education/Training Program
DX: S09.90XA Unspecified injury of head, initial encounter (principal); E86.0 Dehydration; Z88.8 Allergy status to other drugs, medicaments and biological substances; Z79.899 Other long term (current) drug therapy; Z98.890 Other specified postprocedural states; Z87.891 Personal history of nicotine dependence; W18.39XA Other fall on same level, initial encounter; Y93.89 Activity, other specified; Y92.89 Other specified places as the place of occurrence of the external cause; Y99.8 Other external cause status

== ENCOUNTER → 2021-09-18 | Outpatient (CLI) | payer MEDICAID | END | disposition home or self-care (01) | LOC: WOUNDCARE 15:33 | PROVIDERS: ATTEND Podiatrist Foot & Ankle Surgery | DX: E11.621 Type 2 diabetes mellitus with foot ulcer (principal); L97.422 Non-pressure chronic ulcer of left heel and midfoot with fat layer exposed; L97.522 Non-pressure chronic ulcer of other part of left foot with fat layer exposed; T87.89 Other complications of amputation stump; E11.622 Type 2 diabetes mellitus with other skin ulcer; L97.822 Non-pressure chronic ulcer of other part of left lower leg with fat layer exposed; L84 Corns and callosities; E11.40 Type 2 diabetes mellitus with diabetic neuropathy, unspecified; K21.9 Gastro-esophageal reflux disease without esophagitis; I25.10 Atherosclerotic heart disease of native coronary artery without angina pectoris; I11.0 Hypertensive heart disease with heart failure; I50.9 Heart failure, unspecified; E78.5 Hyperlipidemia, unspecified; D64.9 Anemia, unspecified; G89.29 Other chronic pain; M54.9 Dorsalgia, unspecified; Z87.891 Personal history of nicotine dependence; Y83.5 Amputation of limb(s) as the cause of abnormal reaction of the patient, or of later complication, without mention of misadventure at the time of the procedure; Y92.238 Other place in hospital as the place of occurrence of the external cause ==

== ENCOUNTER → 2021-09-25 | Outpatient (CLI) | payer MEDICAID | END | disposition home or self-care (01) | LOC: WOUNDCARE 02:24 | PROVIDERS: ATTEND Podiatrist Foot & Ankle Surgery | DX: E11.621 Type 2 diabetes mellitus with foot ulcer (principal); L97.422 Non-pressure chronic ulcer of left heel and midfoot with fat layer exposed; L97.522 Non-pressure chronic ulcer of other part of left foot with fat layer exposed; T87.89 Other complications of amputation stump; E11.622 Type 2 diabetes mellitus with other skin ulcer; L97.822 Non-pressure chronic ulcer of other part of left lower leg with fat layer exposed; L84 Corns and callosities; E11.40 Type 2 diabetes mellitus with diabetic neuropathy, unspecified; K21.9 Gastro-esophageal reflux disease without esophagitis; I25.10 Atherosclerotic heart disease of native coronary artery without angina pectoris; I11.0 Hypertensive heart disease with heart failure; I50.9 Heart failure, unspecified; E78.5 Hyperlipidemia, unspecified; D64.9 Anemia, unspecified; G89.29 Other chronic pain; M54.9 Dorsalgia, unspecified; Z87.891 Personal history of nicotine dependence; Y83.5 Amputation of limb(s) as the cause of abnormal reaction of the patient, or of later complication, without mention of misadventure at the time of the procedure ==

== ENCOUNTER 2021-10-08 00:51 | Emergency (ER) | payer MEDICAID ==
[2021-10-08 01:37] VITALS: BP 182/69
== END 2021-10-08 04:21 | disposition left against medical advice (07) ==
LOC: ED 00:51
DX: T78.49XA Other allergy, initial encounter (principal); I25.10 Atherosclerotic heart disease of native coronary artery without angina pectoris; I11.0 Hypertensive heart disease with heart failure; I50.9 Heart failure, unspecified; K21.9 Gastro-esophageal reflux disease without esophagitis; E78.5 Hyperlipidemia, unspecified; E11.9 Type 2 diabetes mellitus without complications; E11.51 Type 2 diabetes mellitus with diabetic peripheral angiopathy without gangrene; E43 Unspecified severe protein-calorie malnutrition; Z88.8 Allergy status to other drugs, medicaments and biological substances; Z79.4 Long term (current) use of insulin; Z98.890 Other specified postprocedural states; Z87.891 Personal history of nicotine dependence; X58.XXXA Exposure to other specified factors, initial encounter

== ENCOUNTER → 2021-10-09 | Outpatient (CLI) | payer MEDICAID | END | disposition home or self-care (01) | LOC: WOUNDCARE 00:58 | PROVIDERS: ATTEND Podiatrist Foot & Ankle Surgery | DX: E11.621 Type 2 diabetes mellitus with foot ulcer (principal); L97.422 Non-pressure chronic ulcer of left heel and midfoot with fat layer exposed; L97.522 Non-pressure chronic ulcer of other part of left foot with fat layer exposed; T87.89 Other complications of amputation stump; L84 Corns and callosities; E11.40 Type 2 diabetes mellitus with diabetic neuropathy, unspecified; I87.2 Venous insufficiency (chronic) (peripheral); I10 Essential (primary) hypertension; G89.29 Other chronic pain; Z87.891 Personal history of nicotine dependence; Z95.828 Presence of other vascular implants and grafts; Y83.5 Amputation of limb(s) as the cause of abnormal reaction of the patient, or of later complication, without mention of misadventure at the time of the procedure ==

== ENCOUNTER → 2021-10-30 | Outpatient (CLI) | payer OTHER ==
[~2021-10-30] MED LIST changes: +AMLODIPINE BESY10 MG PO; +BUTRANS1 EAC2 TD; +CEFDINIR300 MG PO; +COREG3.125 MG PO; +ERYTHROMYCIN OPH1 GM OPH; +PERCOCET 5-3251 EACH PO
== END | disposition home or self-care (01) ==
LOC: WOUNDCARE 03:00
PROVIDERS: ATTEND Podiatrist Foot & Ankle Surgery
DX: E11.621 Type 2 diabetes mellitus with foot ulcer (principal); L97.421 Non-pressure chronic ulcer of left heel and midfoot limited to breakdown of skin; L97.522 Non-pressure chronic ulcer of other part of left foot with fat layer exposed; L84 Corns and callosities; E11.40 Type 2 diabetes mellitus with diabetic neuropathy, unspecified; G89.29 Other chronic pain; I87.2 Venous insufficiency (chronic) (peripheral); I10 Essential (primary) hypertension; Z87.891 Personal history of nicotine dependence; Z95.828 Presence of other vascular implants and grafts

== ENCOUNTER → 2021-11-01 | Day surgery (SDC) | payer OTHER ==
[~2021-11-01] VITALS: Ht 177.8 cm; Wt 96.6 kg
[~2021-11-01] MED LIST changes: +DOXYCYCLINE MO100 MG PO
[2021-11-01 06:45] VITALS: BP 169/66
[2021-11-01 08:15] VITALS: BP 118/64
[2021-11-01 08:30] VITALS: BP 121/64
[2021-11-01 08:45] VITALS: BP 149/67
[2021-11-02 10:07] LABS: ACID FAST SPEC PROCESSING Tissue Grinding (.)
== END | disposition home or self-care (01) ==
LOC: SDC 10-31 11:45
PROVIDERS: ATTEND Podiatrist
DX: S91.302A Unspecified open wound, left foot, initial encounter (principal); I11.0 Hypertensive heart disease with heart failure; I50.9 Heart failure, unspecified; I25.10 Atherosclerotic heart disease of native coronary artery without angina pectoris; E11.9 Type 2 diabetes mellitus without complications; E78.00 Pure hypercholesterolemia, unspecified; I25.2 Old myocardial infarction; Z79.899 Other long term (current) drug therapy; Z88.1 Allergy status to other antibiotic agents; Z88.8 Allergy status to other drugs, medicaments and biological substances; X58.XXXA Exposure to other specified factors, initial encounter; Y93.9 Activity, unspecified; Y92.89 Other specified places as the place of occurrence of the external cause; Y99.8 Other external cause status

== ENCOUNTER → 2021-11-06 | Outpatient (CLI) | payer OTHER | END | disposition home or self-care (01) | LOC: WOUNDCARE 00:47 | PROVIDERS: ATTEND Podiatrist Foot & Ankle Surgery | DX: T81.89XD Other complications of procedures, not elsewhere classified, subsequent encounter (principal); E11.621 Type 2 diabetes mellitus with foot ulcer; L97.522 Non-pressure chronic ulcer of other part of left foot with fat layer exposed; L97.421 Non-pressure chronic ulcer of left heel and midfoot limited to breakdown of skin; E11.40 Type 2 diabetes mellitus with diabetic neuropathy, unspecified; I10 Essential (primary) hypertension; I87.2 Venous insufficiency (chronic) (peripheral); G89.29 Other chronic pain; Z87.891 Personal history of nicotine dependence; Z95.828 Presence of other vascular implants and grafts; Z89.511 Acquired absence of right leg below knee; Y83.8 Other surgical procedures as the cause of abnormal reaction of the patient, or of later complication, without mention of misadventure at the time of the procedure ==

== ENCOUNTER → 2021-11-13 | Outpatient (CLI) | payer OTHER | END | disposition home or self-care (01) | LOC: WOUNDCARE 02:05 | PROVIDERS: ATTEND Podiatrist Foot & Ankle Surgery | DX: T81.89XD Other complications of procedures, not elsewhere classified, subsequent encounter (principal); E11.621 Type 2 diabetes mellitus with foot ulcer; L97.522 Non-pressure chronic ulcer of other part of left foot with fat layer exposed; L97.422 Non-pressure chronic ulcer of left heel and midfoot with fat layer exposed; E11.40 Type 2 diabetes mellitus with diabetic neuropathy, unspecified; I87.2 Venous insufficiency (chronic) (peripheral); I10 Essential (primary) hypertension; M24.572 Contracture, left ankle; M24.50 Contracture, unspecified joint; Z87.891 Personal history of nicotine dependence; Z95.820 Peripheral vascular angioplasty status with implants and grafts; Y83.8 Other surgical procedures as the cause of abnormal reaction of the patient, or of later complication, without mention of misadventure at the time of the procedure ==

== ENCOUNTER → 2021-11-20 | Outpatient (CLI) | payer OTHER | LOC: WOUNDCARE 07:28 | PROVIDERS: ATTEND Podiatrist Foot & Ankle Surgery | DX: E11.621 Type 2 diabetes mellitus with foot ulcer (principal); L97.522 Non-pressure chronic ulcer of other part of left foot with fat layer exposed; L97.422 Non-pressure chronic ulcer of left heel and midfoot with fat layer exposed; E11.40 Type 2 diabetes mellitus with diabetic neuropathy, unspecified; I87.2 Venous insufficiency (chronic) (peripheral); I10 Essential (primary) hypertension; M24.572 Contracture, left ankle; M24.50 Contracture, unspecified joint; Z87.891 Personal history of nicotine dependence; Z95.820 Peripheral vascular angioplasty status with implants and grafts ==

== ENCOUNTER 2021-11-25 08:14 | Emergency (ER) | payer OTHER ==
[~2021-11-25] VITALS: Wt 88.9 kg
[2021-11-25 08:18] VITALS: BP 111/45
[2021-11-26] MEDS ORDERED: FLONASE ALLERG9.9 ML NAS (04:21)
[2021-11-26] MEDS ORDERED: GOOD SENSE ALLE10 M2 PO (04:22)
[2021-11-26] MEDS ORDERED: LYRICA200 M1 PO (04:23)
[2021-11-26] MEDS ORDERED: Methadone Hydro10 MG PO (04:24)
[2021-11-26] MEDS ORDERED: RESTORIL15 MG PO (04:25)
== END 2021-11-25 11:35 | disposition home or self-care (01) ==
LOC: ED 08:14
DX: S61.412A Laceration without foreign body of left hand, initial encounter (principal); S80.02XA Contusion of left knee, initial encounter; Z88.8 Allergy status to other drugs, medicaments and biological substances; Z79.899 Other long term (current) drug therapy; Z98.890 Other specified postprocedural states; Z87.891 Personal history of nicotine dependence; W18.39XA Other fall on same level, initial encounter; Y93.89 Activity, other specified; Y92.89 Other specified places as the place of occurrence of the external cause; Y99.8 Other external cause status

== ENCOUNTER 2021-12-09 20:38 | Inpatient (IN) | payer OTHER ==
[~2021-12-09] VITALS: Ht 175.3 cm; Wt 101.6 kg
[~2021-12-09 20:38] MED LIST changes: +AUGMENTIN 500500 M1 PO; +CARVEDILOL12.5 MG PO; +GOOD SENSE ALLE10 M2 PO; +RESTORIL15 MG PO
[2021-12-09 20:40] VITALS: BP 125/51
[2021-12-09 20:54] LABS: ABG BASE EXCESS -6.9 mmol/L (-2.0-2.0); ARTERIAL BLOOD GAS PH 7.327 (7.35-7.45); ARTERIAL BLOOD GAS PO2 187.4 (80-90)
[2021-12-09 21:16] LABS: MEAN CELL VOLUME 87.3 fl (80.0-94.0); MEAN CORPUSCULAR HGB 24.9 pg (27.0-31.0); MEAN CORPUSCULAR HGB CONC 28.5 g/dl (33.0-37.0); MEAN PLATELET VOLUME 10.6 fl (9.6-12.3); PLATELET COUNT AUTOMATED 267 10*3/uL (130-400); RED BLOOD COUNT 2.29 10*6/uL (4.50-5.90); RED CELL DISTRI WIDTH 17.1 % (0-14.5); WHITE BLOOD COUNT 8.7 10*3/uL (4.8-10.8)
[2021-12-09 21:18] LABS: MANUAL DIFF REFLEX YES
[2021-12-09 21:26] LABS: ACT PARTIAL THROMBO TIME 34.7 SECONDS (20.0-32.1); INTERNATIONAL NORM RATIO 1.4 (2.0-3.5)
[2021-12-09 21:33] LABS: ALKALINE PHOSPHATASE 61 U/L (45-117); BUN 51 mg/dl (7-24); CHLORIDE 116 mmol/L (98-107); CREATININE 2.99 mg/dL (0.70-1.30); POTASSIUM 5.9 mmol/L (3.5-5.1); SGOT/AST 8 IU/L (3-35); SGPT/ALT < 6 U/L (12-78); SODIUM 144 mmol/L (136-145); TOTAL PROTEIN 5.2 gm/dL (6.4-8.2)
[2021-12-09 21:36] LABS: BASOPHILS 1 % (0-1); PLATELET SUFFICIENCY NORMAL (NORMAL); TOTAL CELLS COUNTED 100 #CELLS
[2021-12-09 21:37] LABS: BURR CELLS FEW; POLYCHROMASIA SLIGHT
[2021-12-09 21:38] LABS: TARGET CELLS FEW
[2021-12-09 22:26] VITALS: BP 125/64
[2021-12-09 23:41] VITALS: BP 104/52
[2021-12-10] VITALS (13 sets, daily range): BP systolic 94–147; BP diastolic 44–70
[2021-12-10 00:27] LABS: CREATININE 2.99 mg/dL (0.70-1.30); POTASSIUM 5.8 mmol/L (3.5-5.1)
[2021-12-10] MEDS ORDERED: COZAAR50 M1 PO (00:35)
[2021-12-10] MEDS ORDERED: Methadone Hydro10 MG PO (00:36)
[2021-12-10 04:14] LABS: HEMATOCRIT 23.8 % (42.0-52.0); MEAN CELL VOLUME 85.3 fl (80.0-94.0); MEAN CORPUSCULAR HGB 25.4 pg (27.0-31.0); MEAN CORPUSCULAR HGB CONC 29.8 g/dl (33.0-37.0); MEAN PLATELET VOLUME 10.3 fl (9.6-12.3); PLATELET COUNT AUTOMATED 269 10*3/uL (130-400); RED BLOOD COUNT 2.79 10*6/uL (4.50-5.90); RED CELL DISTRI WIDTH 16.3 % (0-14.5); WHITE BLOOD COUNT 16.8 10*3/uL (4.8-10.8)
[2021-12-10 04:20] LABS: MANUAL DIFF REFLEX YES
[2021-12-10 04:36] LABS: ACANTHOCYTES FEW; BURR CELLS MODERATE; PLATELET SUFFICIENCY NORMAL (NORMAL); POLYCHROMASIA SLIGHT; TOTAL CELLS COUNTED 100 #CELLS
[2021-12-10 04:38] LABS: CREATININE 2.92 mg/dL (0.70-1.30); TOTAL PROTEIN 5.6 gm/dL (6.4-8.2); TOXIC GRANULATION SLIGHT
[2021-12-10 04:45] LABS: POTASSIUM 6.1 mmol/L (3.5-5.1)
[2021-12-10 07:38] LABS: BILIRUBIN Negative (Negative); BLOOD Trace-Lysed (Negative); CLARITY Cloudy (Clear); COLOR Yellow (Yellow); GLUCOSE Trace (Negative); KETONE Negative (Negative); LEUKO ESTERASE Negative (Negative); NITRITE Negative (Negative); SPECIFIC GRAVITY 1.015 (1.001-1.030)
[2021-12-10 08:02] LABS: BACTERIA 2+; CALCIUM OXALATE CRYSTALS Trace
[2021-12-10 15:47] LABS: HEMATOCRIT 24.8 % (42.0-52.0); MEAN CELL VOLUME 84.6 fl (80.0-94.0); MEAN CORPUSCULAR HGB 25.6 pg (27.0-31.0); MEAN CORPUSCULAR HGB CONC 30.2 g/dl (33.0-37.0); MEAN PLATELET VOLUME 10.8 fl (9.6-12.3); PLATELET COUNT AUTOMATED 267 10*3/uL (130-400); RED BLOOD COUNT 2.93 10*6/uL (4.50-5.90); RED CELL DISTRI WIDTH 16.4 % (0-14.5); WHITE BLOOD COUNT 9.6 10*3/uL (4.8-10.8)
[2021-12-10 15:57] LABS: MANUAL DIFF REFLEX YES
[2021-12-10 16:10] LABS: CREATININE 3.03 mg/dL (0.70-1.30); TOTAL PROTEIN 5.8 gm/dL (6.4-8.2)
[2021-12-10 16:17] LABS: TOTAL CELLS COUNTED 100 #CELLS
[2021-12-10 16:18] LABS: BURR CELLS MODERATE; PLATELET SUFFICIENCY NORMAL (NORMAL)
[2021-12-10 16:19] LABS: OVALOCYTES FEW
[2021-12-11] VITALS (22 sets, daily range): BP systolic 132–189; BP diastolic 51–72
[2021-12-11 05:59] LABS: CREATININE 2.9 mg/dL (0.70-1.30); POTASSIUM 4.7 mmol/L (3.5-5.1); TOTAL PROTEIN 5.8 gm/dL (6.4-8.2)
[2021-12-11 06:30] LABS: HEMATOCRIT 24.5 % (42.0-52.0); LYMPH # 0.6 10*3/uL (1.3-4.4); MEAN CELL VOLUME 84.2 fl (80.0-94.0); MEAN CORPUSCULAR HGB 24.7 pg (27.0-31.0); MEAN CORPUSCULAR HGB CONC 29.4 g/dl (33.0-37.0); MEAN PLATELET VOLUME 11.2 fl (9.6-12.3); MONO # 0.8 10*3/uL (0.1-1.0); MONO % 10.3 % (3.0-9.0); NEUT # 6.5 10*3/uL (2.3-7.9); NEUT % 81.9 % (47.0-73.0); PLATELET COUNT AUTOMATED 300 10*3/uL (130-400); RED BLOOD COUNT 2.91 10*6/uL (4.50-5.90); RED CELL DISTRI WIDTH 16.3 % (0-14.5)
[2021-12-11 16:34] LABS: HEMATOCRIT 27.5 % (42.0-52.0)
[2021-12-12] VITALS (12 sets, daily range): BP systolic 118–194; BP diastolic 53–75
[2021-12-12 07:24] LABS: BASO % 0.1 % (0.0-1.0); LYMPH # 0.6 10*3/uL (1.3-4.4); LYMPH % 5.6 % (27.0-41.0); MEAN CORPUSCULAR HGB 26.3 pg (27.0-31.0); MEAN CORPUSCULAR HGB CONC 31.3 g/dl (33.0-37.0); MEAN PLATELET VOLUME 10.4 fl (9.6-12.3); MONO # 0.8 10*3/uL (0.1-1.0); MONO % 6.8 % (3.0-9.0); NEUT # 9.5 10*3/uL (2.3-7.9); NEUT % 85.1 % (47.0-73.0); PLATELET COUNT AUTOMATED 323 10*3/uL (130-400); RED BLOOD COUNT 3.57 10*6/uL (4.50-5.90); RED CELL DISTRI WIDTH 16.3 % (0-14.5); WHITE BLOOD COUNT 11.1 10*3/uL (4.8-10.8)
[2021-12-12 07:55] LABS: CREATININE 2.52 mg/dL (0.70-1.30); POTASSIUM 4.2 mmol/L (3.5-5.1)
[2021-12-13] VITALS: BP 160/80
[2021-12-13 04:56] LABS: BASO % 0.1 % (0.0-1.0); HEMATOCRIT 28.1 % (42.0-52.0); LYMPH # 0.6 10*3/uL (1.3-4.4); LYMPH % 5.9 % (27.0-41.0); MEAN CELL VOLUME 86.7 fl (80.0-94.0); MEAN CORPUSCULAR HGB 26.2 pg (27.0-31.0); MEAN CORPUSCULAR HGB CONC 30.2 g/dl (33.0-37.0); MEAN PLATELET VOLUME 10.4 fl (9.6-12.3); MONO # 0.6 10*3/uL (0.1-1.0); MONO % 6.1 % (3.0-9.0); NEUT # 8.6 10*3/uL (2.3-7.9); NEUT % 85.9 % (47.0-73.0); PLATELET COUNT AUTOMATED 284 10*3/uL (130-400); RED BLOOD COUNT 3.24 10*6/uL (4.50-5.90); RED CELL DISTRI WIDTH 17.2 % (0-14.5)
[2021-12-13 05:21] LABS: CREATININE 2.27 mg/dL (0.70-1.30); POTASSIUM 4.2 mmol/L (3.5-5.1)
[2021-12-13 08:00] VITALS: BP 193/71
[2021-12-13 12:00] VITALS: BP 160/60
[2021-12-13 16:27] VITALS: BP 173/64
[2021-12-13 20:00] VITALS: BP 176/61
[2021-12-13 23:58] VITALS: BP 189/68
[2021-12-14] VITALS (7 sets, daily range): BP systolic 170–198; BP diastolic 68–98
[2021-12-14 06:10] LABS: CREATININE 1.91 mg/dL (0.70-1.30); POTASSIUM 4.3 mmol/L (3.5-5.1)
[2021-12-14 06:32] LABS: BASO % 0.1 % (0.0-1.0); EOS % 0.1 % (1.0-4.0); HEMATOCRIT 30.1 % (42.0-52.0); LYMPH # 0.6 10*3/uL (1.3-4.4); LYMPH % 4.9 % (27.0-41.0); MEAN CELL VOLUME 86.2 fl (80.0-94.0); MEAN CORPUSCULAR HGB 25.8 pg (27.0-31.0); MEAN CORPUSCULAR HGB CONC 29.9 g/dl (33.0-37.0); MEAN PLATELET VOLUME 10.7 fl (9.6-12.3); MONO # 0.7 10*3/uL (0.1-1.0); MONO % 5.8 % (3.0-9.0); NEUT # 9.9 10*3/uL (2.3-7.9); NEUT % 87.3 % (47.0-73.0); PLATELET COUNT AUTOMATED 314 10*3/uL (130-400); RED BLOOD COUNT 3.49 10*6/uL (4.50-5.90); RED CELL DISTRI WIDTH 17.3 % (0-14.5); WHITE BLOOD COUNT 11.3 10*3/uL (4.8-10.8)
[2021-12-14] MEDS ORDERED: Methadone Hydro10 MG PO ×2 (13:18→13:22)
[2021-12-14] MEDS ORDERED: PREGABALIN50 MG PO (14:35)
[2021-12-14] MEDS ORDERED: ASPIRIN ADULT L81 M2 PO (14:35)
[2021-12-14] MEDS ORDERED: HYDRALAZINE HYD50 MG PO (14:35)
[2021-12-14] MEDS ORDERED: RESTORIL15 MG PO (14:35)
[2021-12-14] MEDS ORDERED: ELIQUIS5 M1 PO (14:35)
[2021-12-14] MEDS ORDERED: AMOX-CLAV 875-1 EACH PO (14:35)
[2021-12-14] MEDS ORDERED: NORVASC10 MG PO (16:19)
== END 2021-12-14 18:30 | DRG 137 ==
LOC: ED 20:38 → ICCU 22:09 → 4E 12-13 19:50
PROVIDERS: Family Medicine; Internal Medicine; Internal Medicine Critical Care Medicine; Student in an Organized Health Care Education/Training Program; ADMIT Emergency Medicine; ATTEND Emergency Medicine
PROC: 5A09357 Assistance with Respiratory Ventilation, Less than 24 Consecutive Hours, Continuous Positive Airway Pressure (ICD-10-PCS; 2021-12-09)
PROC: 30233N1 Transfusion of Nonautologous Red Blood Cells into Peripheral Vein, Percutaneous Approach (ICD-10-PCS; principal; 2021-12-10)
PROC: 5A09357 Assistance with Respiratory Ventilation, Less than 24 Consecutive Hours, Continuous Positive Airway Pressure (ICD-10-PCS; 2021-12-10)
PROC: 5A09357 Assistance with Respiratory Ventilation, Less than 24 Consecutive Hours, Continuous Positive Airway Pressure (ICD-10-PCS; 2021-12-12)
PROC: 0DJ08ZZ Inspection of Upper Intestinal Tract, Via Natural or Artificial Opening Endoscopic (ICD-10-PCS; 2021-12-12)
DX: J69.0 Pneumonitis due to inhalation of food and vomit (principal); J96.01 Acute respiratory failure with hypoxia; N17.0 Acute kidney failure with tubular necrosis; E43 Unspecified severe protein-calorie malnutrition; I50.32 Chronic diastolic (congestive) heart failure; I13.0 Hypertensive heart and chronic kidney disease with heart failure and stage 1 through stage 4 chronic kidney disease, or unspecified chronic kidney disease; E11.22 Type 2 diabetes mellitus with diabetic chronic kidney disease; E11.65 Type 2 diabetes mellitus with hyperglycemia; D64.9 Anemia, unspecified; E87.5 Hyperkalemia; E88.09 Other disorders of plasma-protein metabolism, not elsewhere classified; Z20.822 Contact with and (suspected) exposure to COVID-19; I25.10 Atherosclerotic heart disease of native coronary artery without angina pectoris; K21.9 Gastro-esophageal reflux disease without esophagitis; E11.51 Type 2 diabetes mellitus with diabetic peripheral angiopathy without gangrene; E11.42 Type 2 diabetes mellitus with diabetic polyneuropathy; R13.10 Dysphagia, unspecified; E87.8 Other disorders of electrolyte and fluid balance, not elsewhere classified; N18.31 Chronic kidney disease, stage 3a; E11.69 Type 2 diabetes mellitus with other specified complication; M86.8X8 Other osteomyelitis, other site; E78.2 Mixed hyperlipidemia; L97.429 Non-pressure chronic ulcer of left heel and midfoot with unspecified severity; K31.84 Gastroparesis; S51.811A Laceration without foreign body of right forearm, initial encounter; S30.0XXA Contusion of lower back and pelvis, initial encounter; X58.XXXA Exposure to other specified factors, initial encounter; E11.43 Type 2 diabetes mellitus with diabetic autonomic (poly)neuropathy; Z79.4 Long term (current) use of insulin; Z88.6 Allergy status to analgesic agent; Z88.8 Allergy status to other drugs, medicaments and biological substances; Z95.5 Presence of coronary angioplasty implant and graft; Z87.891 Personal history of nicotine dependence; Z82.49 Family history of ischemic heart disease and other diseases of the circulatory system; Z89.511 Acquired absence of right leg below knee; Y93.89 Activity, other specified; Y92.89 Other specified places as the place of occurrence of the external cause; Y99.8 Other external cause status; Z68.33 Body mass index [BMI] 33.0-33.9, adult

== ENCOUNTER 2021-12-23 08:41 | Inpatient (IN) | payer OTHER ==
[~2021-12-23] VITALS: Ht 175.3 cm; Wt 105.7 kg
[~2021-12-23 08:41] MED LIST changes: +AMOX-CLAV 875-1 EACH PO; +ASPIRIN ADULT L81 M2 PO; +COZAAR50 M1 PO; +HYDRALAZINE HYD50 MG PO; +NORVASC10 MG PO; +PREGABALIN50 MG PO
[2021-12-23 09:09] VITALS: BP 146/56
[2021-12-23 09:12] LABS: BASO % 0.3 % (0.0-1.0); EOS # 0.2 10*3/uL (0.0-0.4); EOS % 2.1 % (1.0-4.0); HEMATOCRIT 24.7 % (42.0-52.0); LYMPH # 0.6 10*3/uL (1.3-4.4); MEAN CELL VOLUME 87.9 fl (80.0-94.0); MEAN CORPUSCULAR HGB CONC 29.6 g/dl (33.0-37.0); MONO # 0.8 10*3/uL (0.1-1.0); MONO % 9.8 % (3.0-9.0); NEUT # 6.2 10*3/uL (2.3-7.9); NEUT % 79.2 % (47.0-73.0); PLATELET COUNT AUTOMATED 240 10*3/uL (130-400); RED BLOOD COUNT 2.81 10*6/uL (4.50-5.90); RED CELL DISTRI WIDTH 18.6 % (0-14.5); WHITE BLOOD COUNT 7.8 10*3/uL (4.8-10.8)
[2021-12-23 09:16] LABS: ABG BASE EXCESS -3.4 mmol/L (-2.0-2.0); ARTERIAL BLOOD GAS PH 7.346 (7.35-7.45); ARTERIAL BLOOD GAS PO2 98.8 (80-90)
[2021-12-23 09:24] LABS: INTERNATIONAL NORM RATIO 1.1 (2.0-3.5)
[2021-12-23 09:28] LABS: CREATININE 2.35 mg/dL (0.70-1.30); POTASSIUM 4.5 mmol/L (3.5-5.1); TOTAL PROTEIN 5.7 gm/dL (6.4-8.2)
[2021-12-23 09:55] LABS: BILIRUBIN Negative (Negative); BLOOD Negative (Negative); CLARITY Clear (Clear); COLOR Yellow (Yellow); GLUCOSE Negative (Negative); KETONE Negative (Negative); LEUKO ESTERASE Trace (Negative); NITRITE Negative (Negative); PH 5.5 (4.5-8.0)
[2021-12-23 10:26] LABS: BACTERIA 3+; WBC TNTC wbc/hpf (0-5)
[2021-12-23 10:27] LABS: YEAST 2+
[2021-12-23 13:59] VITALS: BP 121/58
[2021-12-23 14:26] VITALS: BP 161/60
[2021-12-23 19:11] LABS: BASO % 0.3 % (0.0-1.0); EOS # 0.1 10*3/uL (0.0-0.4); EOS % 0.8 % (1.0-4.0); HEMATOCRIT 25.7 % (42.0-52.0); LYMPH # 0.7 10*3/uL (1.3-4.4); LYMPH % 6.9 % (27.0-41.0); MEAN CELL VOLUME 88.3 fl (80.0-94.0); MEAN CORPUSCULAR HGB 25.8 pg (27.0-31.0); MEAN CORPUSCULAR HGB CONC 29.2 g/dl (33.0-37.0); MEAN PLATELET VOLUME 9.7 fl (9.6-12.3); MONO # 0.7 10*3/uL (0.1-1.0); MONO % 7.5 % (3.0-9.0); NEUT % 83.6 % (47.0-73.0); PLATELET COUNT AUTOMATED 234 10*3/uL (130-400); RED BLOOD COUNT 2.91 10*6/uL (4.50-5.90); RED CELL DISTRI WIDTH 18.5 % (0-14.5); WHITE BLOOD COUNT 9.6 10*3/uL (4.8-10.8)
[2021-12-23 19:39] LABS: INTERNATIONAL NORM RATIO 1.2 (2.0-3.5)
[2021-12-23 20:00] VITALS: BP 127/66
[2021-12-24] VITALS: BP 149/61
[2021-12-24 06:16] LABS: CREATININE 2.1 mg/dL (0.70-1.30); POTASSIUM 3.8 mmol/L (3.5-5.1)
[2021-12-24 06:24] LABS: BASO % 0.4 % (0.0-1.0); EOS # 0.2 10*3/uL (0.0-0.4); EOS % 3.1 % (1.0-4.0); HEMATOCRIT 23.7 % (42.0-52.0); LYMPH # 0.8 10*3/uL (1.3-4.4); LYMPH % 14.9 % (27.0-41.0); MEAN CELL VOLUME 87.8 fl (80.0-94.0); MEAN CORPUSCULAR HGB 25.9 pg (27.0-31.0); MEAN CORPUSCULAR HGB CONC 29.5 g/dl (33.0-37.0); MEAN PLATELET VOLUME 10.3 fl (9.6-12.3); MONO # 0.6 10*3/uL (0.1-1.0); MONO % 11.6 % (3.0-9.0); NEUT # 3.5 10*3/uL (2.3-7.9); PLATELET COUNT AUTOMATED 218 10*3/uL (130-400); RED CELL DISTRI WIDTH 18.3 % (0-14.5); WHITE BLOOD COUNT 5.1 10*3/uL (4.8-10.8)
[2021-12-24 08:00] VITALS: BP 138/55
[2021-12-24 12:00] VITALS: BP 132/50
[2021-12-24 16:00] VITALS: BP 136/43
[2021-12-24 20:00] VITALS: BP 145/79
[2021-12-25] VITALS: BP 162/62
[2021-12-25 04:00] VITALS: BP 145/52
[2021-12-25 05:52] LABS: CREATININE 2.16 mg/dL (0.70-1.30); TOTAL PROTEIN 5.4 gm/dL (6.4-8.2)
[2021-12-25 06:19] LABS: BASO % 0.6 % (0.0-1.0); EOS # 0.2 10*3/uL (0.0-0.4); EOS % 3.5 % (1.0-4.0); HEMATOCRIT 23.7 % (42.0-52.0); LYMPH # 0.6 10*3/uL (1.3-4.4); LYMPH % 11.4 % (27.0-41.0); MEAN CELL VOLUME 87.5 fl (80.0-94.0); MEAN CORPUSCULAR HGB 25.8 pg (27.0-31.0); MEAN CORPUSCULAR HGB CONC 29.5 g/dl (33.0-37.0); MEAN PLATELET VOLUME 10.5 fl (9.6-12.3); MONO # 0.5 10*3/uL (0.1-1.0); MONO % 9.8 % (3.0-9.0); NEUT % 73.8 % (47.0-73.0); PLATELET COUNT AUTOMATED 263 10*3/uL (130-400); RED BLOOD COUNT 2.71 10*6/uL (4.50-5.90); RED CELL DISTRI WIDTH 18.5 % (0-14.5); WHITE BLOOD COUNT 5.4 10*3/uL (4.8-10.8)
[2021-12-25 08:00] VITALS: BP 168/71
[2021-12-25 12:00] VITALS: BP 157/62
[2021-12-25 16:00] VITALS: BP 166/68
[2021-12-25 20:00] VITALS: BP 147/53
[2021-12-26] VITALS: BP 149/59
[2021-12-26 06:14] LABS: CREATININE 2.11 mg/dL (0.70-1.30)
[2021-12-26 06:18] LABS: BASO % 0.4 % (0.0-1.0); EOS # 0.2 10*3/uL (0.0-0.4); EOS % 3.5 % (1.0-4.0); HEMATOCRIT 25.5 % (42.0-52.0); LYMPH # 0.7 10*3/uL (1.3-4.4); MEAN CELL VOLUME 86.4 fl (80.0-94.0); MEAN CORPUSCULAR HGB 25.8 pg (27.0-31.0); MEAN CORPUSCULAR HGB CONC 29.8 g/dl (33.0-37.0); MONO # 0.8 10*3/uL (0.1-1.0); MONO % 10.8 % (3.0-9.0); NEUT # 5.1 10*3/uL (2.3-7.9); NEUT % 74.1 % (47.0-73.0); PLATELET COUNT AUTOMATED 303 10*3/uL (130-400); RED BLOOD COUNT 2.95 10*6/uL (4.50-5.90); RED CELL DISTRI WIDTH 18.4 % (0-14.5); WHITE BLOOD COUNT 6.9 10*3/uL (4.8-10.8)
[2021-12-26 06:20] VITALS: BP 133/61
[2021-12-26 12:00] VITALS: BP 166/76
[2021-12-26 16:00] VITALS: BP 151/63
[2021-12-26 20:00] VITALS: BP 161/52
[2021-12-27] VITALS (14 sets, daily range): BP systolic 130–164; BP diastolic 52–77
[2021-12-27 05:18] LABS: CREATININE 2.19 mg/dL (0.70-1.30); POTASSIUM 4.5 mmol/L (3.5-5.1)
[2021-12-27 05:20] LABS: TOTAL PROTEIN 5.7 gm/dL (6.4-8.2)
[2021-12-27 06:42] LABS: HEMATOCRIT 22.6 % (42.0-52.0); MEAN CELL VOLUME 86.9 fl (80.0-94.0); MEAN CORPUSCULAR HGB 25.4 pg (27.0-31.0); MEAN CORPUSCULAR HGB CONC 29.2 g/dl (33.0-37.0); MEAN PLATELET VOLUME 10.4 fl (9.6-12.3); PLATELET COUNT AUTOMATED 272 10*3/uL (130-400); RED CELL DISTRI WIDTH 19.1 % (0-14.5); WHITE BLOOD COUNT 6.1 10*3/uL (4.8-10.8)
[2021-12-27 07:11] LABS: MANUAL DIFF REFLEX YES
[2021-12-27 07:35] LABS: BASOPHILS 2 % (0-1); BURR CELLS FEW; OVALOCYTES FEW; POLYCHROMASIA SLIGHT; TOTAL CELLS COUNTED 100 #CELLS
[2021-12-27 07:36] LABS: PLATELET SUFFICIENCY NORMAL (NORMAL); ROULEAUX SLIGHT; SCHISTOCYTES FEW
[2021-12-27 16:48] LABS: HEMATOCRIT 25.1 % (42.0-52.0); MEAN CELL VOLUME 85.7 fl (80.0-94.0); MEAN CORPUSCULAR HGB CONC 31.5 g/dl (33.0-37.0); MEAN PLATELET VOLUME 10.5 fl (9.6-12.3); PLATELET COUNT AUTOMATED 292 10*3/uL (130-400); RED BLOOD COUNT 2.93 10*6/uL (4.50-5.90); RED CELL DISTRI WIDTH 18.7 % (0-14.5); WHITE BLOOD COUNT 6.2 10*3/uL (4.8-10.8)
[2021-12-27 16:49] LABS: MANUAL DIFF REFLEX YES
[2021-12-27 17:14] LABS: ACANTHOCYTES FEW; ATYPICAL LYMPHS 1 % (0-0); BASOPHILS 1 % (0-1); BURR CELLS FEW; OVALOCYTES FEW; PLATELET SUFFICIENCY NORMAL (NORMAL); POLYCHROMASIA SLIGHT; TOTAL CELLS COUNTED 100 #CELLS
[2021-12-28] VITALS: BP 151/58
[2021-12-28 05:36] LABS: CREATININE 2.13 mg/dL (0.70-1.30); POTASSIUM 3.8 mmol/L (3.5-5.1); TOTAL PROTEIN 5.6 gm/dL (6.4-8.2)
[2021-12-28 06:22] LABS: HEMATOCRIT 25.4 % (42.0-52.0); MEAN CELL VOLUME 86.1 fl (80.0-94.0); MEAN CORPUSCULAR HGB 26.4 pg (27.0-31.0); MEAN CORPUSCULAR HGB CONC 30.7 g/dl (33.0-37.0); MEAN PLATELET VOLUME 9.9 fl (9.6-12.3); PLATELET COUNT AUTOMATED 277 10*3/uL (130-400); RED BLOOD COUNT 2.95 10*6/uL (4.50-5.90); RED CELL DISTRI WIDTH 18.8 % (0-14.5); WHITE BLOOD COUNT 5.8 10*3/uL (4.8-10.8)
[2021-12-28 06:24] LABS: MANUAL DIFF REFLEX YES
[2021-12-28 07:00] LABS: BASOPHILS 1 % (0-1); BURR CELLS FEW; OVALOCYTES FEW; POLYCHROMASIA SLIGHT; SCHISTOCYTES FEW; TOTAL CELLS COUNTED 100 #CELLS
[2021-12-28 07:01] LABS: PLATELET SUFFICIENCY NORMAL (NORMAL); ROULEAUX SLIGHT; TOXIC GRANULATION SLIGHT
[2021-12-28 08:00] VITALS: BP 153/56
[2021-12-28 12:00] VITALS: BP 164/61
[2021-12-28 15:36] VITALS: BP 154/51
[2021-12-28 20:00] VITALS: BP 149/76
[2021-12-29] VITALS: BP 145/59
[2021-12-29 05:02] LABS: CREATININE 2.12 mg/dL (0.70-1.30); POTASSIUM 3.7 mmol/L (3.5-5.1)
[2021-12-29 06:28] LABS: BASO % 0.6 % (0.0-1.0); EOS # 0.3 10*3/uL (0.0-0.4); EOS % 4.7 % (1.0-4.0); HEMATOCRIT 25.3 % (42.0-52.0); LYMPH % 15.6 % (27.0-41.0); MEAN CELL VOLUME 87.2 fl (80.0-94.0); MEAN CORPUSCULAR HGB 26.2 pg (27.0-31.0); MEAN PLATELET VOLUME 10.3 fl (9.6-12.3); MONO # 0.7 10*3/uL (0.1-1.0); MONO % 10.6 % (3.0-9.0); NEUT # 4.1 10*3/uL (2.3-7.9); NEUT % 65.6 % (47.0-73.0); PLATELET COUNT AUTOMATED 280 10*3/uL (130-400); RED CELL DISTRI WIDTH 19.3 % (0-14.5); WHITE BLOOD COUNT 6.2 10*3/uL (4.8-10.8)
[2021-12-29 08:00] VITALS: BP 142/57
[2021-12-29 15:33] VITALS: BP 170/64
[2021-12-30] VITALS: BP 160/64
[2021-12-30 05:21] LABS: CREATININE 2.12 mg/dL (0.70-1.30); POTASSIUM 3.5 mmol/L (3.5-5.1)
[2021-12-30 06:05] LABS: BASO % 0.6 % (0.0-1.0); EOS # 0.3 10*3/uL (0.0-0.4); EOS % 4.6 % (1.0-4.0); HEMATOCRIT 25.1 % (42.0-52.0); LYMPH # 0.9 10*3/uL (1.3-4.4); LYMPH % 14.8 % (27.0-41.0); MEAN CELL VOLUME 86.6 fl (80.0-94.0); MEAN CORPUSCULAR HGB 26.2 pg (27.0-31.0); MEAN CORPUSCULAR HGB CONC 30.3 g/dl (33.0-37.0); MEAN PLATELET VOLUME 10.2 fl (9.6-12.3); MONO # 0.7 10*3/uL (0.1-1.0); MONO % 11.2 % (3.0-9.0); NEUT # 4.2 10*3/uL (2.3-7.9); NEUT % 66.4 % (47.0-73.0); PLATELET COUNT AUTOMATED 288 10*3/uL (130-400); RED CELL DISTRI WIDTH 19.1 % (0-14.5); WHITE BLOOD COUNT 6.3 10*3/uL (4.8-10.8)
[2021-12-30 08:00] VITALS: BP 141/56
[2021-12-30] MEDS ORDERED: LYRICA75 M1 PO (11:55)
[2021-12-30] MEDS ORDERED: VIBRAMYCIN100 MG PO (11:55)
[2021-12-30] MEDS ORDERED: FEROSUL325 MG PO (11:55)
[2021-12-30] MEDS ORDERED: HUMALOG100 UNIT/1 SC (11:55)
[2021-12-30] MEDS ORDERED: LASIX40 MG PO (11:55)
[2021-12-30] MEDS ORDERED: Methadone Hydro10 MG PO (13:54)
[2021-12-30 16:00] VITALS: BP 122/46
== END 2021-12-30 19:03 | DRG 137 ==
LOC: ED 08:41 → ICCU 10:19 → EDHOLD 10:19 → 4E 13:54 → ICCU 12-24 17:04
PROVIDERS: Emergency Medicine; Internal Medicine; Student in an Organized Health Care Education/Training Program; ADMIT Emergency Medicine; ATTEND Emergency Medicine
PROC: 30233N1 Transfusion of Nonautologous Red Blood Cells into Peripheral Vein, Percutaneous Approach (ICD-10-PCS; principal; 2021-12-27)
DX: J69.0 Pneumonitis due to inhalation of food and vomit (principal); G93.41 Metabolic encephalopathy; D64.9 Anemia, unspecified; E87.20 Acidosis, unspecified; N39.0 Urinary tract infection, site not specified; E43 Unspecified severe protein-calorie malnutrition; E87.0 Hyperosmolality and hypernatremia; N17.0 Acute kidney failure with tubular necrosis; T38.3X5A Adverse effect of insulin and oral hypoglycemic [antidiabetic] drugs, initial encounter; Z20.822 Contact with and (suspected) exposure to COVID-19; I25.10 Atherosclerotic heart disease of native coronary artery without angina pectoris; E78.5 Hyperlipidemia, unspecified; K21.9 Gastro-esophageal reflux disease without esophagitis; E11.51 Type 2 diabetes mellitus with diabetic peripheral angiopathy without gangrene; E11.649 Type 2 diabetes mellitus with hypoglycemia without coma; G89.29 Other chronic pain; E11.42 Type 2 diabetes mellitus with diabetic polyneuropathy; E16.0 Drug-induced hypoglycemia without coma; J96.01 Acute respiratory failure with hypoxia; I50.30 Unspecified diastolic (congestive) heart failure; E11.22 Type 2 diabetes mellitus with diabetic chronic kidney disease; E66.8 Other obesity; S30.0XXA Contusion of lower back and pelvis, initial encounter; E87.8 Other disorders of electrolyte and fluid balance, not elsewhere classified; J96.21 Acute and chronic respiratory failure with hypoxia; X58.XXXA Exposure to other specified factors, initial encounter; R53.81 Other malaise; N18.4 Chronic kidney disease, stage 4 (severe); I13.0 Hypertensive heart and chronic kidney disease with heart failure and stage 1 through stage 4 chronic kidney disease, or unspecified chronic kidney disease; Z88.6 Allergy status to analgesic agent; Z88.8 Allergy status to other drugs, medicaments and biological substances; Z95.5 Presence of coronary angioplasty implant and graft; Z87.891 Personal history of nicotine dependence; Y92.89 Other specified places as the place of occurrence of the external cause; Y93.89 Activity, other specified; Y99.8 Other external cause status; Z68.33 Body mass index [BMI] 33.0-33.9, adult

== ENCOUNTER 2022-01-15 14:46 | Emergency (ER) | payer OTHER ==
[~2022-01-15] VITALS: Ht 175.2 cm; Wt 96.6 kg
[2022-01-15] VITALS (13 sets, daily range): BP systolic 133–159; BP diastolic 43–66
[~2022-01-15 14:46] MED LIST changes: +FEROSUL325 MG PO; +LYRICA75 M1 PO; +VIBRAMYCIN100 MG PO
[2022-01-15 15:09] LABS: MEAN CELL VOLUME 89.1 fl (80.0-94.0); MEAN CORPUSCULAR HGB 26.4 pg (27.0-31.0); MEAN CORPUSCULAR HGB CONC 29.6 g/dl (33.0-37.0); MEAN PLATELET VOLUME 9.9 fl (9.6-12.3); PLATELET COUNT AUTOMATED 314 10*3/uL (130-400); RED BLOOD COUNT 2.01 10*6/uL (4.50-5.90); RED CELL DISTRI WIDTH 18.7 % (0-14.5); WHITE BLOOD COUNT 9.6 10*3/uL (4.8-10.8)
[2022-01-15 15:12] LABS: MANUAL DIFF REFLEX YES
[2022-01-15 15:16] LABS: HEMATOCRIT 17.9 % (42.0-52.0)
[2022-01-15 15:21] LABS: ACT PARTIAL THROMBO TIME 30.7 SECONDS (20.0-32.1); INTERNATIONAL NORM RATIO 1.1 (2.0-3.5)
[2022-01-15 15:23] LABS: ALKALINE PHOSPHATASE 99 U/L (46-116); BUN 30 mg/dl (9-23); CHLORIDE 104 mmol/L (98-107); CREATININE 2.27 mg/dL (0.70-1.30); SODIUM 137 mmol/L (136-145)
[2022-01-15 15:24] LABS: TOTAL PROTEIN 6.5 gm/dL (6.0-8.0)
[2022-01-15 15:30] LABS: SGPT/ALT < 7 U/L (10-49)
[2022-01-15 15:38] LABS: TOTAL CELLS COUNTED 100 #CELLS
[2022-01-15 15:39] LABS: PLATELET SUFFICIENCY NORMAL (NORMAL); POLYCHROMASIA SLIGHT
[2022-01-15 22:57] LABS: HEMATOCRIT 27.6 % (42.0-52.0)
== END 2022-01-15 23:53 ==
LOC: ED 14:46
PROVIDERS: Emergency Medicine; Family Medicine
DX: D64.9 Anemia, unspecified (principal); Z88.8 Allergy status to other drugs, medicaments and biological substances; Z79.899 Other long term (current) drug therapy; Z98.890 Other specified postprocedural states; Z87.891 Personal history of nicotine dependence

== ENCOUNTER → 2022-02-01 | Outpatient (CLI) | payer OTHER ==
[2022-02-01 09:36] VITALS: BP 99/54
[2022-02-01 10:05] VITALS: BP 136/54
[2022-02-01 11:05] VITALS: BP 132/58
[2022-02-01 12:00] VITALS: BP 130/60
== END | disposition home or self-care (01) ==
LOC: TRNFUSION 01:23
PROVIDERS: ATTEND Student in an Organized Health Care Education/Training Program
DX: D50.9 Iron deficiency anemia, unspecified (principal); I11.0 Hypertensive heart disease with heart failure; I50.32 Chronic diastolic (congestive) heart failure; E11.65 Type 2 diabetes mellitus with hyperglycemia; E11.42 Type 2 diabetes mellitus with diabetic polyneuropathy; I25.10 Atherosclerotic heart disease of native coronary artery without angina pectoris; I48.91 Unspecified atrial fibrillation; E78.5 Hyperlipidemia, unspecified; K21.9 Gastro-esophageal reflux disease without esophagitis; Z79.4 Long term (current) use of insulin

== ENCOUNTER 2022-03-01 13:16 | Emergency (ER) | payer OTHER ==
[~2022-03-01] VITALS: Wt 98.5 kg
[2022-03-01 13:35] VITALS: BP 141/57
[2022-03-01 14:19] LABS: BILIRUBIN Negative (Negative); BLOOD Negative (Negative); CLARITY Turbid (Clear); COLOR Yellow (Yellow); GLUCOSE 2+ (Negative); KETONE Negative (Negative); LEUKO ESTERASE Negative (Negative); NITRITE Negative (Negative)
[2022-03-01 14:37] LABS: RBC 0-2 rbc/hpf (0-2); WBC 0-2 wbc/hpf (0-5)
[2022-03-01 14:43] LABS: HEMATOCRIT 25.6 % (42.0-52.0); MEAN CELL VOLUME 92.4 fl (80.0-94.0); MEAN CORPUSCULAR HGB 27.8 pg (27.0-31.0); MEAN CORPUSCULAR HGB CONC 30.1 g/dl (33.0-37.0); MEAN PLATELET VOLUME 10.1 fl (9.6-12.3); PLATELET COUNT AUTOMATED 280 10*3/uL (130-400); RED BLOOD COUNT 2.77 10*6/uL (4.50-5.90)
[2022-03-01 15:01] LABS: TOTAL PROTEIN 6.3 gm/dL (6.0-8.0)
[2022-03-01 15:04] LABS: MANUAL DIFF REFLEX YES
[2022-03-01 15:12] LABS: BASOPHILS 1 % (0-1); BURR CELLS FEW; PLATELET SUFFICIENCY NORMAL (NORMAL); TOTAL CELLS COUNTED 100 #CELLS
[2022-03-01 15:13] LABS: OVALOCYTES FEW
== END 2022-03-01 16:30 | disposition home or self-care (01) ==
LOC: ED 13:16
PROVIDERS: Emergency Medicine
DX: R41.0 Disorientation, unspecified (principal); Z88.8 Allergy status to other drugs, medicaments and biological substances; Z79.899 Other long term (current) drug therapy; Z98.890 Other specified postprocedural states; Z87.891 Personal history of nicotine dependence

== ENCOUNTER 2022-04-07 23:23 | Emergency (ER) | payer OTHER ==
[2022-04-07 23:30] VITALS: BP 156/58
[2022-04-07 23:57] LABS: BASO % 0.3 % (0.0-1.0); HEMATOCRIT 29.5 % (42.0-52.0); LYMPH # 0.4 10*3/uL (1.3-4.4); LYMPH % 5.3 % (27.0-41.0); MEAN CELL VOLUME 88.3 fl (80.0-94.0); MEAN CORPUSCULAR HGB 26.3 pg (27.0-31.0); MEAN CORPUSCULAR HGB CONC 29.8 g/dl (33.0-37.0); MEAN PLATELET VOLUME 10.1 fl (9.6-12.3); MONO # 0.9 10*3/uL (0.1-1.0); MONO % 14.2 % (3.0-9.0); NEUT # 5.2 10*3/uL (2.3-7.9); NEUT % 79.4 % (47.0-73.0); PLATELET COUNT AUTOMATED 264 10*3/uL (130-400); RED BLOOD COUNT 3.34 10*6/uL (4.50-5.90); RED CELL DISTRI WIDTH 16.5 % (0-14.5); WHITE BLOOD COUNT 6.6 10*3/uL (4.8-10.8)
[2022-04-08 00:14] LABS: ALKALINE PHOSPHATASE 75 U/L (46-116); BUN 37 mg/dl (9-23); CHLORIDE 109 mmol/L (98-107); POTASSIUM 4.8 mmol/L (3.4-5.1); TOTAL PROTEIN 6.9 gm/dL (6.0-8.0)
[2022-04-08 00:27] LABS: SGPT/ALT < 7 U/L (10-49)
[2022-04-08 00:46] LABS: BILIRUBIN Negative (Negative); BLOOD Trace-Lysed (Negative); CLARITY Clear (Clear); COLOR Yellow (Yellow); GLUCOSE 1+ (Negative); KETONE Negative (Negative); LEUKO ESTERASE Negative (Negative); NITRITE Negative (Negative); UROBILINOGEN 0.2 E.U./dl (0.0-1.0)
[2022-04-08 00:58] LABS: WBC 0-2 wbc/hpf (0-5); YEAST TRACE
[2022-04-10] MEDS ORDERED: OXYCODONE HCL10 M1 PO (10:49)
[2022-04-10] MEDS ORDERED: Methadone Hydro10 MG PO (10:54)
[2022-04-10] MEDS ORDERED: LOPRESSOR25 MG PO (11:00)
== END 2022-04-08 05:24 ==
LOC: ED 23:23
PROVIDERS: Internal Medicine
DX: R33.9 Retention of urine, unspecified (principal); K59.00 Constipation, unspecified; E44.0 Moderate protein-calorie malnutrition; D64.9 Anemia, unspecified; E11.22 Type 2 diabetes mellitus with diabetic chronic kidney disease; N18.32 Chronic kidney disease, stage 3b; I13.0 Hypertensive heart and chronic kidney disease with heart failure and stage 1 through stage 4 chronic kidney disease, or unspecified chronic kidney disease; I50.9 Heart failure, unspecified; I25.10 Atherosclerotic heart disease of native coronary artery without angina pectoris; Z88.5 Allergy status to narcotic agent; Z88.8 Allergy status to other drugs, medicaments and biological substances; Z98.890 Other specified postprocedural states; Z87.891 Personal history of nicotine dependence

== ENCOUNTER 2022-12-30 20:33 | Emergency (ER) | payer OTHER ==
[~2022-12-30] VITALS: Ht 175.2 cm; Wt 88.9 kg
[~2022-12-30 20:33] MED LIST changes: +'CLONIDINE0.1 MG PO; +APRESOLINE25 MG PO; +ARTIFICIAL TEA1 EACH OP; +ATORVASTATIN CA10 M1 PO; +ATORVASTATIN CA80 M1 PO; +CALCIUM500 M1 PO; +DOCUSATE SODIU100 M3 PO; +DULCOLAX10 M1 R; +FIBERCON625 MG PO; +FLEET ENEMA 13133 ML R; +GENTLE LAXATIVE10 MG R; +INSULIN LI100 UNIT/1 SC; +LAC-HYDRIN FIV226 GM T; +LOPRESSOR25 MG PO; +MEROPENEM-500 MG/50 IV; +MILK OF MA400 MG/5 M PO; +MIRTAZAPINE15 M2 PO; +NIFEDIPINE60 MG PO; +NOVOFINE AUTOC1 EACH MC; +OXYCODONE HCL10 M1 PO; +OXYCONTIN10 M1 PO; +PROTONIX IV40 MG IV; +RENA-VITE RX T1 EACH PO; +RENVELA800 MG PO; +TYLOPHEN500 M2 PO; +VANCOMYCIN1 GM/200 M IV; +VITAMIN C500 M8 PO; +VITAMIN D325 MCG PO; +ZOSYN 2.252.25 GM/51 IV
[2022-12-30 20:54] VITALS: BP 127/68
[2022-12-30 20:58] LABS: BASO % 0.4 % (0.0-1.0); EOS % 0.5 % (1.0-4.0); HEMATOCRIT 29.1 % (42.0-52.0); LYMPH # 0.9 10*3/uL (1.3-4.4); MEAN CELL VOLUME 82.7 fl (80.0-94.0); MEAN CORPUSCULAR HGB 26.1 pg (27.0-31.0); MEAN CORPUSCULAR HGB CONC 31.6 g/dl (33.0-37.0); MEAN PLATELET VOLUME 9.4 fl (9.6-12.3); MONO # 0.6 10*3/uL (0.1-1.0); MONO % 7.5 % (3.0-9.0); NEUT % 79.3 % (47.0-73.0); PLATELET COUNT AUTOMATED 279 10*3/uL (130-400); RED BLOOD COUNT 3.52 10*6/uL (4.50-5.90); RED CELL DISTRI WIDTH 17.2 % (0-14.5); WHITE BLOOD COUNT 7.5 10*3/uL (4.8-10.8)
[2022-12-30 21:12] LABS: ACT PARTIAL THROMBO TIME 29.4 SECONDS (20.0-32.1)
[2022-12-30 21:22] LABS: ALKALINE PHOSPHATASE 109 U/L (46-116); BUN 29 mg/dl (9-23); CHLORIDE 111 mmol/L (98-107); LIPASE 39 U/L (12-53); SGPT/ALT 14 U/L (5-49); TOTAL PROTEIN 6.7 gm/dL (6.0-8.0)
[2022-12-31 01:18] LABS: BILIRUBIN Negative (Negative); BLOOD 1+ (Negative); CLARITY Clear (Clear); COLOR Yellow (Yellow); GLUCOSE 2+ (Negative); KETONE Negative (Negative); LEUKO ESTERASE Negative (Negative); NITRITE Negative (Negative); UROBILINOGEN 0.2 E.U./dl (0.0-1.0)
[2022-12-31 01:48] LABS: BACTERIA TRACE
== END 2022-12-31 03:43 | disposition home or self-care (01) ==
LOC: ED 20:33
PROVIDERS: Internal Medicine
DX: R07.89 Other chest pain (principal); R10.30 Lower abdominal pain, unspecified; I11.0 Hypertensive heart disease with heart failure; I50.9 Heart failure, unspecified; E11.9 Type 2 diabetes mellitus without complications; I25.10 Atherosclerotic heart disease of native coronary artery without angina pectoris; I48.91 Unspecified atrial fibrillation; D64.9 Anemia, unspecified; E87.5 Hyperkalemia; F32.A Depression, unspecified; K21.9 Gastro-esophageal reflux disease without esophagitis; Z88.5 Allergy status to narcotic agent; Z88.8 Allergy status to other drugs, medicaments and biological substances; Z98.890 Other specified postprocedural states; Z95.5 Presence of coronary angioplasty implant and graft; Z87.891 Personal history of nicotine dependence

== ENCOUNTER 2023-01-06 10:54 | Emergency (ER) | payer OTHER ==
[~2023-01-06] VITALS: Wt 77.1 kg
[2023-01-06 10:55] VITALS: BP 122/45
[2023-01-06 11:54] LABS: BASO % 0.5 % (0.0-1.0); EOS # 0.1 10*3/uL (0.0-0.4); EOS % 0.7 % (1.0-4.0); HEMATOCRIT 29.5 % (42.0-52.0); LYMPH # 0.8 10*3/uL (1.3-4.4); LYMPH % 10.2 % (27.0-41.0); MEAN CORPUSCULAR HGB 26.2 pg (27.0-31.0); MEAN CORPUSCULAR HGB CONC 30.8 g/dl (33.0-37.0); MEAN PLATELET VOLUME 9.9 fl (9.6-12.3); MONO # 0.4 10*3/uL (0.1-1.0); MONO % 5.6 % (3.0-9.0); NEUT # 6.2 10*3/uL (2.3-7.9); NEUT % 82.7 % (47.0-73.0); PLATELET COUNT AUTOMATED 295 10*3/uL (130-400); RED BLOOD COUNT 3.47 10*6/uL (4.50-5.90); RED CELL DISTRI WIDTH 18.5 % (0-14.5); WHITE BLOOD COUNT 7.5 10*3/uL (4.8-10.8)
[2023-01-06 12:21] LABS: ALKALINE PHOSPHATASE 96 U/L (46-116); BUN 25 mg/dl (9-23); CHLORIDE 116 mmol/L (98-107); LIPASE 31 U/L (12-53); POTASSIUM 3.5 mmol/L (3.4-5.1); SGPT/ALT 8 U/L (5-49)
[2023-01-06] MEDS ORDERED: VIBRA-TAB100 MG PO (13:44)
== END 2023-01-06 15:54 | disposition home or self-care (01) ==
LOC: ED 10:54
PROVIDERS: Emergency Medicine
DX: S90.422A Blister (nonthermal), left great toe, initial encounter (principal); I11.0 Hypertensive heart disease with heart failure; I50.9 Heart failure, unspecified; E11.9 Type 2 diabetes mellitus without complications; I25.10 Atherosclerotic heart disease of native coronary artery without angina pectoris; I48.91 Unspecified atrial fibrillation; D64.9 Anemia, unspecified; E87.5 Hyperkalemia; F32.A Depression, unspecified; Z88.8 Allergy status to other drugs, medicaments and biological substances; Z98.890 Other specified postprocedural states; Z95.5 Presence of coronary angioplasty implant and graft; Z87.891 Personal history of nicotine dependence; X58.XXXA Exposure to other specified factors, initial encounter; Y93.89 Activity, other specified; Y92.89 Other specified places as the place of occurrence of the external cause; Y99.8 Other external cause status

== ENCOUNTER 2023-01-06 23:12 | Emergency (ER) | payer OTHER ==
[~2023-01-06 23:12] MED LIST changes: +VIBRA-TAB100 MG PO
== END 2023-01-07 01:00 | disposition left against medical advice (07) ==
LOC: ED 23:12
DX: R58 Hemorrhage, not elsewhere classified (principal); Z88.8 Allergy status to other drugs, medicaments and biological substances; Z53.21 Procedure and treatment not carried out due to patient leaving prior to being seen by health care provider

== ENCOUNTER → 2023-01-21 | Outpatient (CLI) | payer OTHER | END | disposition home or self-care (01) | LOC: WOUNDCARE 02:10 | PROVIDERS: ATTEND Nurse Practitioner Family | DX: E11.621 Type 2 diabetes mellitus with foot ulcer (principal); L97.511 Non-pressure chronic ulcer of other part of right foot limited to breakdown of skin; E11.51 Type 2 diabetes mellitus with diabetic peripheral angiopathy without gangrene; I87.2 Venous insufficiency (chronic) (peripheral); E11.40 Type 2 diabetes mellitus with diabetic neuropathy, unspecified; I11.0 Hypertensive heart disease with heart failure; I50.9 Heart failure, unspecified; R60.9 Edema, unspecified; G89.29 Other chronic pain; I25.10 Atherosclerotic heart disease of native coronary artery without angina pectoris; K21.9 Gastro-esophageal reflux disease without esophagitis; E78.5 Hyperlipidemia, unspecified; Z95.5 Presence of coronary angioplasty implant and graft; Z87.891 Personal history of nicotine dependence ==

== ENCOUNTER → 2023-05-23 | Outpatient (CLI) | payer OTHER ==
[~2023-05-23] MED LIST changes: +ATORVASTATIN CA40 M1 PO; +CLARITIN10 MG PO; +DOXYCYCLINE HY100 M3 PO; +IMDUR SA30 MG PO; +LACTULOSE20 GM/30 M PO; +Lasix80 MG PO; +OXYCODONE-ACET1 EACH PO; +ROPINIROLE HYD0.5 MG PO; +VIBRAMYCIN HYC100 MG PO; +ZOLPIDEM10 MG PO
[2023-05-23 15:32] LABS: BASO % 0.5 % (0.0-1.0); EOS # 0.1 10*3/uL (0.0-0.4); HEMATOCRIT 31.1 % (42.0-52.0); LYMPH # 0.7 10*3/uL (1.3-4.4); LYMPH % 8.3 % (27.0-41.0); MEAN CELL VOLUME 88.4 fl (80.0-94.0); MEAN CORPUSCULAR HGB 25.6 pg (27.0-31.0); MEAN CORPUSCULAR HGB CONC 28.9 g/dl (33.0-37.0); MONO # 0.6 10*3/uL (0.1-1.0); MONO % 7.2 % (3.0-9.0); NEUT # 6.7 10*3/uL (2.3-7.9); NEUT % 82.6 % (47.0-73.0); PLATELET COUNT AUTOMATED 328 10*3/uL (130-400); RED BLOOD COUNT 3.52 10*6/uL (4.50-5.90); RED CELL DISTRI WIDTH 16.6 % (0-14.5); WHITE BLOOD COUNT 8.2 10*3/uL (4.8-10.8)
[2023-05-23 15:43] LABS: URINE CREATININE RANDOM 27.02 mg/dL
[2023-05-23 15:55] LABS: POTASSIUM 4.3 mmol/L (3.4-5.1)
[2023-05-23 15:57] LABS: VITAMIN D, 25-HYDROXY 17.5 ng/mL (30-100)
[2023-05-23 15:59] LABS: BILIRUBIN Negative (Negative); CLARITY Clear (Clear); COLOR Yellow (Yellow); GLUCOSE 1+ (Negative); KETONE Trace (Negative); RBC 0-2 rbc/hpf (0-2); WBC 0-2 wbc/hpf (0-5)
[2023-05-23 16:00] LABS: BLOOD Negative (Negative); LEUKO ESTERASE Negative (Negative); MUCOUS 2+; NITRITE Negative (Negative); UROBILINOGEN 0.2 E.U./dl (0.0-1.0)
== END | disposition home or self-care (01) ==
LOC: LAB 00:20 → CT 15:00
PROVIDERS: Nurse Practitioner Family; ATTEND Student in an Organized Health Care Education/Training Program
DX: M47.812 Spondylosis without myelopathy or radiculopathy, cervical region (principal); J90 Pleural effusion, not elsewhere classified; M25.78 Osteophyte, vertebrae; M48.02 Spinal stenosis, cervical region; N18.30 Chronic kidney disease, stage 3 unspecified

== ENCOUNTER → 2023-07-11 | Outpatient (CLI) | payer OTHER ==
[~2023-07-11] MED LIST changes: +ISO D3 2,000 U1 EACH PO; +NEURONTIN100 MG PO; +ONDANSETRON4 MG SL; +Rocaltrol0.25 MCG PO
[2023-07-11 11:51] LABS: BASO % 0.6 % (0.0-1.0); EOS # 0.1 10*3/uL (0.0-0.4); EOS % 1.4 % (1.0-4.0); HEMATOCRIT 32.2 % (42.0-52.0); LYMPH # 0.9 10*3/uL (1.3-4.4); MEAN CELL VOLUME 85.6 fl (80.0-94.0); MEAN CORPUSCULAR HGB 24.5 pg (27.0-31.0); MEAN CORPUSCULAR HGB CONC 28.6 g/dl (33.0-37.0); MEAN PLATELET VOLUME 9.8 fl (9.6-12.3); MONO # 0.5 10*3/uL (0.1-1.0); MONO % 7.1 % (3.0-9.0); NEUT # 5.4 10*3/uL (2.3-7.9); NEUT % 77.6 % (47.0-73.0); PLATELET COUNT AUTOMATED 277 10*3/uL (130-400); RED BLOOD COUNT 3.76 10*6/uL (4.50-5.90); RED CELL DISTRI WIDTH 17.8 % (0-14.5)
[2023-07-11 12:08] LABS: POTASSIUM 3.9 mmol/L (3.4-5.1)
[2023-07-11 12:57] LABS: BILIRUBIN Negative (Negative); BLOOD 1+ (Negative); CLARITY Clear (Clear); COLOR Yellow (Yellow); GLUCOSE 2+ (Negative); KETONE Negative (Negative); LEUKO ESTERASE Negative (Negative); NITRITE Negative (Negative); PH 5.5 (4.5-8.0); SPECIFIC GRAVITY 1.015 (1.001-1.030); UROBILINOGEN 0.2 E.U./dl (0.0-1.0)
[2023-07-11 13:29] LABS: URINE CREATININE RANDOM 34.86 mg/dL
== END | disposition home or self-care (01) ==
LOC: LAB 11:17
PROVIDERS: ATTEND Nurse Practitioner Family
DX: N18.4 Chronic kidney disease, stage 4 (severe) (principal); R80.9 Proteinuria, unspecified; D63.1 Anemia in chronic kidney disease

== ENCOUNTER → 2023-08-06 | Outpatient (CLI) | payer OTHER | END | disposition home or self-care (01) | LOC: WOUNDCARE 01:24 | PROVIDERS: ATTEND Nurse Practitioner Family | DX: L89.312 Pressure ulcer of right buttock, stage 2 (principal); L89.152 Pressure ulcer of sacral region, stage 2; E11.51 Type 2 diabetes mellitus with diabetic peripheral angiopathy without gangrene; E11.40 Type 2 diabetes mellitus with diabetic neuropathy, unspecified; I11.0 Hypertensive heart disease with heart failure; I50.9 Heart failure, unspecified; I73.9 Peripheral vascular disease, unspecified; I87.2 Venous insufficiency (chronic) (peripheral); L43.9 Lichen planus, unspecified; I25.10 Atherosclerotic heart disease of native coronary artery without angina pectoris; K21.9 Gastro-esophageal reflux disease without esophagitis; G89.29 Other chronic pain; E78.5 Hyperlipidemia, unspecified; Z89.511 Acquired absence of right leg below knee; Z87.891 Personal history of nicotine dependence; Z79.4 Long term (current) use of insulin; Z79.899 Other long term (current) drug therapy ==

== ENCOUNTER 2023-08-09 18:01 | Inpatient (IN) | payer OTHER ==
[~2023-08-09] VITALS: Ht 177.8 cm; Wt 93.0 kg
[2023-08-09 18:17] VITALS: BP 187/77
[2023-08-09 18:59] LABS: BASO # 0.1 10*3/uL (0.0-0.1); BASO % 0.6 % (0.0-1.0); EOS # 0.1 10*3/uL (0.0-0.4); EOS % 0.7 % (1.0-4.0); HEMATOCRIT 32.9 % (42.0-52.0); LYMPH # 0.8 10*3/uL (1.3-4.4); LYMPH % 9.1 % (27.0-41.0); MEAN CELL VOLUME 82.5 fl (80.0-94.0); MEAN CORPUSCULAR HGB 24.1 pg (27.0-31.0); MEAN CORPUSCULAR HGB CONC 29.2 g/dl (33.0-37.0); MEAN PLATELET VOLUME 9.7 fl (9.6-12.3); MONO # 0.6 10*3/uL (0.1-1.0); MONO % 6.7 % (3.0-9.0); NEUT # 7.4 10*3/uL (2.3-7.9); NEUT % 82.3 % (47.0-73.0); PLATELET COUNT AUTOMATED 347 10*3/uL (130-400); RED BLOOD COUNT 3.99 10*6/uL (4.50-5.90); RED CELL DISTRI WIDTH 18.5 % (0-14.5); WHITE BLOOD COUNT 8.9 10*3/uL (4.8-10.8)
[2023-08-09 19:14] LABS: ACT PARTIAL THROMBO TIME 28.8 SECONDS (20.0-32.1); POTASSIUM 4.8 mmol/L (3.4-5.1); TOTAL PROTEIN 5.9 gm/dL (6.0-8.0)
[2023-08-09] MEDS ORDERED: FUROSEMIDE 40 MG/4 ML VIAL IV ONE (20:55)
[2023-08-09 21:34] LABS: BILIRUBIN Negative (Negative); BLOOD Trace-Lysed (Negative); CLARITY Clear (Clear); COLOR Yellow (Yellow); GLUCOSE 2+ (Negative); KETONE Negative (Negative); LEUKO ESTERASE Negative (Negative); NITRITE Negative (Negative); SPECIFIC GRAVITY 1.015 (1.001-1.030); UROBILINOGEN 0.2 E.U./dl (0.0-1.0)
[2023-08-09 21:43] LABS: BACTERIA 1+
[2023-08-09] MEDS ORDERED: Acetaminophen/Oxycodone Hydr 7.5 MG/325 MG TABLET PO ONE (22:20)
[2023-08-09] MEDS ORDERED: Ceftriaxone Sodium 1 GM/10 ML SYR IV ONE (22:25)
[2023-08-09] MEDS ORDERED: MAGNESIUM SULFATE 100 ML IV ONE (22:25)
[2023-08-09] MEDS ORDERED: Magnesium Hydroxide 30 ML UDC PO PRN (23:10)
[2023-08-09] MEDS ORDERED: Ondansetron Hydrochloride 4 MG/2 ML VIAL IV PRN (23:10)
[2023-08-09 23:30] VITALS: BP 182/77
[2023-08-09] MEDS ORDERED: MAGNESIUM SULFATE 50 ML IV ONE (23:30)
[2023-08-09] MEDS ORDERED: hydrALAZINE hydrochloride 20 MG/ML VIAL IV ONE (23:40)
[2023-08-10] VITALS (7 sets, daily range): BP systolic 112–163; BP diastolic 46–83
[2023-08-10] MEDS ORDERED: AZITHROMYCIN 250 ML IV SCH (00:55)
[2023-08-10] MEDS ORDERED: Albuterol Sulf/Ipratropium 3 ML VIAL NEB SCH (00:55)
[2023-08-10] MEDS ORDERED: GUAIFENESIN 600 MG TAB ER PO SCH (01:00)
[2023-08-10] MEDS ORDERED: methylPREDNISolone sod succ 40 MG VIAL IV SCH (01:00)
[2023-08-10] MEDS ORDERED: hydrALAZINE hydrochloride 50 MG TAB PO SCH (01:20)
[2023-08-10] MEDS ORDERED: OXYCODONE-ACET1 EACH PO (04:46)
[2023-08-10] MEDS ORDERED: FUROSEMIDE 40 MG/4 ML VIAL IV SCH (06:00)
[2023-08-10 06:09] LABS: BASO % 0.5 % (0.0-1.0); EOS # 0.1 10*3/uL (0.0-0.4); HEMATOCRIT 30.6 % (42.0-52.0); LYMPH # 1.1 10*3/uL (1.3-4.4); LYMPH % 12.7 % (27.0-41.0); MEAN CELL VOLUME 81.4 fl (80.0-94.0); MEAN CORPUSCULAR HGB 23.9 pg (27.0-31.0); MEAN CORPUSCULAR HGB CONC 29.4 g/dl (33.0-37.0); MEAN PLATELET VOLUME 9.7 fl (9.6-12.3); MONO # 0.7 10*3/uL (0.1-1.0); MONO % 8.4 % (3.0-9.0); NEUT # 6.4 10*3/uL (2.3-7.9); NEUT % 76.9 % (47.0-73.0); PLATELET COUNT AUTOMATED 298 10*3/uL (130-400); RED BLOOD COUNT 3.76 10*6/uL (4.50-5.90); RED CELL DISTRI WIDTH 18.5 % (0-14.5); WHITE BLOOD COUNT 8.3 10*3/uL (4.8-10.8)
[2023-08-10 06:29] LABS: POTASSIUM 4.1 mmol/L (3.4-5.1); TOTAL PROTEIN 5.3 gm/dL (6.0-8.0)
[2023-08-10] MEDS ORDERED: Acetaminophen/Oxycodone 5 MG/325 MG TABLET PO PRN (08:25)
[2023-08-10] MEDS ORDERED: HEPARIN SODIUM 5,000 UNIT/ML VIAL SC SCH (10:00)
[2023-08-10] MEDS ORDERED: ISOSORBIDE MONONITRATE 60 MG TAB PO SCH (10:00)
[2023-08-10] MEDS ORDERED: GABAPENTIN 100 MG CAP PO SCH (11:10)
[2023-08-10] MEDS ORDERED: SODIUM BICARBONATE 650 MG TAB PO SCH (18:00)
[2023-08-10] MEDS ORDERED: Ceftriaxone Sodium 1 GM in SYRINGE INFUSION 10 ML IV SCH (22:00)
[2023-08-11 02:01] VITALS: BP 134/84
[2023-08-11 02:15] VITALS: BP 162/80
[2023-08-11] MEDS ORDERED: LAC-HYDRIN FIV226 GM TP (02:33)
[2023-08-11] MEDS ORDERED: [UNRECOGNIZED DRUG - OTHER] TP (02:36)
[2023-08-11 06:08] LABS: BASO % 0.2 % (0.0-1.0); EOS % 0.1 % (1.0-4.0); HEMATOCRIT 28.3 % (42.0-52.0); LYMPH # 0.8 10*3/uL (1.3-4.4); LYMPH % 8.3 % (27.0-41.0); MEAN CELL VOLUME 80.2 fl (80.0-94.0); MEAN CORPUSCULAR HGB 24.4 pg (27.0-31.0); MEAN CORPUSCULAR HGB CONC 30.4 g/dl (33.0-37.0); MEAN PLATELET VOLUME 9.9 fl (9.6-12.3); MONO # 0.6 10*3/uL (0.1-1.0); MONO % 6.3 % (3.0-9.0); NEUT # 8.5 10*3/uL (2.3-7.9); NEUT % 84.6 % (47.0-73.0); PLATELET COUNT AUTOMATED 329 10*3/uL (130-400); RED BLOOD COUNT 3.53 10*6/uL (4.50-5.90); RED CELL DISTRI WIDTH 18.7 % (0-14.5); WHITE BLOOD COUNT 10.1 10*3/uL (4.8-10.8)
[2023-08-11 08:00] VITALS: BP 162/64
[2023-08-11] MEDS ORDERED: amLODIPine besylate 10 MG TAB PO SCH (10:00)
[2023-08-11] MEDS ORDERED: CARVEDILOL 3.125 MG TAB PO SCH (10:00)
[2023-08-11] MEDS ORDERED: Vitamin D 1,000 IU TAB (25 MCG) PO SCH (10:00)
[2023-08-11] MEDS ORDERED: hydrALAZINE hydrochloride 50 MG TAB PO SCH (10:00)
[2023-08-11] MEDS ORDERED: ISOSORBIDE MONONITRATE 60 MG TAB PO SCH (10:00)
[2023-08-11 12:00] VITALS: BP 182/62
[2023-08-11] MEDS ORDERED: Acetaminophen/Oxycodone Hydr 7.5 MG/325 MG TABLET PO PRN (13:40)
[2023-08-11 16:00] VITALS: BP 132/63
[2023-08-11] MEDS ORDERED: FOAM BANDAGE 1 EACH BANDAGE T ONE (18:47)
[2023-08-11 20:00] VITALS: BP 151/68
[2023-08-12] VITALS: BP 134/61
[2023-08-12 06:33] LABS: POTASSIUM 4.7 mmol/L (3.4-5.1)
[2023-08-12 06:36] LABS: BASO % 0.3 % (0.0-1.0); EOS # 0.1 10*3/uL (0.0-0.4); HEMATOCRIT 29.7 % (42.0-52.0); LYMPH # 1.2 10*3/uL (1.3-4.4); LYMPH % 12.5 % (27.0-41.0); MEAN CELL VOLUME 81.6 fl (80.0-94.0); MEAN CORPUSCULAR HGB 23.9 pg (27.0-31.0); MEAN CORPUSCULAR HGB CONC 29.3 g/dl (33.0-37.0); MEAN PLATELET VOLUME 10.6 fl (9.6-12.3); MONO # 0.5 10*3/uL (0.1-1.0); MONO % 5.4 % (3.0-9.0); NEUT # 7.7 10*3/uL (2.3-7.9); NEUT % 80.1 % (47.0-73.0); PLATELET COUNT AUTOMATED 335 10*3/uL (130-400); RED BLOOD COUNT 3.64 10*6/uL (4.50-5.90); RED CELL DISTRI WIDTH 18.8 % (0-14.5); WHITE BLOOD COUNT 9.6 10*3/uL (4.8-10.8)
[2023-08-12 08:00] VITALS: BP 170/67
[2023-08-12] MEDS ORDERED: CALCITRIOL 0.25 MCG CAP PO SCH (10:00)
[2023-08-12] MEDS ORDERED: Albuterol Sulf/Ipratropium 3 ML VIAL NEB PRN (11:00)
[2023-08-12 12:00] VITALS: BP 160/70
[2023-08-12] MEDS ORDERED: FOAM BANDAGE HEEL T ONE (12:44)
[2023-08-12] MEDS ORDERED: Menthol/Zinc Oxide 4 GM THIN T PRN (15:00)
[2023-08-12 16:00] VITALS: BP 157/66
[2023-08-12] MEDS ORDERED: FUROSEMIDE 40 MG TAB PO SCH (18:00)
[2023-08-12 20:00] VITALS: BP 154/74
[2023-08-12] MEDS ORDERED: NYSTATIN 15 GM BOT T SCH (22:00)
[2023-08-13] VITALS: BP 139/62
[2023-08-13 06:52] LABS: BASO % 0.5 % (0.0-1.0); EOS # 0.2 10*3/uL (0.0-0.4); EOS % 1.7 % (1.0-4.0); HEMATOCRIT 29.7 % (42.0-52.0); LYMPH % 11.8 % (27.0-41.0); MEAN CELL VOLUME 80.9 fl (80.0-94.0); MEAN CORPUSCULAR HGB 23.7 pg (27.0-31.0); MEAN CORPUSCULAR HGB CONC 29.3 g/dl (33.0-37.0); MEAN PLATELET VOLUME 9.5 fl (9.6-12.3); MONO # 0.5 10*3/uL (0.1-1.0); NEUT # 6.9 10*3/uL (2.3-7.9); NEUT % 79.3 % (47.0-73.0); PLATELET COUNT AUTOMATED 313 10*3/uL (130-400); RED BLOOD COUNT 3.67 10*6/uL (4.50-5.90); RED CELL DISTRI WIDTH 18.9 % (0-14.5); WHITE BLOOD COUNT 8.7 10*3/uL (4.8-10.8)
[2023-08-13 08:00] VITALS: BP 161/71
[2023-08-13] MEDS ORDERED: SODIUM POLYSTYRENE SULFONATE 15 GM/60 ML BOT PO ONE (08:25)
[2023-08-13] MEDS ORDERED: Menthol/Zinc Oxide 4 GM THIN T SCH (10:00)
[2023-08-13 12:00] VITALS: BP 163/61
[2023-08-13] MEDS ORDERED: AZITHROMYCIN 250 MG TAB PO ONE (13:35)
[2023-08-13] MEDS ORDERED: CALCITRIOL0.25 MCG PO (13:40)
[2023-08-13] MEDS ORDERED: HYDRALAZINE HYD50 MG PO (13:40)
[2023-08-13] MEDS ORDERED: MUCUS RELIEF600 MG PO (13:40)
[2023-08-13] MEDS ORDERED: OMNICEF300 MG PO (13:40)
[2023-08-13] MEDS ORDERED: VITAMIN D325 MC1 PO (13:40)
[2023-08-13] MEDS ORDERED: SODIUM BICARBO650 MG PO (13:42)
[2023-08-13] MEDS ORDERED: AZITHROMYCIN 250 MG TAB PO SCH (22:00)
== END 2023-08-13 17:20 | disposition home health service (06) | DRG 194 ==
LOC: ED 18:01 → 4E 22:26 → EDHOLD 22:26 → 4E 08-11 00:17
PROVIDERS: Internal Medicine; Nurse Practitioner Family; Student in an Organized Health Care Education/Training Program; ADMIT Internal Medicine; ATTEND Internal Medicine
DX: I13.0 Hypertensive heart and chronic kidney disease with heart failure and stage 1 through stage 4 chronic kidney disease, or unspecified chronic kidney disease (principal); I50.33 Acute on chronic diastolic (congestive) heart failure; N17.0 Acute kidney failure with tubular necrosis; J15.69 Pneumonia due to other Gram-negative bacteria; E43 Unspecified severe protein-calorie malnutrition; J44.0 Chronic obstructive pulmonary disease with (acute) lower respiratory infection; L89.312 Pressure ulcer of right buttock, stage 2; J90 Pleural effusion, not elsewhere classified; E87.20 Acidosis, unspecified; E83.42 Hypomagnesemia; N39.0 Urinary tract infection, site not specified; N18.4 Chronic kidney disease, stage 4 (severe); I25.10 Atherosclerotic heart disease of native coronary artery without angina pectoris; K21.9 Gastro-esophageal reflux disease without esophagitis; E11.51 Type 2 diabetes mellitus with diabetic peripheral angiopathy without gangrene; E11.42 Type 2 diabetes mellitus with diabetic polyneuropathy; E11.65 Type 2 diabetes mellitus with hyperglycemia; E11.22 Type 2 diabetes mellitus with diabetic chronic kidney disease; E87.8 Other disorders of electrolyte and fluid balance, not elsewhere classified; E78.2 Mixed hyperlipidemia; D64.9 Anemia, unspecified; Z88.6 Allergy status to analgesic agent; Z88.8 Allergy status to other drugs, medicaments and biological substances; Z95.5 Presence of coronary angioplasty implant and graft; Z89.511 Acquired absence of right leg below knee; Z68.29 Body mass index [BMI] 29.0-29.9, adult

== ENCOUNTER → 2023-08-28 | Outpatient (CLI) | payer OTHER ==
[~2023-08-28] MED LIST changes: +CALCITRIOL0.25 MCG PO; +LAC-HYDRIN FIV226 GM TP; +MUCUS RELIEF600 MG PO; +OMNICEF300 MG PO; +SODIUM BICARBO650 MG PO; +VITAMIN D325 MC1 PO; +[UNRECOGNIZED DRUG - OTHER] TP
== END | disposition home or self-care (01) ==
LOC: WOUNDCARE 01:17
PROVIDERS: ATTEND Nurse Practitioner Family
DX: E11.622 Type 2 diabetes mellitus with other skin ulcer (principal); L97.821 Non-pressure chronic ulcer of other part of left lower leg limited to breakdown of skin; L89.152 Pressure ulcer of sacral region, stage 2; E11.51 Type 2 diabetes mellitus with diabetic peripheral angiopathy without gangrene; E11.40 Type 2 diabetes mellitus with diabetic neuropathy, unspecified; I11.0 Hypertensive heart disease with heart failure; I50.9 Heart failure, unspecified; I87.2 Venous insufficiency (chronic) (peripheral); I25.10 Atherosclerotic heart disease of native coronary artery without angina pectoris; R60.9 Edema, unspecified; L43.9 Lichen planus, unspecified; K21.9 Gastro-esophageal reflux disease without esophagitis; E78.5 Hyperlipidemia, unspecified; Z87.891 Personal history of nicotine dependence; Z89.511 Acquired absence of right leg below knee; Z79.4 Long term (current) use of insulin; Z79.899 Other long term (current) drug therapy

== ENCOUNTER → 2023-09-04 | Outpatient (CLI) | payer OTHER ==
[2023-09-04 12:04] LABS: BASO % 0.4 % (0.0-1.0); EOS # 0.1 10*3/uL (0.0-0.4); EOS % 1.6 % (1.0-4.0); HEMATOCRIT 31.7 % (42.0-52.0); LYMPH # 0.8 10*3/uL (1.3-4.4); LYMPH % 11.7 % (27.0-41.0); MEAN CELL VOLUME 84.5 fl (80.0-94.0); MEAN CORPUSCULAR HGB CONC 28.4 g/dl (33.0-37.0); MEAN PLATELET VOLUME 9.6 fl (9.6-12.3); MONO # 0.6 10*3/uL (0.1-1.0); MONO % 8.7 % (3.0-9.0); NEUT # 5.2 10*3/uL (2.3-7.9); NEUT % 77.3 % (47.0-73.0); PLATELET COUNT AUTOMATED 245 10*3/uL (130-400); RED BLOOD COUNT 3.75 10*6/uL (4.50-5.90); WHITE BLOOD COUNT 6.8 10*3/uL (4.8-10.8)
[2023-09-04 12:14] LABS: BILIRUBIN Negative (Negative); BLOOD Trace-Lysed (Negative); CLARITY Clear (Clear); COLOR Yellow (Yellow); GLUCOSE 2+ (Negative); KETONE Negative (Negative); LEUKO ESTERASE Negative (Negative); NITRITE Negative (Negative); SPECIFIC GRAVITY 1.015 (1.001-1.030); UROBILINOGEN 0.2 E.U./dl (0.0-1.0)
[2023-09-04 12:24] LABS: URINE CREATININE RANDOM 38.01 mg/dL
[2023-09-04 12:28] LABS: BACTERIA 1+; EPITHELIAL CELLS 0-2; MUCOUS TRACE
[2023-09-04 12:31] LABS: POTASSIUM 4.1 mmol/L (3.4-5.1)
[2023-09-04 12:35] LABS: VITAMIN D, 25-HYDROXY 24.1 ng/mL (30-100)
== END | disposition home or self-care (01) ==
LOC: LAB 11:25
PROVIDERS: ATTEND Nurse Practitioner Family
DX: E55.9 Vitamin D deficiency, unspecified (principal); N25.81 Secondary hyperparathyroidism of renal origin; D63.1 Anemia in chronic kidney disease; N18.4 Chronic kidney disease, stage 4 (severe)

== ENCOUNTER 2023-09-17 16:22 | Inpatient (IN) | payer OTHER ==
[~2023-09-17] VITALS: Ht 177.8 cm; Wt 91.8 kg
[2023-09-17 16:39] VITALS: BP 141/48
[2023-09-17] MEDS ORDERED: AURYXIA210 MG PO (16:44)
[2023-09-17 17:35] LABS: BASO % 0.6 % (0.0-1.0); EOS # 0.1 10*3/uL (0.0-0.4); EOS % 0.8 % (1.0-4.0); HEMATOCRIT 31.7 % (42.0-52.0); LYMPH # 0.7 10*3/uL (1.3-4.4); LYMPH % 9.2 % (27.0-41.0); MEAN CELL VOLUME 84.1 fl (80.0-94.0); MEAN CORPUSCULAR HGB 24.1 pg (27.0-31.0); MEAN CORPUSCULAR HGB CONC 28.7 g/dl (33.0-37.0); MEAN PLATELET VOLUME 9.6 fl (9.6-12.3); MONO # 0.5 10*3/uL (0.1-1.0); MONO % 6.5 % (3.0-9.0); NEUT # 5.8 10*3/uL (2.3-7.9); NEUT % 82.3 % (47.0-73.0); PLATELET COUNT AUTOMATED 281 10*3/uL (130-400); RED BLOOD COUNT 3.77 10*6/uL (4.50-5.90); RED CELL DISTRI WIDTH 19.8 % (0-14.5); WHITE BLOOD COUNT 7.1 10*3/uL (4.8-10.8)
[2023-09-17 17:53] LABS: POTASSIUM 5.3 mmol/L (3.4-5.1); TOTAL PROTEIN 5.7 gm/dL (6.0-8.0)
[2023-09-17 18:49] LABS: BILIRUBIN Negative (Negative); BLOOD Negative (Negative); CLARITY Clear (Clear); COLOR Yellow (Yellow); GLUCOSE 2+ (Negative); KETONE Negative (Negative); LEUKO ESTERASE Negative (Negative); NITRITE Negative (Negative); PH 5.5 (4.5-8.0); SPECIFIC GRAVITY 1.015 (1.001-1.030); UROBILINOGEN 0.2 E.U./dl (0.0-1.0)
[2023-09-17 19:02] LABS: BACTERIA 1+; MUCOUS 1+; RBC 0-2 rbc/hpf (0-2)
[2023-09-17] MEDS ORDERED: FUROSEMIDE 40 MG/4 ML VIAL IV ONE (19:05)
[2023-09-17] MEDS ORDERED: Ondansetron Hydrochloride 4 MG/2 ML VIAL IV PRN (20:10)
[2023-09-17] MEDS ORDERED: ACETAMINOPHEN 325 MG TAB PO PRN (20:10)
[2023-09-17] MEDS ORDERED: BISACODYL 10 MG SUPP R PRN (20:10)
[2023-09-17] MEDS ORDERED: TEMAZEPAM 15 MG CAP PO PRN (20:10)
[2023-09-17] MEDS ORDERED: MORPHINE Sulfate 2 MG/ML SYR IV PRN (20:10)
[2023-09-17] MEDS ORDERED: Magnesium Hydroxide 30 ML UDC PO PRN (20:10)
[2023-09-17] MEDS ORDERED: BISACODYL 5 MG TAB PO PRN (20:10)
[2023-09-17] MEDS ORDERED: SODIUM POLYSTYRENE SULFONATE 15 GM/60 ML BOT PO ONE (20:50)
[2023-09-17 21:26] VITALS: BP 137/54
[2023-09-17] MEDS ORDERED: VANCOMYCIN/WATER FOR INJ (PEG) 400 ML IV SCH (22:00)
[2023-09-17] MEDS ORDERED: APIXABAN 5 MG TAB PO SCH (22:00)
[2023-09-17] MEDS ORDERED: DEXTROSE 10 % IN WATER 250 ML IV PRN (22:50)
[2023-09-17 23:30] VITALS: BP 153/64
[2023-09-18] VITALS: BP 150/55
[2023-09-18] MEDS ORDERED: Piperacillin Sodium/Tazobact 2.25 GM in SODIUM CHLORIDE 0.9% 50 ML IV SCH
[2023-09-18 06:10] VITALS: BP 122/48
[2023-09-18 07:02] LABS: BASO % 0.4 % (0.0-1.0); EOS % 0.5 % (1.0-4.0); HEMATOCRIT 30.8 % (42.0-52.0); LYMPH # 0.8 10*3/uL (1.3-4.4); MEAN CELL VOLUME 85.1 fl (80.0-94.0); MEAN CORPUSCULAR HGB CONC 28.2 g/dl (33.0-37.0); MEAN PLATELET VOLUME 10.9 fl (9.6-12.3); MONO # 0.7 10*3/uL (0.1-1.0); MONO % 8.3 % (3.0-9.0); NEUT # 6.8 10*3/uL (2.3-7.9); NEUT % 81.4 % (47.0-73.0); PLATELET COUNT AUTOMATED 287 10*3/uL (130-400); RED BLOOD COUNT 3.62 10*6/uL (4.50-5.90); RED CELL DISTRI WIDTH 19.6 % (0-14.5); WHITE BLOOD COUNT 8.3 10*3/uL (4.8-10.8)
[2023-09-18 07:23] LABS: FREE T4 0.83 ng/dl (0.89-1.76); POTASSIUM 4.8 mmol/L (3.4-5.1); TOTAL PROTEIN 5.4 gm/dL (6.0-8.0)
[2023-09-18] MEDS ORDERED: INSULIN LISPRO 1 UNIT/0.01 ML SQ SCH (07:30)
[2023-09-18 08:00] LABS: VITAMIN D, 25-HYDROXY 16.6 ng/mL (30-100)
[2023-09-18] MEDS ORDERED: BUMETANIDE 1 MG/4 ML VIAL IV SCH ×2 (10:00→16:30)
[2023-09-18] MEDS ORDERED: GABAPENTIN 100 MG CAP PO SCH (10:45)
[2023-09-18] MEDS ORDERED: Acetaminophen/Oxycodone Hydr 7.5 MG/325 MG TABLET PO SCH (10:45)
[2023-09-18 12:00] VITALS: BP 115/43
[2023-09-18 16:00] VITALS: BP 150/55
[2023-09-18] MEDS ORDERED: AURYXIA 210 MG PO SCH (17:00)
[2023-09-18] MEDS ORDERED: MED. FROM HOME 1 EACH EA PO SCH (19:03)
[2023-09-18 20:00] VITALS: BP 147/46
[2023-09-18] MEDS ORDERED: NYSTATIN 15 GM BOT T SCH (22:00)
[2023-09-18] MEDS ORDERED: CARVEDILOL 3.125 MG TAB PO SCH (22:00)
[2023-09-18] MEDS ORDERED: Acetaminophen/Oxycodone Hydr 7.5 MG/325 MG TABLET PO PRN (22:05)
[2023-09-19] VITALS (15 sets, daily range): BP systolic 138–180; BP diastolic 53–69
[2023-09-19] MEDS ORDERED: CHAIR CUSHION DEVICE ONE (00:07)
[2023-09-19] MEDS ORDERED: HEEL PROTECTOR DEVICE ONE (00:07)
[2023-09-19 05:43] LABS: POTASSIUM 5.1 mmol/L (3.4-5.1); TOTAL PROTEIN 5.5 gm/dL (6.0-8.0)
[2023-09-19 05:57] LABS: BASO % 0.5 % (0.0-1.0); EOS # 0.1 10*3/uL (0.0-0.4); HEMATOCRIT 30.9 % (42.0-52.0); LYMPH # 0.7 10*3/uL (1.3-4.4); LYMPH % 10.4 % (27.0-41.0); MEAN CELL VOLUME 85.1 fl (80.0-94.0); MEAN CORPUSCULAR HGB CONC 28.2 g/dl (33.0-37.0); MEAN PLATELET VOLUME 10.5 fl (9.6-12.3); MONO # 0.8 10*3/uL (0.1-1.0); MONO % 11.6 % (3.0-9.0); NEUT % 74.9 % (47.0-73.0); PLATELET COUNT AUTOMATED 276 10*3/uL (130-400); RED BLOOD COUNT 3.63 10*6/uL (4.50-5.90); RED CELL DISTRI WIDTH 19.7 % (0-14.5); WHITE BLOOD COUNT 6.7 10*3/uL (4.8-10.8)
[2023-09-19] MEDS ORDERED: Midazolam Hydrochloride 5 MG/5 ML VIAL ONE (09:35)
[2023-09-19] MEDS ORDERED: fentaNYL CITRATE 100 MCG/2 ML VIAL ONE (09:36)
[2023-09-19] MEDS ORDERED: Lidocaine Hydrochloride 30 ML VIAL ONE (09:45)
[2023-09-19] MEDS ORDERED: SODIUM BICARBONATE 50 MEQ/50 ML VIAL IV ONE (09:46)
[2023-09-19] MEDS ORDERED: SODIUM CHLORIDE 0.9% 100 ML IV ONE (09:46)
[2023-09-19] MEDS ORDERED: HEPARIN SODIUM 300 UNITS/3 ML SYR IV ONE ×2 (09:46→09:48)
[2023-09-19] MEDS ORDERED: EPOETIN ALFA EPBX IV ONE (09:50)
[2023-09-19] MEDS ORDERED: ALBUMIN 25% 50 ML IV PRN (09:55)
[2023-09-19] MEDS ORDERED: HEPARIN SODIUM 10,000 UN/10 ML VIAL IV SCH (09:55)
[2023-09-19] MEDS ORDERED: MANNITOL 12.5 GM/50 ML VIAL IV SCH (09:55)
[2023-09-19] MEDS ORDERED: SODIUM CHLORIDE 0.9% 1,000 ML IV SCH (09:55)
[2023-09-19] MEDS ORDERED: SODIUM CHLORIDE 23.4% 120 MEQ/30 ML VIAL IV SCH (09:55)
[2023-09-19] MEDS ORDERED: HEPARIN SODIUM 5,000 UNIT/ML VIAL IV SCH (09:55)
[2023-09-19] MEDS ORDERED: IOHEXOL 300 MG/ML 100 ML VIAL ONE (09:56)
[2023-09-19] MEDS ORDERED: amLODIPine besylate 10 MG TAB PO SCH (10:00)
[2023-09-19] MEDS ORDERED: ISOSORBIDE MONONITRATE 60 MG TAB PO SCH (10:00)
[2023-09-19] MEDS ORDERED: Cholecalciferol 2,000 UNIT TABLET (50 MCG) PO SCH ×2 (10:00)
[2023-09-19] MEDS ORDERED: hydrALAZINE hydrochloride 50 MG TAB PO SCH (10:00)
[2023-09-19] MEDS ORDERED: Midazolam Hydrochloride 2 MG/2 ML VIAL IV ONE (11:05)
[2023-09-19] MEDS ORDERED: MORPHINE Sulfate 2 MG/ML SYR IV PRN (11:23)
[2023-09-19] MEDS ORDERED: MORPHINE Sulfate 2 MG/ML SYR IV ONE (11:25)
[2023-09-19] MEDS ORDERED: FOAM BANDAGE 1 EACH BANDAGE T ONE ×2 (12:53→18:56)
[2023-09-19] MEDS ORDERED: FOAM BANDAGE HEEL T ONE ×2 (13:01→18:56)
[2023-09-19] MEDS ORDERED: EPOETIN ALFA-EPBX 10,000 UNIT/ML VIAL IV ONE (14:00)
[2023-09-20] VITALS: BP 175/53
[2023-09-20 05:07] LABS: HBSAG Negative (Negative); HEP B CORE AB, IGM Negative (Negative); HEPATITIS C ANTIBODY Non Reactive (Non Reactive)
[2023-09-20 06:15] LABS: POTASSIUM 4.6 mmol/L (3.4-5.1); TOTAL PROTEIN 5.4 gm/dL (6.0-8.0)
[2023-09-20 06:22] VITALS: BP 164/60
[2023-09-20 06:56] LABS: BASO % 0.3 % (0.0-1.0); EOS # 0.1 10*3/uL (0.0-0.4); EOS % 1.9 % (1.0-4.0); HEMATOCRIT 28.9 % (42.0-52.0); LYMPH # 0.8 10*3/uL (1.3-4.4); LYMPH % 11.1 % (27.0-41.0); MEAN CELL VOLUME 82.6 fl (80.0-94.0); MEAN CORPUSCULAR HGB 24.3 pg (27.0-31.0); MEAN CORPUSCULAR HGB CONC 29.4 g/dl (33.0-37.0); MONO # 0.9 10*3/uL (0.1-1.0); MONO % 12.9 % (3.0-9.0); NEUT % 73.4 % (47.0-73.0); PLATELET COUNT AUTOMATED 242 10*3/uL (130-400); RED CELL DISTRI WIDTH 19.5 % (0-14.5); WHITE BLOOD COUNT 6.8 10*3/uL (4.8-10.8)
[2023-09-20] MEDS ORDERED: EPOETIN ALFA-EPBX 10,000 UNIT/ML VIAL IV ONE (07:30)
[2023-09-20] MEDS ORDERED: SODIUM CHLORIDE 0.9% 1,000 ML BAG IV ONE (09:43)
[2023-09-20] MEDS ORDERED: HEPARIN SODIUM 10,000 UN/10 ML VIAL IV ONE (09:43)
[2023-09-20] MEDS ORDERED: APIXABAN 5 MG TAB PO SCH (10:00)
[2023-09-20] MEDS ORDERED: CALCITRIOL 0.25 MCG CAP PO SCH ×2 (10:00)
[2023-09-20 12:00] VITALS: BP 179/64; BP 189/64
[2023-09-20] MEDS ORDERED: hydrALAZINE hydrochloride 50 MG TAB PO SCH (12:15)
[2023-09-20 16:00] VITALS: BP 191/65
[2023-09-20 17:55] VITALS: BP 158/66
[2023-09-20 20:00] VITALS: BP 171/68
[2023-09-20] MEDS ORDERED: Scopolamine 1 PATCH PATCH T SCH (21:50)
[2023-09-20] MEDS ORDERED: Technetium Tc 99M Mebrofenin 1 KIT KIT IV SCH (22:00)
[2023-09-20] MEDS ORDERED: SINCALIDE 5 MCG VIAL IV SCH (22:00)
[2023-09-21] VITALS: BP 166/64
[2023-09-21] MEDS ORDERED: Pantoprazole Sodium 40 MG TAB PO SCH (06:00)
[2023-09-21 06:10] VITALS: BP 175/64
[2023-09-21 06:17] VITALS: BP 158/56
[2023-09-21 06:44] LABS: BASO % 0.3 % (0.0-1.0); EOS % 0.3 % (1.0-4.0); HEMATOCRIT 32.2 % (42.0-52.0); LYMPH # 0.7 10*3/uL (1.3-4.4); LYMPH % 9.9 % (27.0-41.0); MEAN CELL VOLUME 81.1 fl (80.0-94.0); MEAN CORPUSCULAR HGB 24.4 pg (27.0-31.0); MEAN CORPUSCULAR HGB CONC 30.1 g/dl (33.0-37.0); MEAN PLATELET VOLUME 10.2 fl (9.6-12.3); MONO # 0.7 10*3/uL (0.1-1.0); MONO % 9.1 % (3.0-9.0); PLATELET COUNT AUTOMATED 256 10*3/uL (130-400); RED BLOOD COUNT 3.97 10*6/uL (4.50-5.90); RED CELL DISTRI WIDTH 19.4 % (0-14.5); WHITE BLOOD COUNT 7.5 10*3/uL (4.8-10.8)
[2023-09-21 08:00] VITALS: BP 139/52
[2023-09-21 08:20] LABS: POTASSIUM 3.7 mmol/L (3.4-5.1)
[2023-09-21] MEDS ORDERED: HEPARIN SODIUM 10,000 UN/10 ML VIAL IV ONE (09:04)
[2023-09-21] MEDS ORDERED: SODIUM CHLORIDE 0.9% 1,000 ML BAG IV ONE (09:04)
[2023-09-21] MEDS ORDERED: EPOETIN ALFA EPBX SC ONE (10:15)
[2023-09-21] MEDS ORDERED: INFUSION IV ONE (10:30)
[2023-09-21] MEDS ORDERED: EPOETIN ALFA EPBX IV ONE (10:30)
[2023-09-21 16:00] VITALS: BP 154/70
[2023-09-21 20:00] VITALS: BP 165/56
[2023-09-22 00:12] VITALS: BP 162/59
[2023-09-22 08:00] VITALS: BP 153/60
[2023-09-22] MEDS ORDERED: SODIUM CHLORIDE 0.9% 1,000 ML BAG IV ONE (08:38)
[2023-09-22] MEDS ORDERED: Gelatin Sponge 1 EACH SPON T ONE (08:38)
[2023-09-22] MEDS ORDERED: HEPARIN SODIUM 10,000 UN/10 ML VIAL IV ONE (08:38)
[2023-09-22 12:00] VITALS: BP 144/51
[2023-09-22 16:00] VITALS: BP 158/53
[2023-09-22 20:00] VITALS: BP 107/67
[2023-09-23] VITALS: BP 154/55
[2023-09-23] MEDS ORDERED: FOAM BANDAGE 1 EACH BANDAGE T ONE (02:16)
[2023-09-23 06:45] LABS: BASO % 0.3 % (0.0-1.0); EOS # 0.1 10*3/uL (0.0-0.4); EOS % 1.4 % (1.0-4.0); HEMATOCRIT 30.1 % (42.0-52.0); LYMPH # 0.9 10*3/uL (1.3-4.4); MEAN CELL VOLUME 82.7 fl (80.0-94.0); MEAN CORPUSCULAR HGB 24.2 pg (27.0-31.0); MEAN CORPUSCULAR HGB CONC 29.2 g/dl (33.0-37.0); MEAN PLATELET VOLUME 10.2 fl (9.6-12.3); MONO # 0.8 10*3/uL (0.1-1.0); MONO % 10.6 % (3.0-9.0); NEUT # 5.3 10*3/uL (2.3-7.9); NEUT % 74.4 % (47.0-73.0); PLATELET COUNT AUTOMATED 245 10*3/uL (130-400); RED BLOOD COUNT 3.64 10*6/uL (4.50-5.90); WHITE BLOOD COUNT 7.1 10*3/uL (4.8-10.8)
[2023-09-23 06:53] LABS: TOTAL PROTEIN 5.5 gm/dL (6.0-8.0)
[2023-09-23 06:57] LABS: POTASSIUM 4.7 mmol/L (3.4-5.1)
[2023-09-23 08:00] VITALS: BP 162/55
[2023-09-23] MEDS ORDERED: SINCALIDE 5 MCG VIAL IV SCH (09:15)
[2023-09-23] MEDS ORDERED: Technetium Tc 99M Mebrofenin 1 KIT KIT IV SCH (09:15)
[2023-09-23] MEDS ORDERED: SINCALIDE 1.9 MCG in SODIUM CHLORIDE 0.9% 50 ML IV ONE (09:25)
[2023-09-23 12:00] VITALS: BP 171/63
[2023-09-23] MEDS ORDERED: NYAMYC15 GM T (14:29)
[2023-09-23] MEDS ORDERED: VITAMIN D350 MCG PO (14:29)
[2023-09-23] MEDS ORDERED: ELIQUIS5 M1 PO (14:29)
[2023-09-23] MEDS ORDERED: BUMETANIDE2 MG PO (14:29)
[2023-09-23] MEDS ORDERED: OXYCODONE-ACET1 EACH PO (14:29)
[2023-09-23] MEDS ORDERED: NORVASC5 MG PO (14:29)
[2023-09-23] MEDS ORDERED: NEURONTIN100 MG PO (14:29)
[2023-09-23 16:00] VITALS: BP 159/68
[2023-09-23] MEDS ORDERED: COLACE100 MG PO (16:01)
== END 2023-09-23 18:54 | DRG 194 ==
LOC: ED 16:22 → 4E 20:03 → EDHOLD 20:03 → 4E 09-18 16:21
PROVIDERS: Internal Medicine Nephrology; Physician Assistant Medical; Student in an Organized Health Care Education/Training Program; ADMIT Internal Medicine; ATTEND Internal Medicine
PROC: 5A1D70Z Performance of Urinary Filtration, Intermittent, Less than 6 Hours Per Day (ICD-10-PCS; principal; 2023-09-19)
PROC: 5A1D70Z Performance of Urinary Filtration, Intermittent, Less than 6 Hours Per Day (ICD-10-PCS; 2023-09-20)
DX: I13.0 Hypertensive heart and chronic kidney disease with heart failure and stage 1 through stage 4 chronic kidney disease, or unspecified chronic kidney disease (principal); I50.33 Acute on chronic diastolic (congestive) heart failure; N18.6 End stage renal disease; N17.0 Acute kidney failure with tubular necrosis; R18.8 Other ascites; E43 Unspecified severe protein-calorie malnutrition; J91.8 Pleural effusion in other conditions classified elsewhere; L89.322 Pressure ulcer of left buttock, stage 2; K21.9 Gastro-esophageal reflux disease without esophagitis; K80.70 Calculus of gallbladder and bile duct without cholecystitis without obstruction; E11.22 Type 2 diabetes mellitus with diabetic chronic kidney disease; I25.10 Atherosclerotic heart disease of native coronary artery without angina pectoris; E78.5 Hyperlipidemia, unspecified; E11.51 Type 2 diabetes mellitus with diabetic peripheral angiopathy without gangrene; E11.42 Type 2 diabetes mellitus with diabetic polyneuropathy; E83.42 Hypomagnesemia; E87.8 Other disorders of electrolyte and fluid balance, not elsewhere classified; E11.65 Type 2 diabetes mellitus with hyperglycemia; D50.9 Iron deficiency anemia, unspecified; J44.9 Chronic obstructive pulmonary disease, unspecified; E78.2 Mixed hyperlipidemia; I25.118 Atherosclerotic heart disease of native coronary artery with other forms of angina pectoris; M89.8X9 Other specified disorders of bone, unspecified site; I87.8 Other specified disorders of veins; Z79.899 Other long term (current) drug therapy; Z79.01 Long term (current) use of anticoagulants; Z79.2 Long term (current) use of antibiotics; Z88.8 Allergy status to other drugs, medicaments and biological substances; Z91.09 Other allergy status, other than to drugs and biological substances; Z87.891 Personal history of nicotine dependence; Z68.30 Body mass index [BMI] 30.0-30.9, adult

== ENCOUNTER → 2023-12-17 | Outpatient (CLI) | payer OTHER ==
[~2023-12-17] MED LIST changes: +AURYXIA210 MG PO; +COLACE100 MG PO; +NORVASC5 MG PO; +NYAMYC15 GM T; +VITAMIN D350 MCG PO
== END | disposition home or self-care (01) ==
LOC: WOUNDCARE 04:57
PROVIDERS: ATTEND Nurse Practitioner Family
DX: E11.622 Type 2 diabetes mellitus with other skin ulcer (principal); L97.822 Non-pressure chronic ulcer of other part of left lower leg with fat layer exposed; L89.893 Pressure ulcer of other site, stage 3; L89.626 Pressure-induced deep tissue damage of left heel; E11.22 Type 2 diabetes mellitus with diabetic chronic kidney disease; I13.0 Hypertensive heart and chronic kidney disease with heart failure and stage 1 through stage 4 chronic kidney disease, or unspecified chronic kidney disease; N18.9 Chronic kidney disease, unspecified; L43.9 Lichen planus, unspecified; I50.9 Heart failure, unspecified; E11.51 Type 2 diabetes mellitus with diabetic peripheral angiopathy without gangrene; E11.40 Type 2 diabetes mellitus with diabetic neuropathy, unspecified; E78.5 Hyperlipidemia, unspecified; R60.9 Edema, unspecified; K21.9 Gastro-esophageal reflux disease without esophagitis; I25.10 Atherosclerotic heart disease of native coronary artery without angina pectoris; G89.29 Other chronic pain; I87.2 Venous insufficiency (chronic) (peripheral); Z95.5 Presence of coronary angioplasty implant and graft

== ENCOUNTER → 2023-12-31 | Outpatient (CLI) | payer OTHER | END | disposition home or self-care (01) | LOC: WOUNDCARE 12-27 02:38 | PROVIDERS: ATTEND Nurse Practitioner Family | DX: L89.893 Pressure ulcer of other site, stage 3 (principal); L89.626 Pressure-induced deep tissue damage of left heel; L89.301 Pressure ulcer of unspecified buttock, stage 1; E11.622 Type 2 diabetes mellitus with other skin ulcer; L97.821 Non-pressure chronic ulcer of other part of left lower leg limited to breakdown of skin; E11.40 Type 2 diabetes mellitus with diabetic neuropathy, unspecified; I11.0 Hypertensive heart disease with heart failure; I50.9 Heart failure, unspecified; I87.2 Venous insufficiency (chronic) (peripheral); I25.10 Atherosclerotic heart disease of native coronary artery without angina pectoris; R60.9 Edema, unspecified; L43.9 Lichen planus, unspecified; K21.9 Gastro-esophageal reflux disease without esophagitis; E78.5 Hyperlipidemia, unspecified; Z87.891 Personal history of nicotine dependence; Z89.511 Acquired absence of right leg below knee; Z79.4 Long term (current) use of insulin; Z79.899 Other long term (current) drug therapy ==

== ENCOUNTER → 2024-01-21 | Outpatient (CLI) | payer OTHER | END | disposition home or self-care (01) | LOC: WOUNDCARE 01-07 02:14 | PROVIDERS: ATTEND Nurse Practitioner Family | DX: L89.894 Pressure ulcer of other site, stage 4 (principal); L89.626 Pressure-induced deep tissue damage of left heel; L89.301 Pressure ulcer of unspecified buttock, stage 1; E11.622 Type 2 diabetes mellitus with other skin ulcer; L97.821 Non-pressure chronic ulcer of other part of left lower leg limited to breakdown of skin; L03.116 Cellulitis of left lower limb; E11.40 Type 2 diabetes mellitus with diabetic neuropathy, unspecified; E11.51 Type 2 diabetes mellitus with diabetic peripheral angiopathy without gangrene; I11.0 Hypertensive heart disease with heart failure; I50.9 Heart failure, unspecified; I87.2 Venous insufficiency (chronic) (peripheral); I25.10 Atherosclerotic heart disease of native coronary artery without angina pectoris; R60.9 Edema, unspecified; L43.9 Lichen planus, unspecified; K21.9 Gastro-esophageal reflux disease without esophagitis; E78.5 Hyperlipidemia, unspecified; Z87.891 Personal history of nicotine dependence; Z89.511 Acquired absence of right leg below knee; Z79.4 Long term (current) use of insulin; Z79.899 Other long term (current) drug therapy ==

== ENCOUNTER → 2024-01-28 | Outpatient (CLI) | payer OTHER ==
[2024-01-28 12:45] LABS: BASO % 0.4 % (0.0-1.0); EOS # 0.1 10*3/uL (0.0-0.4); MEAN CORPUSCULAR HGB 26.9 pg (27.0-31.0); MEAN CORPUSCULAR HGB CONC 30.6 g/dl (33.0-37.0); MONO # 0.7 10*3/uL (0.1-1.0); MONO % 8.3 % (3.0-9.0); NEUT # 6.4 10*3/uL (2.3-7.9); NEUT % 80.7 % (47.0-73.0); PLATELET COUNT AUTOMATED 215 10*3/uL (130-400); RED BLOOD COUNT 3.75 10*6/uL (4.50-5.90); RED CELL DISTRI WIDTH 17.8 % (0-14.5); WHITE BLOOD COUNT 7.9 10*3/uL (4.8-10.8)
[2024-01-28 13:34] LABS: POTASSIUM 4.5 mmol/L (3.4-5.1)
== END | disposition home or self-care (01) ==
LOC: WOUNDCARE 02:33
PROVIDERS: ATTEND Nurse Practitioner Family
DX: L89.894 Pressure ulcer of other site, stage 4 (principal); L89.626 Pressure-induced deep tissue damage of left heel; E11.622 Type 2 diabetes mellitus with other skin ulcer; I70.248 Atherosclerosis of native arteries of left leg with ulceration of other part of lower leg; L97.821 Non-pressure chronic ulcer of other part of left lower leg limited to breakdown of skin; E11.621 Type 2 diabetes mellitus with foot ulcer; I70.245 Atherosclerosis of native arteries of left leg with ulceration of other part of foot; L97.521 Non-pressure chronic ulcer of other part of left foot limited to breakdown of skin; L03.116 Cellulitis of left lower limb; E11.40 Type 2 diabetes mellitus with diabetic neuropathy, unspecified; E11.51 Type 2 diabetes mellitus with diabetic peripheral angiopathy without gangrene; I11.0 Hypertensive heart disease with heart failure; I50.9 Heart failure, unspecified; I87.2 Venous insufficiency (chronic) (peripheral); I25.10 Atherosclerotic heart disease of native coronary artery without angina pectoris; M81.8 Other osteoporosis without current pathological fracture; I44.7 Left bundle-branch block, unspecified; R60.9 Edema, unspecified; L43.9 Lichen planus, unspecified; K21.9 Gastro-esophageal reflux disease without esophagitis; E78.5 Hyperlipidemia, unspecified; Z87.891 Personal history of nicotine dependence; Z89.511 Acquired absence of right leg below knee; Z79.4 Long term (current) use of insulin; Z79.899 Other long term (current) drug therapy

== ENCOUNTER → 2024-02-03 | Outpatient (CLI) | payer OTHER | END | disposition home or self-care (01) | LOC: WOUNDCARE 00:47 | PROVIDERS: ATTEND Nurse Practitioner Family | DX: L89.894 Pressure ulcer of other site, stage 4 (principal); L89.626 Pressure-induced deep tissue damage of left heel; L89.301 Pressure ulcer of unspecified buttock, stage 1; E11.622 Type 2 diabetes mellitus with other skin ulcer; I70.248 Atherosclerosis of native arteries of left leg with ulceration of other part of lower leg; L97.821 Non-pressure chronic ulcer of other part of left lower leg limited to breakdown of skin; E11.621 Type 2 diabetes mellitus with foot ulcer; I70.245 Atherosclerosis of native arteries of left leg with ulceration of other part of foot; L97.521 Non-pressure chronic ulcer of other part of left foot limited to breakdown of skin; L03.116 Cellulitis of left lower limb; E11.40 Type 2 diabetes mellitus with diabetic neuropathy, unspecified; E11.51 Type 2 diabetes mellitus with diabetic peripheral angiopathy without gangrene; I11.0 Hypertensive heart disease with heart failure; I50.9 Heart failure, unspecified; I87.2 Venous insufficiency (chronic) (peripheral); I25.10 Atherosclerotic heart disease of native coronary artery without angina pectoris; M81.8 Other osteoporosis without current pathological fracture; I44.7 Left bundle-branch block, unspecified; R60.9 Edema, unspecified; L43.9 Lichen planus, unspecified; K21.9 Gastro-esophageal reflux disease without esophagitis; E78.5 Hyperlipidemia, unspecified; Z87.891 Personal history of nicotine dependence; Z89.511 Acquired absence of right leg below knee; Z79.4 Long term (current) use of insulin; Z79.899 Other long term (current) drug therapy ==

== ENCOUNTER → 2024-02-11 | Outpatient (CLI) | payer OTHER ==
[~2024-02-11] MED LIST changes: +FUROSEMIDE20 M1 PO
== END | disposition home or self-care (01) ==
LOC: WOUNDCARE 00:26
PROVIDERS: ATTEND Nurse Practitioner Primary Care
DX: L89.894 Pressure ulcer of other site, stage 4 (principal); L89.623 Pressure ulcer of left heel, stage 3; L89.301 Pressure ulcer of unspecified buttock, stage 1; E11.621 Type 2 diabetes mellitus with foot ulcer; I70.245 Atherosclerosis of native arteries of left leg with ulceration of other part of foot; L97.521 Non-pressure chronic ulcer of other part of left foot limited to breakdown of skin; I87.2 Venous insufficiency (chronic) (peripheral); L03.116 Cellulitis of left lower limb; L43.9 Lichen planus, unspecified; E11.51 Type 2 diabetes mellitus with diabetic peripheral angiopathy without gangrene; I13.0 Hypertensive heart and chronic kidney disease with heart failure and stage 1 through stage 4 chronic kidney disease, or unspecified chronic kidney disease; E11.22 Type 2 diabetes mellitus with diabetic chronic kidney disease; N18.9 Chronic kidney disease, unspecified; I50.9 Heart failure, unspecified; E11.40 Type 2 diabetes mellitus with diabetic neuropathy, unspecified; I25.10 Atherosclerotic heart disease of native coronary artery without angina pectoris; E78.5 Hyperlipidemia, unspecified; K21.9 Gastro-esophageal reflux disease without esophagitis; G89.29 Other chronic pain; R60.9 Edema, unspecified; Z87.891 Personal history of nicotine dependence; Z89.511 Acquired absence of right leg below knee; Z98.890 Other specified postprocedural states; Z79.899 Other long term (current) drug therapy

== ENCOUNTER 2024-03-09 11:30 | Emergency (ER) | payer OTHER ==
[~2024-03-09] VITALS: Ht 177.8 cm; Wt 94.3 kg
[2024-03-09] MEDS ORDERED: ATORVASTATIN CA20 M1 PO (12:04)
[2024-03-09] MEDS ORDERED: ATORVASTATIN CA40 M1 PO (12:05)
[2024-03-09] MEDS ORDERED: FLUTICASONE P15.8 ML INH (12:06)
[2024-03-09] MEDS ORDERED: FEROSUL325 MG PO (12:15)
[2024-03-09] MEDS ORDERED: HYDRALAZINE HC100 MG PO (12:16)
[2024-03-09] MEDS ORDERED: PEPCID AC10 M2 PO (12:17)
[2024-03-09] MEDS ORDERED: LIDODERM1 EACH T (12:17)
[2024-03-09] MEDS ORDERED: ASMANEX HFA13 GM INH (12:17)
[2024-03-09] MEDS ORDERED: NATURE'S BLEND F1 MG PO (12:18)
[2024-03-09] MEDS ORDERED: SODIUM CHLORIDE 0.9% 500 ML IV ONE (13:00)
[2024-03-09 13:39] VITALS: BP 127/39
[2024-03-09] MEDS ORDERED: Gelatin Sponge 1 EACH SPON T ONE ×2 (13:45→13:51)
[2024-03-09 13:55] VITALS: BP 118/36
[2024-03-09 14:25] VITALS: BP 113/36
[2024-03-09 15:25] VITALS: BP 122/45
== END 2024-03-09 16:10 ==
LOC: ED 11:30
PROVIDERS: Internal Medicine
DX: D64.9 Anemia, unspecified (principal); E11.9 Type 2 diabetes mellitus without complications; I25.10 Atherosclerotic heart disease of native coronary artery without angina pectoris; J44.9 Chronic obstructive pulmonary disease, unspecified; K21.9 Gastro-esophageal reflux disease without esophagitis; E78.5 Hyperlipidemia, unspecified; E11.22 Type 2 diabetes mellitus with diabetic chronic kidney disease; I13.0 Hypertensive heart and chronic kidney disease with heart failure and stage 1 through stage 4 chronic kidney disease, or unspecified chronic kidney disease; N18.4 Chronic kidney disease, stage 4 (severe); I48.91 Unspecified atrial fibrillation; Z88.5 Allergy status to narcotic agent; Z88.8 Allergy status to other drugs, medicaments and biological substances; Z88.6 Allergy status to analgesic agent; Z87.891 Personal history of nicotine dependence; Z95.5 Presence of coronary angioplasty implant and graft; Z98.890 Other specified postprocedural states

== ENCOUNTER 2024-03-12 03:56 | Inpatient (IN) | payer OTHER ==
[2024-03-12] VITALS (23 sets, daily range): BP systolic 122–158; BP diastolic 37–104
[~2024-03-12] VITALS: Ht 177.8 cm; Wt 119.7 kg
[~2024-03-12 03:56] MED LIST changes: +ASMANEX HFA13 GM INH; +FLUTICASONE P15.8 ML INH; +HYDRALAZINE HC100 MG PO; +LIDODERM1 EACH T; +NATURE'S BLEND F1 MG PO; +PEPCID AC10 M2 PO
[2024-03-12 04:46] LABS: HEMATOCRIT 21.3 % (42.0-52.0); MANUAL DIFF REFLEX YES; MEAN CORPUSCULAR HGB 27.8 pg (27.0-31.0); MEAN CORPUSCULAR HGB CONC 30.5 g/dl (33.0-37.0); MEAN PLATELET VOLUME 8.9 fl (9.6-12.3); PLATELET COUNT AUTOMATED 175 10*3/uL (130-400); RED BLOOD COUNT 2.34 10*6/uL (4.50-5.90); RED CELL DISTRI WIDTH 18.6 % (0-14.5); WHITE BLOOD COUNT 6.6 10*3/uL (4.8-10.8)
[2024-03-12 05:08] LABS: MICROCYTOSIS SLIGHT; OVALOCYTES FEW; PLATELET SUFFICIENCY NORMAL (NORMAL); TOTAL CELLS COUNTED 100 #CELLS
[2024-03-12] MEDS ORDERED: SODIUM CHLORIDE 0.9% 500 ML IV ONE ×2 (06:24→09:13)
[2024-03-12] MEDS ORDERED: OXYCODONE HCL (IR) 10 MG TABLET PO ONE (10:50)
[2024-03-12] MEDS ORDERED: Ondansetron Hydrochloride 4 MG/2 ML VIAL IV PRN (13:05)
[2024-03-12] MEDS ORDERED: TEMAZEPAM 15 MG CAP PO PRN (13:05)
[2024-03-12] MEDS ORDERED: Magnesium Hydroxide 30 ML UDC PO PRN (13:05)
[2024-03-12] MEDS ORDERED: BISACODYL 5 MG TAB PO PRN (13:05)
[2024-03-12] MEDS ORDERED: BISACODYL 10 MG SUPP R PRN (13:05)
[2024-03-12] MEDS ORDERED: MORPHINE Sulfate 2 MG/ML SYR IV PRN (13:05)
[2024-03-12] MEDS ORDERED: PIPERACILLIN SODIUM/TAZOBACTAM 2.25 GM in SODIUM CHLORIDE 0.9% 50 ML IV SCH ×2 (14:00→21:00)
[2024-03-12 14:03] LABS: POTASSIUM 5.8 mmol/L (3.4-5.1); TOTAL PROTEIN 6.9 gm/dL (6.0-8.0)
[2024-03-12 14:22] LABS: BASO % 0.5 % (0.0-1.0); EOS # 0.1 10*3/uL (0.0-0.4); EOS % 1.2 % (1.0-4.0); HEMATOCRIT 27.5 % (42.0-52.0); MEAN CELL VOLUME 91.7 fl (80.0-94.0); MEAN CORPUSCULAR HGB CONC 30.5 g/dl (33.0-37.0); MEAN PLATELET VOLUME 9.8 fl (9.6-12.3); MONO # 0.8 10*3/uL (0.1-1.0); MONO % 11.5 % (3.0-9.0); NEUT # 5.6 10*3/uL (2.3-7.9); NEUT % 77.1 % (47.0-73.0); PLATELET COUNT AUTOMATED 200 10*3/uL (130-400); RED CELL DISTRI WIDTH 17.9 % (0-14.5); WHITE BLOOD COUNT 7.3 10*3/uL (4.8-10.8)
[2024-03-12] MEDS ORDERED: VANCOMYCIN/WATER FOR INJ (PEG) 400 ML IV ONE (14:30)
[2024-03-12] MEDS ORDERED: ATORVASTATIN CALCIUM 40 MG TABLET PO SCH (22:00)
[2024-03-12] MEDS ORDERED: hydrALAZINE hydrochloride 50 MG TAB PO SCH (22:00)
[2024-03-13 05:40] VITALS: BP 148/56
[2024-03-13] MEDS ORDERED: CHAIR CUSHION DEVICE ONE (05:48)
[2024-03-13] MEDS ORDERED: HEEL PROTECTOR DEVICE ONE (05:48)
[2024-03-13 06:22] LABS: BASO % 0.5 % (0.0-1.0); EOS # 0.1 10*3/uL (0.0-0.4); EOS % 1.2 % (1.0-4.0); HEMATOCRIT 25.8 % (42.0-52.0); MEAN CELL VOLUME 90.8 fl (80.0-94.0); MEAN CORPUSCULAR HGB 28.2 pg (27.0-31.0); MEAN PLATELET VOLUME 9.8 fl (9.6-12.3); MONO # 0.8 10*3/uL (0.1-1.0); MONO % 10.9 % (3.0-9.0); NEUT # 5.6 10*3/uL (2.3-7.9); NEUT % 76.8 % (47.0-73.0); PLATELET COUNT AUTOMATED 197 10*3/uL (130-400); RED BLOOD COUNT 2.84 10*6/uL (4.50-5.90); RED CELL DISTRI WIDTH 18.1 % (0-14.5); WHITE BLOOD COUNT 7.3 10*3/uL (4.8-10.8)
[2024-03-13] MEDS ORDERED: OXYCODONE HCL PO (06:49)
[2024-03-13] MEDS ORDERED: OXYCODONE HYDRO15 MG PO (06:51)
[2024-03-13 06:53] LABS: FREE T4 1.04 ng/dl (0.89-1.76); POTASSIUM 5.1 mmol/L (3.4-5.1); TOTAL PROTEIN 6.3 gm/dL (6.0-8.0)
[2024-03-13 08:00] VITALS: BP 146/57
[2024-03-13 08:40] LABS: VITAMIN D, 25-HYDROXY 26.7 ng/mL (30-100)
[2024-03-13] MEDS ORDERED: amLODIPine besylate 5 MG TAB PO SCH (10:00)
[2024-03-13] MEDS ORDERED: LORATADINE 10 MG TAB PO SCH (10:00)
[2024-03-13] MEDS ORDERED: FAMOTIDINE 10 MG TAB PO SCH (10:00)
[2024-03-13] MEDS ORDERED: ISOSORBIDE MONONITRATE 60 MG TAB PO SCH (10:00)
[2024-03-13] MEDS ORDERED: ROPINIROLE HYDROCHLORIDE 0.5 MG PO SCH (10:00)
[2024-03-13] MEDS ORDERED: SILVER SULFADIAZINE 25 GM TUBE T SCH (10:00)
[2024-03-13] MEDS ORDERED: Lidocaine Hydrochloride 3% 30 GM CREAM T SCH (10:00)
[2024-03-13] MEDS ORDERED: HYDROmorphONE Hydrochloride 0.5 MG/0.5 ML SYRINGE IV ONE (11:35)
[2024-03-13 12:00] VITALS: BP 144/67
[2024-03-13] MEDS ORDERED: OXYCODONE HCL (IR) 5 MG TAB PO PRN (14:50)
[2024-03-13] MEDS ORDERED: OXYCODONE HCL 20 MG PO PRN (14:50)
[2024-03-13 16:00] VITALS: BP 125/49
[2024-03-13 20:00] VITALS: BP 115/74
[2024-03-13 21:50] VITALS: BP 152/54
[2024-03-13] MEDS ORDERED: GABAPENTIN 100 MG CAP PO SCH (22:00)
[2024-03-13] MEDS ORDERED: FOAM BANDAGE 1 EACH BANDAGE T ONE (22:15)
[2024-03-13] MEDS ORDERED: FOAM BANDAGE 5X5 T ONE (22:15)
[2024-03-14] VITALS: BP 141/45
[2024-03-14 06:12] LABS: POTASSIUM 5.9 mmol/L (3.4-5.1)
[2024-03-14 06:30] LABS: BASO % 0.5 % (0.0-1.0); EOS # 0.1 10*3/uL (0.0-0.4); EOS % 1.9 % (1.0-4.0); HEMATOCRIT 24.6 % (42.0-52.0); MEAN CELL VOLUME 93.2 fl (80.0-94.0); MEAN CORPUSCULAR HGB 27.7 pg (27.0-31.0); MEAN CORPUSCULAR HGB CONC 29.7 g/dl (33.0-37.0); MEAN PLATELET VOLUME 9.3 fl (9.6-12.3); MONO # 0.8 10*3/uL (0.1-1.0); MONO % 12.9 % (3.0-9.0); NEUT # 4.6 10*3/uL (2.3-7.9); NEUT % 72.5 % (47.0-73.0); PLATELET COUNT AUTOMATED 203 10*3/uL (130-400); RED BLOOD COUNT 2.64 10*6/uL (4.50-5.90); RED CELL DISTRI WIDTH 18.2 % (0-14.5); WHITE BLOOD COUNT 6.4 10*3/uL (4.8-10.8)
[2024-03-14] MEDS ORDERED: MANNITOL 12.5 GM/50 ML VIAL IV SCH (07:55)
[2024-03-14] MEDS ORDERED: HEPARIN SODIUM 5,000 UNIT/ML VIAL IV SCH (07:55)
[2024-03-14] MEDS ORDERED: HEPARIN SODIUM 10,000 UN/10 ML VIAL IV SCH (07:55)
[2024-03-14] MEDS ORDERED: SODIUM CHLORIDE 0.9% 1,000 ML IV SCH (07:55)
[2024-03-14] MEDS ORDERED: ALBUMIN 25% 50 ML IV PRN (07:55)
[2024-03-14] MEDS ORDERED: SODIUM CHLORIDE 0.9% 1,000 ML BAG IV ONE (08:40)
[2024-03-14] MEDS ORDERED: HEPARIN SODIUM 10,000 UN/10 ML VIAL IV ONE (08:40)
[2024-03-14] MEDS ORDERED: FOLIC ACID 1 MG TAB PO SCH (10:00)
[2024-03-14] MEDS ORDERED: ASPIRIN ENTERIC COATED 81 MG TAB PO SCH (10:00)
[2024-03-14 12:00] VITALS: BP 144/78
[2024-03-14] MEDS ORDERED: FOAM BANDAGE 5X5 T ONE (14:32)
[2024-03-14 16:00] VITALS: BP 153/52
[2024-03-14] MEDS ORDERED: Vancomycin Hydrochloride 750 MG in SODIUM CHLORIDE 0.9% 250 ML IV SCH (16:00)
[2024-03-14 20:00] VITALS: BP 162/60
[2024-03-14] MEDS ORDERED: Meropenem 500 MG in SODIUM CHLORIDE 0.9% 50 ML IV SCH (23:30)
[2024-03-15] VITALS: BP 158/55
[2024-03-15 05:56] LABS: POTASSIUM 5.5 mmol/L (3.4-5.1)
[2024-03-15 06:36] LABS: BASO % 0.2 % (0.0-1.0); EOS # 0.1 10*3/uL (0.0-0.4); EOS % 1.7 % (1.0-4.0); HEMATOCRIT 24.9 % (42.0-52.0); MEAN CELL VOLUME 92.2 fl (80.0-94.0); MEAN CORPUSCULAR HGB 28.1 pg (27.0-31.0); MEAN CORPUSCULAR HGB CONC 30.5 g/dl (33.0-37.0); MEAN PLATELET VOLUME 9.3 fl (9.6-12.3); MONO # 0.8 10*3/uL (0.1-1.0); MONO % 12.9 % (3.0-9.0); NEUT # 4.9 10*3/uL (2.3-7.9); NEUT % 74.3 % (47.0-73.0); PLATELET COUNT AUTOMATED 217 10*3/uL (130-400); RED CELL DISTRI WIDTH 17.9 % (0-14.5); WHITE BLOOD COUNT 6.5 10*3/uL (4.8-10.8)
[2024-03-15 08:00] VITALS: BP 136/53
[2024-03-15 12:00] VITALS: BP 153/62
[2024-03-15] MEDS ORDERED: Meropenem 50 ML IV SCH (12:00)
[2024-03-15 16:00] VITALS: BP 115/82
[2024-03-15] MEDS ORDERED: LEVOFLOXACIN 750 MG TAB PO ONE (18:40)
[2024-03-15 20:00] VITALS: BP 175/50
[2024-03-16] VITALS (7 sets, daily range): BP systolic 144–169; BP diastolic 48–70
[2024-03-16 06:42] LABS: BASO % 0.3 % (0.0-1.0); EOS # 0.1 10*3/uL (0.0-0.4); EOS % 1.2 % (1.0-4.0); HEMATOCRIT 25.7 % (42.0-52.0); MEAN CELL VOLUME 91.8 fl (80.0-94.0); MEAN CORPUSCULAR HGB 27.9 pg (27.0-31.0); MEAN CORPUSCULAR HGB CONC 30.4 g/dl (33.0-37.0); MEAN PLATELET VOLUME 9.2 fl (9.6-12.3); MONO # 0.8 10*3/uL (0.1-1.0); MONO % 12.3 % (3.0-9.0); NEUT # 5.4 10*3/uL (2.3-7.9); NEUT % 79.3 % (47.0-73.0); PLATELET COUNT AUTOMATED 206 10*3/uL (130-400); RED CELL DISTRI WIDTH 17.5 % (0-14.5); WHITE BLOOD COUNT 6.8 10*3/uL (4.8-10.8)
[2024-03-16 06:44] LABS: POTASSIUM 6.6 mmol/L (3.4-5.1)
[2024-03-16] MEDS ORDERED: CALCIUM GLUC IN NACL, ISO-OSM 100 ML IV ONE (06:45)
[2024-03-16] MEDS ORDERED: INSULIN REGULAR, HUMAN 1 UNIT/0.01 ML SC ONE (06:50)
[2024-03-16] MEDS ORDERED: [UNRECOGNIZED DRUG - OTHER] IV ONE (07:35)
[2024-03-16] MEDS ORDERED: DEXTROSE IV ONE (07:35)
[2024-03-16] MEDS ORDERED: INSULIN REGULAR, HUMAN 1 UNIT/0.01 ML IV ONE (07:40)
[2024-03-16] MEDS ORDERED: SODIUM POLYSTYRENE SULFONATE 15 GM/60 ML BOT PO ONE ×3 (07:40→16:35)
[2024-03-16 08:56] LABS: POTASSIUM 6.3 mmol/L (3.4-5.1)
[2024-03-16] MEDS ORDERED: FOAM BANDAGE 5X5 T ONE (11:54)
[2024-03-16 13:21] LABS: POTASSIUM 5.8 mmol/L (3.4-5.1)
[2024-03-16] MEDS ORDERED: AUGMENTIN 500500 M1 PO (18:29)
[2024-03-16] MEDS ORDERED: LEVOFLOXACIN500 MG PO (18:29)
[2024-03-16 23:39] LABS: POTASSIUM 5.7 mmol/L (3.4-5.1)
[2024-03-17] VITALS: BP 160/70
[2024-03-17 06:41] LABS: BASO % 0.4 % (0.0-1.0); EOS % 0.1 % (1.0-4.0); HEMATOCRIT 25.1 % (42.0-52.0); MEAN CELL VOLUME 90.6 fl (80.0-94.0); MEAN CORPUSCULAR HGB 27.8 pg (27.0-31.0); MEAN CORPUSCULAR HGB CONC 30.7 g/dl (33.0-37.0); MEAN PLATELET VOLUME 9.5 fl (9.6-12.3); MONO # 0.8 10*3/uL (0.1-1.0); MONO % 11.9 % (3.0-9.0); NEUT # 5.7 10*3/uL (2.3-7.9); NEUT % 82.9 % (47.0-73.0); PLATELET COUNT AUTOMATED 202 10*3/uL (130-400); RED BLOOD COUNT 2.77 10*6/uL (4.50-5.90); RED CELL DISTRI WIDTH 17.7 % (0-14.5); WHITE BLOOD COUNT 6.9 10*3/uL (4.8-10.8)
[2024-03-17 06:52] LABS: POTASSIUM 6.5 mmol/L (3.4-5.1)
[2024-03-17] MEDS ORDERED: CALCIUM GLUC IN NACL, ISO-OSM 100 ML IV ONE (06:55)
[2024-03-17] MEDS ORDERED: SODIUM POLYSTYRENE SULFONATE 15 GM/60 ML BOT PO ONE (07:05)
[2024-03-17] MEDS ORDERED: DEXTROSE 5% SALINE 0.45% 1,000 ML IV SCH (07:05)
[2024-03-17] MEDS ORDERED: INSULIN REGULAR, HUMAN 1 UNIT/0.01 ML IV ONE (07:05)
[2024-03-17 08:00] VITALS: BP 133/56
[2024-03-17] MEDS ORDERED: LEVOFLOXACIN 500 MG TAB PO SCH (10:00)
[2024-03-17 12:00] VITALS: BP 135/60
[2024-03-17] MEDS ORDERED: EPOETIN ALFA EPBX SC ONE (12:45)
[2024-03-17] MEDS ORDERED: Sevelamer Hydrochloride 800 MG TAB PO SCH (17:00)
[2024-03-17 20:00] VITALS: BP 138/51
[2024-03-18] VITALS: BP 130/60
[2024-03-18 06:38] LABS: BASO % 0.5 % (0.0-1.0); EOS # 0.1 10*3/uL (0.0-0.4); EOS % 2.1 % (1.0-4.0); HEMATOCRIT 24.5 % (42.0-52.0); MEAN CELL VOLUME 90.1 fl (80.0-94.0); MEAN CORPUSCULAR HGB 27.6 pg (27.0-31.0); MEAN CORPUSCULAR HGB CONC 30.6 g/dl (33.0-37.0); MEAN PLATELET VOLUME 8.9 fl (9.6-12.3); MONO # 0.7 10*3/uL (0.1-1.0); MONO % 17.4 % (3.0-9.0); NEUT % 69.9 % (47.0-73.0); PLATELET COUNT AUTOMATED 168 10*3/uL (130-400); RED BLOOD COUNT 2.72 10*6/uL (4.50-5.90); RED CELL DISTRI WIDTH 17.8 % (0-14.5); WHITE BLOOD COUNT 4.3 10*3/uL (4.8-10.8)
[2024-03-18 08:00] VITALS: BP 123/50
[2024-03-18] MEDS ORDERED: SODIUM CHLORIDE 0.9% 1,000 ML BAG IV ONE (08:16)
[2024-03-18] MEDS ORDERED: HEPARIN SODIUM 10,000 UN/10 ML VIAL IV ONE (08:16)
[2024-03-18] MEDS ORDERED: Amoxicillin/Clavulanate Pota 500 MG TAB PO SCH (10:00)
[2024-03-18 12:00] VITALS: BP 141/52
== END 2024-03-18 17:53 | DRG 383 ==
LOC: ED 03:56 → 4E 12:49 → EDHOLD 12:49 → 4E 20:42
PROVIDERS: Family Medicine; Internal Medicine; Student in an Organized Health Care Education/Training Program; ADMIT Internal Medicine; ATTEND Internal Medicine
PROC: 30233N1 Transfusion of Nonautologous Red Blood Cells into Peripheral Vein, Percutaneous Approach (ICD-10-PCS; principal; 2024-03-12)
PROC: 0HB8XZZ Excision of Buttock Skin, External Approach (ICD-10-PCS; 2024-03-13)
PROC: 5A1D70Z Performance of Urinary Filtration, Intermittent, Less than 6 Hours Per Day (ICD-10-PCS; 2024-03-14)
PROC: 5A1D70Z Performance of Urinary Filtration, Intermittent, Less than 6 Hours Per Day (ICD-10-PCS; 2024-03-17)
DX: L03.116 Cellulitis of left lower limb (principal); E43 Unspecified severe protein-calorie malnutrition; N18.6 End stage renal disease; M86.072 Acute hematogenous osteomyelitis, left ankle and foot; L89.313 Pressure ulcer of right buttock, stage 3; E11.69 Type 2 diabetes mellitus with other specified complication; Z99.2 Dependence on renal dialysis; D64.9 Anemia, unspecified; R74.8 Abnormal levels of other serum enzymes; E11.65 Type 2 diabetes mellitus with hyperglycemia; I25.10 Atherosclerotic heart disease of native coronary artery without angina pectoris; E11.51 Type 2 diabetes mellitus with diabetic peripheral angiopathy without gangrene; I13.0 Hypertensive heart and chronic kidney disease with heart failure and stage 1 through stage 4 chronic kidney disease, or unspecified chronic kidney disease; I50.32 Chronic diastolic (congestive) heart failure; K21.9 Gastro-esophageal reflux disease without esophagitis; G89.4 Chronic pain syndrome; Z79.4 Long term (current) use of insulin; Z87.891 Personal history of nicotine dependence